=== PATIENT | male | born 1930 | race Caucasian/White ===

== ENCOUNTER 2017-07-23 23:27 | Inpatient (IN) | payer MEDICARE, OTHER ==
[~2017-07-23] VITALS: Ht 175.3 cm; Wt 64.0 kg
[2017-07-24] MEDS ORDERED: NITR0.3T SL (00:15)
[2017-07-24] MEDS ORDERED: DIVA125C PO (00:15)
[2017-07-24] MEDS ORDERED: CARV25TA PO (00:15)
[2017-07-24] MEDS ORDERED: NORT10CA PO (00:15)
[2017-07-24] MEDS ORDERED: LISI2.5T PO (00:15)
[2017-07-24] MEDS ORDERED: SPIR25TA3 PO (00:15)
[2017-07-24] MEDS ORDERED: APIX2.5T PO (00:15)
[2017-07-24] MEDS ORDERED: RIVA1PAT22 TD (00:15)
[2017-07-24] MEDS ORDERED: ALPR0.254 PO (00:15)
[2017-07-24] MEDS ORDERED: SENN1TAB21 PO (00:15)
[2017-07-24 00:37] LABS: BASO # 0.1 x10^3/uL (0.0-0.2); BASO % 1 % (0-3); EOS # 0.6 x10^3/uL (0.0-0.7); EOS % 8 % (0-3); HEMATOCRIT 36.2 % (39.0-53.0); HEMOGLOBIN 12.3 g/dL (13.0-17.5); LYMPH # 2.2 x10^3/uL (1.0-4.8); LYMPH % 27 % (24-48); MEAN CORPUSCULAR HEMOGLOBIN 33 pg (25-35); MEAN CORPUSCULAR HGB CONC 34 g/dL (31-37); MEAN CORPUSCULAR VOLUME 97 fL (79-100); MONO # 0.9 x10^3/uL (0.0-1.1); MONO % 11 % (0-9); NEUT # 4.4 x10^3uL (1.8-7.7); NEUT % 54 % (31-73); PLATELET COUNT 219 x10^3/uL (140-400); RED BLOOD COUNT 3.73 x10^6/uL (4.30-5.70); RED CELL DISTRIBUTION WIDTH 13.9 % (11.5-14.5); WHITE BLOOD COUNT 8.1 x10^3/uL (4.0-11.0)
[2017-07-24 00:47] LABS: ALBUMIN 3.1 g/dL (3.4-5.0); ALBUMIN/GLOBULIN RATIO 0.7 (1.0-1.7); CREATININE 1.3 mg/dL (0.7-1.3); GFR 52.1; MAGNESIUM 1.8 mg/dL (1.8-2.4); POTASSIUM 3.8 mmol/L (3.5-5.1); TOTAL BILIRUBIN 0.3 mg/dL (0.2-1.0); TOTAL PROTEIN 7.4 g/dL (6.4-8.2)
[2017-07-24 00:49] LABS: VAL ACID 24 mcg/mL (50-100)
[2017-07-24 01:13] LABS: CLARITY,URINE CLEAR; COLOR,URINE YELLOW
[2017-07-24 01:14] LABS: BACTERIA,URINE 0 /HPF (0-FEW); BILIRUBIN,URINE NEG (NEG); GLUCOSE,URINE NEG (NEG); NITRITE,URINE NEG (NEG); RBC,URINE 0 /HPF (0-2); SQUAMOUS EPITHELIAL CELL,UR OCC /LPF; UROBILINOGEN,URINE 0.2 mg/dL (0.2 mg/dL); WBC,URINE OCC /HPF (0-4)
--- NOTE | 2017-07-24 02:16 | EKG ---
[address] [address] Test Date: 2017-07-23 Test Time: 23:58:19 Pat Name: PATI CAIN Department: Room: [facility] 1 Gender: M Floating Operator: WENDY : 1930 Requested By: FRANCISCO FLORES Order Number: [id number] Reading MD: Jovani Poole Measurements Intervals [place] Rate: 75 P: MS: QRS: -160 QRSD: 184 T: -2 QT: 460 QTc: 517 Interpretive Statements SINUS RHYTHM V PACED BEATS NONSPECIFIC ST-T WAVE CHANGES ABNORMAL ECG RI6.01 No previous ECG available for comparison Electronically Signed On 07-24-2017 16:57:00 [employer]LET TEACHER by Jovani Poole
[2017-07-24] MEDS ORDERED: NORTRIPTYLINE 10 MG CAPSULE PO SCH (02:30)
[2017-07-24] MEDS: DIVALPROEX 125 MG CAP.SPRINK PO SCH ×3 (02:31→20:23)
[2017-07-24] MEDS: ALPRAZolam 0.25 MG TABLET PO PRN (02:31)
[2017-07-24 03:12] VITALS: BP 114/61
--- NOTE | 2017-07-24 03:54 | PHYS DOC ---
Past History Past Medical History: A-Fib, Anxiety, CAD, CHF, Dementia, GERD Past Surgical History: Coronary Bypass Surgery, Pacemaker Alcohol Use: None Drug Use: None Adult General Chief Complaint Chief Complaint: PSYCH EVALUATION HPI HPI 78-year-old male with history of dementia lives in a memory care unit now sent for medical clearance for psychiatric evaluation. Apparently patient has eloped from his living arrangement at least twice. There is also concerned that he was "making war references" to the [place] War in which she participated. Patient has no complaints and is cheerful and alert. No recent illness Review of Systems Review of Systems Constitutional: Denies fever or chills [] Eyes: Denies change in visual acuity, redness, or eye pain [] HENT: Denies nasal congestion or sore throat [] Respiratory: Denies cough or shortness of breath [] Cardiovascular: No additional information not addressed in HPI [] GI: Denies abdominal pain, nausea, vomiting, bloody stools or diarrhea [] : Denies dysuria or hematuria [] Musculoskeletal: Denies back pain or joint pain [] Integument: Denies rash or skin lesions [] Neurologic: Denies headache, focal weakness or sensory changes [] Endocrine: Denies polyuria or polydipsia [] All other systems were reviewed and found to be within normal limits, except as documented in this note. Allergies Allergies Allergies Coded Allergies Type Severity Reaction Last Updated Verified Emlqefb-Nwm-Frb Reductase Inhibitor Allergy Unknown 07/24/17 Yes morphine Allergy Unknown 07/24/17 Yes niacin Allergy Unknown 07/24/17 Yes Physical Exam Physical Exam Constitutional: Well developed, well nourished, no acute distress, non-toxic appearance. [] HENT: Normocephalic, atraumatic, bilateral external ears normal, oropharynx moist, no oral exudates, nose normal. [] Eyes: PERRLA, EOMI, conjunctiva normal, no discharge. [] Neck: Normal range of motion, no tenderness, supple, no stridor. [] Cardiovascular:Heart rate regular rhythm, no murmur [] Lungs & Thorax: Bilateral breath sounds clear to auscultation [] Abdomen: Bowel sounds normal, soft, no tenderness, no masses, no pulsatile masses. [] Skin: Warm, dry, no erythema, no rash. [] Back: No tenderness, no CVA tenderness. [] Extremities: No tenderness, no cyanosis, no clubbing, ROM intact, no edema. [] Neurologic: Alert and oriented X 3, normal motor function, normal sensory function, no focal deficits noted. [] Psychologic: Affect normal, judgement normal, mood normal. [] Current Patient Data Vital Signs Vital Signs Date Time Temp Pulse Resp B/P (MAP) Pulse Ox O2 Delivery O2 Flow Rate FiO2 07/24/17 03:12 97.5 75 22 114/61 (78) 98 Room Air Lab Results Laboratory Tests Test 07/23/17 23:59 07/24/17 00:57 White Blood Count 8.1 x10^3/uL (4.0-11.0) Red Blood Count 3.73 x10^6/uL (4.30-5.70) L Hemoglobin 12.3 g/dL (13.0-17.5) L Hematocrit 36.2 % (39.0-53.0) L Mean Corpuscular Volume 97 fL (79-100) Mean Corpuscular Hemoglobin 33 pg (25-35) Mean Corpuscular Hemoglobin Concent 34 g/dL (31-37) Red Cell Distribution Width 13.9 % (11.5-14.5) Platelet Count 219 x10^3/uL (140-400) Neutrophils (%) (Auto) 54 % (31-73) Lymphocytes (%) (Auto) 27 % (24-48) Monocytes (%) (Auto) 11 % (0-9) H Eosinophils (%) (Auto) 8 % (0-3) H Basophils (%) (Auto) 1 % (0-3) Neutrophils # (Auto) 4.4 x10^3uL (1.8-7.7) Lymphocytes # (Auto) 2.2 x10^3/uL (1.0-4.8) Monocytes # (Auto) 0.9 x10^3/uL (0.0-1.1) Eosinophils # (Auto) 0.6 x10^3/uL (0.0-0.7) Basophils # (Auto) 0.1 x10^3/uL (0.0-0.2) Sodium Level 137 mmol/L (136-145) Potassium Level 3.8 mmol/L (3.5-5.1) Chloride Level 102 mmol/L (98-107) Carbon Dioxide Level 26 mmol/L (21-32) Anion Gap 9 (6-14) Blood Urea Nitrogen 23 mg/dL (8-26) Creatinine 1.3 mg/dL (0.7-1.3) Estimated GFR (Cockcroft-Gault) 52.1 BUN/Creatinine Ratio 18 (6-20) Glucose Level 120 mg/dL (70-99) H Calcium Level 9.0 mg/dL (8.5-10.1) Magnesium Level 1.8 mg/dL (1.8-2.4) Total Bilirubin 0.3 mg/dL (0.2-1.0) Aspartate Amino Transferase (AST) 31 U/L (15-37) Alanine Aminotransferase (ALT) 14 U/L (16-63) L Alkaline Phosphatase 62 U/L (46-116) Total Protein 7.4 g/dL (6.4-8.2) Albumin 3.1 g/dL (3.4-5.0) L Albumin/Globulin Ratio 0.7 (1.0-1.7) L Valproic Acid Level 24 mcg/mL (50-100) L Valproic Acid Last Dose Date 07/23/2017 Valproic Acid Last Dose Time 2100 Urine Collection Type Unknown Urine Color Yellow Urine Clarity Clear Urine pH 5.0 Urine Specific [place] 1.020 Urine Protein Neg (NEG-TRACE) Urine Glucose (UA) Neg mg/dL (NEG) Urine Ketones (Stick) Neg mg/dL (NEG) Urine Blood Neg (NEG) Urine Nitrite Neg (NEG) Urine Bilirubin Neg (NEG) Urine Urobilinogen Dipstick 0.2 mg/dL (0.2 mg/dL) Urine Leukocyte Esterase Neg (NEG) Urine RBC 0 /HPF (0-2) Urine WBC Occ /HPF (0-4) Urine Squamous Epithelial Cells Occ /LPF Urine Bacteria 0 /HPF (0-FEW) EKG EKG [] Radiology/Procedures Radiology/Procedures [] Course & Med Decision Making Course & Med Decision Making Pertinent Labs and Imaging studies reviewed. (See chart for details) Patient with behavioral difficulties and multiple elopements from his memory care unit. Laboratory workup unremarkable and patient medically clear for psychiatric evaluation. He is accepted to [facility] for further workup and treatment [] Dragon Disclaimer Dragon Disclaimer This electronic medical record was generated, in whole or in part, using a voice recognition dictation system. Departure Departure: Impression: Primary Impression: Dementia Additional Impression: Neurocognitive disorder Disposition: ADMITTED INPATIENT Condition: STABLE Referrals: ABHILASH BASILIO MD (PCP) Problem Qualifiers FRANCISCO FLORES MD Jul 24, 2017 03:54
[2017-07-24 06:10] VITALS: BP 104/55
[2017-07-24] MEDS ORDERED: SENNOSIDES/DOCUSATE 8.6/50MG TABLET. PO PRN (08:15)
[2017-07-24] MEDS ORDERED: NITROGLYCERIN SUBLINGUAL 0.4 MG BOTTLE OF 25. SL PRN (08:15)
[2017-07-24] MEDS: SPIRONOLACTONE 25 MG TABLET PO SCH (10:53)
[2017-07-24] MEDS: APIXABAN 2.5 MG TABLET PO SCH ×2 (10:53→20:23)
[2017-07-24] MEDS: LISINOPRIL 2.5 MG TABLET PO SCH (10:53)
[2017-07-24] MEDS: RIVASTIGMINE 4.6MG PATCH. TD SCH (10:54)
[2017-07-24] MEDS: CARVEDILOL 12.5 MG TABLET PO SCH ×2 (10:54→16:46)
[2017-07-24 14:28] LABS: THYROID STIM HORMONE (TSH) 1.551 uIU/mL (0.358-3.740)
[2017-07-24 16:34] VITALS: BP 128/89
[2017-07-24] MEDS: MIRTAZAPINE 7.5 MG TABLET. PO SCH ×2 (20:25→20:42)
[2017-07-24 21:11] LABS: T3 TOTAL 77 ng/dL (71-180); THYROXINE 5.3 ug/dL (4.5-12.0)
--- NOTE | 2017-07-24 22:42 | PDOC ---
Exam Note: Michi Note: Please also refer to the separate dictated note~for this date of service dictated separately.~Patient seen individually. Discussed the patient with Nursing staff reviewed the chart.~Reviewed interim history and current functioning. Reviewed vital signs,~Labs/ Radiology~and current medications noted below. Continue current treatment with the changes noted in the dictated addendum note Assessment: Vital Signs: Vital Signs Date Time Temp Pulse Resp B/P (MAP) Pulse Ox O2 Delivery O2 Flow Rate FiO2 07/24/17 16:46 96 128/89 07/24/17 16:34 97.9 18 98 07/24/17 03:12 Room Air Labs: Laboratory Tests Test 07/23/17 23:59 07/24/17 00:57 White Blood Count 8.1 x10^3/uL (4.0-11.0) Red Blood Count 3.73 x10^6/uL (4.30-5.70) L Hemoglobin 12.3 g/dL (13.0-17.5) L Hematocrit 36.2 % (39.0-53.0) L Mean Corpuscular Volume 97 fL (79-100) Mean Corpuscular Hemoglobin 33 pg (25-35) Mean Corpuscular Hemoglobin Concent 34 g/dL (31-37) Red Cell Distribution Width 13.9 % (11.5-14.5) Platelet Count 219 x10^3/uL (140-400) Neutrophils (%) (Auto) 54 % (31-73) Lymphocytes (%) (Auto) 27 % (24-48) Monocytes (%) (Auto) 11 % (0-9) H Eosinophils (%) (Auto) 8 % (0-3) H Basophils (%) (Auto) 1 % (0-3) Neutrophils # (Auto) 4.4 x10^3uL (1.8-7.7) Lymphocytes # (Auto) 2.2 x10^3/uL (1.0-4.8) Monocytes # (Auto) 0.9 x10^3/uL (0.0-1.1) Eosinophils # (Auto) 0.6 x10^3/uL (0.0-0.7) Basophils # (Auto) 0.1 x10^3/uL (0.0-0.2) Sodium Level 137 mmol/L (136-145) Potassium Level 3.8 mmol/L (3.5-5.1) Chloride Level 102 mmol/L (98-107) Carbon Dioxide Level 26 mmol/L (21-32) Anion Gap 9 (6-14) Blood Urea Nitrogen 23 mg/dL (8-26) Creatinine 1.3 mg/dL (0.7-1.3) Estimated GFR (Cockcroft-Gault) 52.1 BUN/Creatinine Ratio 18 (6-20) Glucose Level 120 mg/dL (70-99) H Calcium Level 9.0 mg/dL (8.5-10.1) Magnesium Level 1.8 mg/dL (1.8-2.4) Total Bilirubin 0.3 mg/dL (0.2-1.0) Aspartate Amino Transferase (AST) 31 U/L (15-37) Alanine Aminotransferase (ALT) 14 U/L (16-63) L Alkaline Phosphatase 62 U/L (46-116) Total Protein 7.4 g/dL (6.4-8.2) Albumin 3.1 g/dL (3.4-5.0) L Albumin/Globulin Ratio 0.7 (1.0-1.7) L Valproic Acid Level 24 mcg/mL (50-100) L Valproic Acid Last Dose Date 07/23/2017 Valproic Acid Last Dose Time 2100 Urine Collection Type Unknown Urine Color Yellow Urine Clarity Clear Urine pH 5.0 Urine Specific [place] 1.020 Urine Protein Neg (NEG-TRACE) Urine Glucose (UA) Neg mg/dL (NEG) Urine Ketones (Stick) Neg mg/dL (NEG) Urine Blood Neg (NEG) Urine Nitrite Neg (NEG) Urine Bilirubin Neg (NEG) Urine Urobilinogen Dipstick 0.2 mg/dL (0.2 mg/dL) Urine Leukocyte Esterase Neg (NEG) Urine RBC 0 /HPF (0-2) Urine WBC Occ /HPF (0-4) Urine Squamous Epithelial Cells Occ /LPF Urine Bacteria 0 /HPF (0-FEW) Current Medications: Meds: Current Medications Alprazolam (Xanax) 0.25 mg PRN QHS PRN PO ANXIETY / AGITATION Last administered on 07/24/17at 02:31; Start 07/24/17 at 02:30 Divalproex Sodium (Depakote Sprinkles) 125 mg BID PO Last administered on at 10:54; Start 07/24/17 at 02:30; Stop 07/24/17 at 19:23; Status DC Nortriptyline HCl (Pamelor) 10 mg QHS PO Last administered on 07/24/17at 02:31; Start 07/24/17 at 02:30; Stop 07/24/17 at 19:23; Status DC Rivastigmine (Exelon) 1 patch DAILY TD Last administered on 07/24/17at 10:54; Start 07/24/17 at 09:00 Apixaban (Eliquis) 2.5 mg BID PO Last administered on 07/24/17at 20:23; Start at 09:00 Lisinopril (Prinivil) 2.5 mg DAILY PO Last administered on 07/24/17at 10:53; Start 07/24/17 at 09:00 Senna/Docusate Sodium (Senna Plus) 1 tab PRN QHS PRN PO CONSTIPATION; Start 05/29 at 08:15 Spironolactone (Aldactone) 25 mg DAILY PO Last administered on 07/24/17at 10:53 ; Start 07/24/17 at 09:00 Carvedilol (Coreg) 25 mg BIDWMEALS PO Last administered on 07/24/17at 16:46; Start 07/24/17 at 08:00 Nitroglycerin (Nitrostat) 0.4 mg PRN Q5MIN PRN SL CHEST PAIN; Start 07/24/17 at 08:15 Divalproex Sodium (Depakote Sprinkles) 125 mg TID@0900,1700,2100 PO Last administered on 07/24/17at 20:23; Start 07/24/17 at 21:00 Mirtazapine (Remeron) 7.5 mg QHS PO ; Start 07/24/17 at 21:00 Active Scripts Active Reported Senna Plus Tablet (Sennosides/Docusate Sodium) 1 Each Tablet 1 Tab PO PRN QHS PRN Nitrostat (Nitroglycerin) 0.3 Mg Tab.subl 0.3 Mg SL PRN Q5MIN PRN MDD 3 doses in 15 minutes Alprazolam 0.25 Mg Tablet 0.25 Mg PO PRN QHS PRN Spironolactone 25 Mg Tablet 25 Mg PO DAILY EXELON 4.6mg/24hr (Rivastigmine) 1 Each Patch.td24 1 Patch TD DAILY Nortriptyline Hcl 10 Mg Capsule 10 Mg PO QHS Lisinopril 2.5 Mg Tablet 2.5 Mg PO DAILY Eliquis (Apixaban) 2.5 Mg Tablet 2.5 Mg PO BID Depakote Sprinkle (Divalproex Sodium) 125 Mg Cap.sprink 125 Mg PO BID Coreg (Carvedilol) 25 Mg Tablet 25 Mg PO BIDWMEALS I have reviewed the current psychotropics carefully including drug interactions. Risk benefit ratio favors no change other than as noted in my dictated progress note. Diagnosis: Problems: (1) Dementia (2) Neurocognitive disorder LUIS CARLOS GALVEZ MD Jul 24, 2017 22:42
[2017-07-25 02:08] LABS: HEMOGLOBIN A1C 5.5 % (4.8-5.6)
[2017-07-25 06:47] VITALS: BP 109/66
[2017-07-25] MEDS: APIXABAN 2.5 MG TABLET PO SCH ×3 (08:31→21:05)
[2017-07-25] MEDS: LISINOPRIL 2.5 MG TABLET PO SCH (08:31)
[2017-07-25] MEDS: SPIRONOLACTONE 25 MG TABLET PO SCH (08:31)
[2017-07-25] MEDS: DIVALPROEX 125 MG CAP.SPRINK PO SCH ×4 (08:31→21:07)
[2017-07-25] MEDS: RIVASTIGMINE 4.6MG PATCH. TD SCH (08:32)
[2017-07-25] MEDS: CARVEDILOL 12.5 MG TABLET PO SCH ×2 (08:32→16:39)
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
[2017-07-25 16:05] VITALS: BP 121/75
[2017-07-25] MEDS: MIRTAZAPINE 7.5 MG TABLET. PO SCH ×2 (21:00→21:05)
[2017-07-25] MEDS: traZODone 50 MG TABLET. PO SCH ×2 (21:00→21:07)
[2017-07-26 06:40] VITALS: BP 107/56
[2017-07-26] MEDS: CARVEDILOL 12.5 MG TABLET PO SCH ×3 (08:00→17:00)
[2017-07-26] MEDS: RIVASTIGMINE 4.6MG PATCH. TD SCH ×3 (09:00→14:10)
[2017-07-26] MEDS: DIVALPROEX 125 MG CAP.SPRINK PO SCH ×4 (09:00→23:39)
[2017-07-26] MEDS: SPIRONOLACTONE 25 MG TABLET PO SCH ×2 (09:00→09:39)
[2017-07-26] MEDS: LISINOPRIL 2.5 MG TABLET PO SCH ×2 (09:00→09:39)
[2017-07-26] MEDS: APIXABAN 2.5 MG TABLET PO SCH ×3 (09:00→23:37)
[2017-07-26 16:52] VITALS: BP 96/49
--- NOTE | 2017-07-26 18:58 | PDOC ---
Exam Note: Michi Note: This is late entry for 07.25.2017. Please also refer to the separate dictated note~for this date of service dictated separately.~Patient seen individually. Discussed the patient with Nursing staff reviewed the chart.~Reviewed interim history and current functioning. Reviewed vital signs,~Labs/ Radiology~and current medications noted below. Continue current treatment with the changes noted in the dictated addendum note Assessment: Vital Signs: Vital Signs Date Time Temp Pulse Resp B/P (MAP) Pulse Ox O2 Delivery O2 Flow Rate FiO2 07/26/17 16:52 98.1 75 16 96/49 (65) 98 07/26/17 06:40 Room Air I&O Intake and Output 07/26/17 07:00 Intake Total 1320 ml Balance 1320 ml Intake Oral 1320 ml Current Medications: Meds: Current Medications Alprazolam (Xanax) 0.25 mg PRN QHS PRN PO ANXIETY / AGITATION Last administered on 07/24/17 02:31; Start 07/24/17 at 02:30 Divalproex Sodium (Depakote Sprinkles) 125 mg BID PO Last administered on at 10:54; Start 07/24/17 at 02:30; Stop 07/24/17 at 19:23; Status DC Nortriptyline HCl (Pamelor) 10 mg QHS PO Last administered on 07/24/17at 02:31; Start 07/24/17 at 02:30; Stop 07/24/17 at 19:23; Status DC Rivastigmine (Exelon) 1 patch DAILY TD Last administered on 07/26/17at 14:10; Start 07/24/17 at 09:00; Stop 07/26/17 at 18:24; Status DC Apixaban (Eliquis) 2.5 mg BID PO Last administered on 07/25/17at 08:31; Start at 09:00 Lisinopril (Prinivil) 2.5 mg DAILY PO Last administered on 07/25/17at 08:31; Start 07/24/17 at 09:00 Senna/Docusate Sodium (Senna Plus) 1 tab PRN QHS PRN PO CONSTIPATION; Start 05/29 at 08:15 Spironolactone (Aldactone) 25 mg DAILY PO Last administered on 07/25/17at 08:31 ; Start 07/24/17 at 09:00 Carvedilol (Coreg) 25 mg BIDWMEALS PO Last administered on 07/25/17at 16:39; Start 07/24/17 at 08:00 Nitroglycerin (Nitrostat) 0.4 mg PRN Q5MIN PRN SL CHEST PAIN; Start 07/24/17 at 08:15 Divalproex Sodium (Depakote Sprinkles) 125 mg TID@0900,1700,2100 PO Last administered on 07/26/17at 17:08; Start 07/24/17 at 21:00 Mirtazapine (Remeron) 7.5 mg QHS PO ; Start 07/24/17 at 21:00; Stop 07/26/17 at 18:24; Status DC Trazodone HCl (Desyrel) 50 mg QHS PO ; Start 07/25/17 at 21:00 Trazodone HCl (Desyrel) 50 mg PRN QHS PRN PO insomnia ; Start 07/25/17 at 19:15 Mirtazapine (Remeron) 15 mg QHS PO ; Start 07/26/17 at 21:00 Risperidone (RisperDAL) 0.25 mg DAILY SL ; Start 07/27/17 at 09:00 Active Scripts Active Reported Senna Plus Tablet (Sennosides/Docusate Sodium) 1 Each Tablet 1 Tab PO PRN QHS PRN Nitrostat (Nitroglycerin) 0.3 Mg Tab.subl 0.3 Mg SL PRN Q5MIN PRN MDD 3 doses in 15 minutes Alprazolam 0.25 Mg Tablet 0.25 Mg PO PRN QHS PRN Spironolactone 25 Mg Tablet 25 Mg PO DAILY EXELON 4.6mg/24hr (Rivastigmine) 1 Each Patch.td24 1 Patch TD DAILY Nortriptyline Hcl 10 Mg Capsule 10 Mg PO QHS Lisinopril 2.5 Mg Tablet 2.5 Mg PO DAILY Eliquis (Apixaban) 2.5 Mg Tablet 2.5 Mg PO BID Depakote Sprinkle (Divalproex Sodium) 125 Mg Cap.sprink 125 Mg PO BID Coreg (Carvedilol) 25 Mg Tablet 25 Mg PO BIDWMEALS I have reviewed the current psychotropics carefully including drug interactions. Risk benefit ratio favors no change other than as noted in my dictated progress note. 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
--- NOTE | 2017-07-26 19:17 | PDOC ---
Exam Note: Michi Note: Please also refer to the separate dictated note~for this date of service dictated separately.~Patient seen individually. Discussed the patient with Nursing staff reviewed the chart.~Reviewed interim history and current functioning. Reviewed vital signs,~Labs/ Radiology~and current medications noted below. Continue current treatment with the changes noted in the dictated addendum note Assessment: Vital Signs: Vital Signs Date Time Temp Pulse Resp B/P (MAP) Pulse Ox O2 Delivery O2 Flow Rate FiO2 07/26/17 16:52 98.1 75 16 96/49 (65) 98 07/26/17 06:40 Room Air I&O Intake and Output 07/26/17 07:00 Intake Total 1320 ml Balance 1320 ml Intake Oral 1320 ml Current Medications: Meds: Current Medications Alprazolam (Xanax) 0.25 mg PRN QHS PRN PO ANXIETY / AGITATION Last administered on 07/24/17 02:31; Start 07/24/17 at 02:30 Divalproex Sodium (Depakote Sprinkles) 125 mg BID PO Last administered on at 10:54; Start 07/24/17 at 02:30; Stop 07/24/17 at 19:23; Status DC Nortriptyline HCl (Pamelor) 10 mg QHS PO Last administered on 07/24/17 02:31; Start 07/24/17 at 02:30; Stop 07/24/17 at 19:23; Status DC Rivastigmine (Exelon) 1 patch DAILY TD Last administered on 07/26/17 14:10; Start 07/24/17 at 09:00; Stop 07/26/17 at 18:24; Status DC Apixaban (Eliquis) 2.5 mg BID PO Last administered on 07/25/17 08:31; Start at 09:00 Lisinopril (Prinivil) 2.5 mg DAILY PO Last administered on 07/25/17 08:31; Start 07/24/17 at 09:00 Senna/Docusate Sodium (Senna Plus) 1 tab PRN QHS PRN PO CONSTIPATION; Start 05/29 at 08:15 Spironolactone (Aldactone) 25 mg DAILY PO Last administered on 07/25/17at 08:31 ; Start 07/24/17 at 09:00 Carvedilol (Coreg) 25 mg BIDWMEALS PO Last administered on 07/25/17at 16:39; Start 07/24/17 at 08:00 Nitroglycerin (Nitrostat) 0.4 mg PRN Q5MIN PRN SL CHEST PAIN; Start 07/24/17 at 08:15 Divalproex Sodium (Depakote Sprinkles) 125 mg TID@0900,1700,2100 PO Last administered on 07/26/17at 17:08; Start 07/24/17 at 21:00 Mirtazapine (Remeron) 7.5 mg QHS PO ; Start 07/24/17 at 21:00; Stop 07/26/17 at 18:24; Status DC Trazodone HCl (Desyrel) 50 mg QHS PO ; Start 07/25/17 at 21:00 Trazodone HCl (Desyrel) 50 mg PRN QHS PRN PO insomnia ; Start 07/25/17 at 19:15 Mirtazapine (Remeron) 15 mg QHS PO ; Start 07/26/17 at 21:00 Risperidone (RisperDAL) 0.25 mg DAILY SL ; Start 07/27/17 at 09:00 Active Scripts Active Reported Senna Plus Tablet (Sennosides/Docusate Sodium) 1 Each Tablet 1 Tab PO PRN QHS PRN Nitrostat (Nitroglycerin) 0.3 Mg Tab.subl 0.3 Mg SL PRN Q5MIN PRN MDD 3 doses in 15 minutes Alprazolam 0.25 Mg Tablet 0.25 Mg PO PRN QHS PRN Spironolactone 25 Mg Tablet 25 Mg PO DAILY EXELON 4.6mg/24hr (Rivastigmine) 1 Each Patch.td24 1 Patch TD DAILY Nortriptyline Hcl 10 Mg Capsule 10 Mg PO QHS Lisinopril 2.5 Mg Tablet 2.5 Mg PO DAILY Eliquis (Apixaban) 2.5 Mg Tablet 2.5 Mg PO BID Depakote Sprinkle (Divalproex Sodium) 125 Mg Cap.sprink 125 Mg PO BID Coreg (Carvedilol) 25 Mg Tablet 25 Mg PO BIDWMEALS I have reviewed the current psychotropics carefully including drug interactions. Risk benefit ratio favors no change other than as noted in my dictated progress note. 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
[2017-07-26] MEDS ORDERED: MIRTAZAPINE 15 MG TABLET PO SCH (21:00)
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
[2017-07-26] MEDS: traZODone 50 MG TABLET. PO SCH (23:37)
[2017-07-27] MEDS: CARVEDILOL 12.5 MG TABLET PO SCH ×2 (08:00→18:45)
[2017-07-27] MEDS: APIXABAN 2.5 MG TABLET PO SCH ×2 (08:00→21:09)
[2017-07-27] MEDS: DIVALPROEX 125 MG CAP.SPRINK PO SCH ×2 (08:00→21:00)
[2017-07-27] MEDS: LISINOPRIL 2.5 MG TABLET PO SCH (09:00)
[2017-07-27] MEDS: SPIRONOLACTONE 25 MG TABLET PO SCH (09:00)
[2017-07-27 09:41] LABS: BASO # 0.1 x10^3/uL (0.0-0.2); BASO % 1 % (0-3); EOS # 0.7 x10^3/uL (0.0-0.7); EOS % 10 % (0-3); HEMATOCRIT 38.3 % (39.0-53.0); HEMOGLOBIN 12.9 g/dL (13.0-17.5); LYMPH # 1.9 x10^3/uL (1.0-4.8); LYMPH % 27 % (24-48); MEAN CORPUSCULAR HEMOGLOBIN 33 pg (25-35); MEAN CORPUSCULAR HGB CONC 34 g/dL (31-37); MEAN CORPUSCULAR VOLUME 97 fL (79-100); MONO # 0.9 x10^3/uL (0.0-1.1); MONO % 13 % (0-9); NEUT # 3.4 x10^3uL (1.8-7.7); NEUT % 49 % (31-73); PLATELET COUNT 223 x10^3/uL (140-400); RED BLOOD COUNT 3.96 x10^6/uL (4.30-5.70); WHITE BLOOD COUNT 6.9 x10^3/uL (4.0-11.0)
[2017-07-27 09:58] LABS: ALBUMIN/GLOBULIN RATIO 0.7 (1.0-1.7); ALK PHOS 58 U/L (46-116); ALT (SGPT) 13 U/L (16-63); ANION GAP 8 (6-14); AST (SGOT) 27 U/L (15-37); BLOOD UREA NITROGEN 24 mg/dL (8-26); BUN/CREATININE RATIO 18 (6-20); CALCIUM 9.2 mg/dL (8.5-10.1); CARBON DIOXIDE 28 mmol/L (21-32); CHLORIDE 103 mmol/L (98-107); CREATININE 1.3 mg/dL (0.7-1.3); GFR 52.1; GLUCOSE 140 mg/dL (70-99); MAGNESIUM 1.9 mg/dL (1.8-2.4); POTASSIUM 3.5 mmol/L (3.5-5.1); SODIUM 139 mmol/L (136-145); TOTAL BILIRUBIN 0.5 mg/dL (0.2-1.0); TOTAL PROTEIN 7.3 g/dL (6.4-8.2)
[2017-07-27 09:59] LABS: VAL ACID 27 mcg/mL (50-100)
[2017-07-27 10:07] LABS: % BANDS 1 % (0-9); % BASOS 2 % (0-3); % EOS 9 % (0-5); % LYMPHS 33 % (24-48); % MONOS 7 % (0-10); % SEGS 48 % (35-66)
[2017-07-27 10:08] LABS: PLT ESTIMATE ADEQUATE (ADEQUATE)
[2017-07-27 11:09] VITALS: BP 94/63
[2017-07-27] MEDS: risperiDONE ORAL 1 MG/ML 30ml BOTTLE. SL SCH (11:13)
[2017-07-27] MEDS: ALPRAZolam 0.25 MG TABLET PO PRN (14:55)
--- NOTE | 2017-07-27 19:45 | PDOC ---
Exam Note: Michi Note: Please also refer to the separate dictated note~for this date of service dictated separately.~Patient seen individually. Discussed the patient with Nursing staff reviewed the chart.~Reviewed interim history and current functioning. Reviewed vital signs,~Labs/ Radiology~and current medications noted below. Continue current treatment with the changes noted in the dictated addendum note Assessment: Vital Signs: Vital Signs Date Time Temp Pulse Resp B/P (MAP) Pulse Ox O2 Delivery O2 Flow Rate FiO2 07/27/17 11:09 73 94/63 (73) 98 07/26/17 16:52 98.1 16 07/26/17 06:40 Room Air I&O Intake and Output 07/27/17 07:00 Intake Total 600 ml Balance 600 ml Intake Oral 600 ml # Voids 1 Labs: Laboratory Tests Test 07/27/17 09:27 White Blood Count 6.9 x10^3/uL (4.0-11.0) Red Blood Count 3.96 x10^6/uL (4.30-5.70) L Hemoglobin 12.9 g/dL (13.0-17.5) L Hematocrit 38.3 % (39.0-53.0) L Mean Corpuscular Volume 97 fL (79-100) Mean Corpuscular Hemoglobin 33 pg (25-35) Mean Corpuscular Hemoglobin Concent 34 g/dL (31-37) Red Cell Distribution Width 14.0 % (11.5-14.5) Platelet Count 223 x10^3/uL (140-400) Neutrophils (%) (Auto) 49 % (31-73) Lymphocytes (%) (Auto) 27 % (24-48) Monocytes (%) (Auto) 13 % (0-9) H Eosinophils (%) (Auto) 10 % (0-3) H Basophils (%) (Auto) 1 % (0-3) Neutrophils # (Auto) 3.4 x10^3uL (1.8-7.7) Lymphocytes # (Auto) 1.9 x10^3/uL (1.0-4.8) Monocytes # (Auto) 0.9 x10^3/uL (0.0-1.1) Eosinophils # (Auto) 0.7 x10^3/uL (0.0-0.7) Basophils # (Auto) 0.1 x10^3/uL (0.0-0.2) Segmented Neutrophils % 48 % (35-66) Band Neutrophils % 1 % (0-9) Lymphocytes % 33 % (24-48) Monocytes % 7 % (0-10) Eosinophils % 9 % (0-5) H Basophils % 2 % (0-3) Platelet Estimate Adequate (ADEQUATE) Large Platelets Occ Sodium Level 139 mmol/L (136-145) Potassium Level 3.5 mmol/L (3.5-5.1) Chloride Level 103 mmol/L (98-107) Carbon Dioxide Level 28 mmol/L (21-32) Anion Gap 8 (6-14) Blood Urea Nitrogen 24 mg/dL (8-26) Creatinine 1.3 mg/dL (0.7-1.3) Estimated GFR (Cockcroft-Gault) 52.1 BUN/Creatinine Ratio 18 (6-20) Glucose Level 140 mg/dL (70-99) H Calcium Level 9.2 mg/dL (8.5-10.1) Magnesium Level 1.9 mg/dL (1.8-2.4) Total Bilirubin 0.5 mg/dL (0.2-1.0) Aspartate Amino Transferase (AST) 27 U/L (15-37) Alanine Aminotransferase (ALT) 13 U/L (16-63) L Alkaline Phosphatase 58 U/L (46-116) Total Protein 7.3 g/dL (6.4-8.2) Albumin 3.0 g/dL (3.4-5.0) L Albumin/Globulin Ratio 0.7 (1.0-1.7) L Valproic Acid Level 27 mcg/mL (50-100) L Valproic Acid Last Dose Date 07/26/2017 Valproic Acid Last Dose Time 2100 Current Medications: Meds: Current Medications Alprazolam (Xanax) 0.25 mg PRN QHS PRN PO ANXIETY / AGITATION Last administered on 07/27/17at 14:55; Start 07/24/17 at 02:30 Divalproex Sodium (Depakote Sprinkles) 125 mg BID PO Last administered on at 10:54; Start 07/24/17 at 02:30; Stop 07/24/17 at 19:23; Status DC Nortriptyline HCl (Pamelor) 10 mg QHS PO Last administered on 07/24/17at 02:31; Start 07/24/17 at 02:30; Stop 07/24/17 at 19:23; Status DC Rivastigmine (Exelon) 1 patch DAILY TD Last administered on 07/26/17at 14:10; Start 07/24/17 at 09:00; Stop 07/26/17 at 18:24; Status DC Apixaban (Eliquis) 2.5 mg BID PO Last administered on 07/27/17at 08:00; Start at 09:00 Lisinopril (Prinivil) 2.5 mg DAILY PO Last administered on 07/25/17at 08:31; Start 07/24/17 at 09:00 Senna/Docusate Sodium (Senna Plus) 1 tab PRN QHS PRN PO CONSTIPATION; Start 05/29 at 08:15 Spironolactone (Aldactone) 25 mg DAILY PO Last administered on 07/25/17at 08:31 ; Start 07/24/17 at 09:00 Carvedilol (Coreg) 25 mg BIDWMEALS PO Last administered on 07/25/17at 16:39; Start 07/24/17 at 08:00 Nitroglycerin (Nitrostat) 0.4 mg PRN Q5MIN PRN SL CHEST PAIN; Start 07/24/17 at 08:15 Divalproex Sodium (Depakote Sprinkles) 125 mg TID@0900,1700,2100 PO Last administered on 07/27/17at 08:00; Start 07/24/17 at 21:00; Stop 07/27/17 at 11:48 ; Status DC Mirtazapine (Remeron) 7.5 mg QHS PO ; Start 07/24/17 at 21:00; Stop 07/26/17 at 18:24; Status DC Trazodone HCl (Desyrel) 50 mg QHS PO Last administered on 07/26/17at 23:37; Start 07/25/17 at 21:00 Trazodone HCl (Desyrel) 50 mg PRN QHS PRN PO insomnia ; Start 07/25/17 at 19:15 Mirtazapine (Remeron) 15 mg QHS PO Last administered on 2/14/18at 23:39; Start 07/26/17 at 21:00; Stop 07/27/17 at 11:48; Status DC Risperidone (RisperDAL) 0.25 mg DAILY SL Last administered on 07/27/17at 11:13; Start 07/27/17 at 09:00 Divalproex Sodium (Depakote Sprinkles) 250 mg TID@0900,1700,2100 PO ; Start at 17:00 Amitriptyline HCl (Elavil) 25 mg QHS PO ; Start 07/27/17 at 21:00 Olanzapine (ZyPREXA ZYDIS) 5 mg 1X ONCE PO ; Start 07/27/17 at 19:00; Stop at 19:01; Status DC Olanzapine (ZyPREXA ZYDIS) 5 mg 1X ONCE PO ; Start 07/27/17 at 19:00; Stop at 19:01; Status DC Active Scripts Active Reported Senna Plus Tablet (Sennosides/Docusate Sodium) 1 Each Tablet 1 Tab PO PRN QHS PRN Nitrostat (Nitroglycerin) 0.3 Mg Tab.subl 0.3 Mg SL PRN Q5MIN PRN MDD 3 doses in 15 minutes Alprazolam 0.25 Mg Tablet 0.25 Mg PO PRN QHS PRN Spironolactone 25 Mg Tablet 25 Mg PO DAILY EXELON 4.6mg/24hr (Rivastigmine) 1 Each Patch.td24 1 Patch TD DAILY Nortriptyline Hcl 10 Mg Capsule 10 Mg PO QHS Lisinopril 2.5 Mg Tablet 2.5 Mg PO DAILY Eliquis (Apixaban) 2.5 Mg Tablet 2.5 Mg PO BID Depakote Sprinkle (Divalproex Sodium) 125 Mg Cap.sprink 125 Mg PO BID Coreg (Carvedilol) 25 Mg Tablet 25 Mg PO BIDWMEALS I have reviewed the current psychotropics carefully including drug interactions. Risk benefit ratio favors no change other than as noted in my dictated progress note. 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
[2017-07-27] MEDS: traZODone 50 MG TABLET. PO SCH (21:09)
[2017-07-27] MEDS: AMITRIPTYLINE HCL 25 MG TABLET PO SCH (21:09)
[2017-07-28] MEDS: APIXABAN 2.5 MG TABLET PO SCH ×2 (07:52→21:00)
[2017-07-28] MEDS: DIVALPROEX 125 MG CAP.SPRINK PO SCH ×4 (07:52→21:00)
[2017-07-28] MEDS: CARVEDILOL 12.5 MG TABLET PO SCH ×3 (08:00→17:04)
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
[2017-07-28 10:55] VITALS: BP 118/62
[2017-07-28] MEDS: LISINOPRIL 2.5 MG TABLET PO SCH (10:57)
[2017-07-28] MEDS: SPIRONOLACTONE 25 MG TABLET PO SCH (10:58)
[2017-07-28] MEDS: risperiDONE ORAL 1 MG/ML 30ml BOTTLE. SL SCH (11:03)
[2017-07-28 16:15] VITALS: BP 114/68
--- NOTE | 2017-07-28 20:02 | PDOC ---
Exam Note: Michi Note: Please also refer to the separate dictated note~for this date of service dictated separately.~Patient seen individually. Discussed the patient with Nursing staff reviewed the chart.~Reviewed interim history and current functioning. Reviewed vital signs,~Labs/ Radiology~and current medications noted below. Continue current treatment with the changes noted in the dictated addendum note Assessment: Vital Signs: Vital Signs Date Time Temp Pulse Resp B/P (MAP) Pulse Ox O2 Delivery O2 Flow Rate FiO2 07/28/17 16:15 97.6 75 18 114/68 (83) 98 07/28/17 10:55 Room Air I&O Intake and Output 07/28/17 07:00 Intake Total 840 ml Balance 840 ml Intake Oral 840 ml # Voids 1 Current Medications: Meds: Current Medications Alprazolam (Xanax) 0.25 mg PRN QHS PRN PO ANXIETY / AGITATION Last administered on 07/27/17at 14:55; Start 07/24/17 at 02:30 Divalproex Sodium (Depakote Sprinkles) 125 mg BID PO Last administered on at 10:54; Start 07/24/17 at 02:30; Stop 07/24/17 at 19:23; Status DC Nortriptyline HCl (Pamelor) 10 mg QHS PO Last administered on 07/24/17at 02:31; Start 07/24/17 at 02:30; Stop 07/24/17 at 19:23; Status DC Rivastigmine (Exelon) 1 patch DAILY TD Last administered on 07/26/17at 14:10; Start 07/24/17 at 09:00; Stop 07/26/17 at 18:24; Status DC Apixaban (Eliquis) 2.5 mg BID PO Last administered on 07/28/17at 07:52; Start at 09:00 Lisinopril (Prinivil) 2.5 mg DAILY PO Last administered on 07/28/17at 10:57; Start 07/24/17 at 09:00 Senna/Docusate Sodium (Senna Plus) 1 tab PRN QHS PRN PO CONSTIPATION; Start 05/29 at 08:15 Spironolactone (Aldactone) 25 mg DAILY PO Last administered on 07/28/17at 10:58 ; Start 07/24/17 at 09:00 Carvedilol (Coreg) 25 mg BIDWMEALS PO Last administered on 07/25/17at 16:39; Start 07/24/17 at 08:00 Nitroglycerin (Nitrostat) 0.4 mg PRN Q5MIN PRN SL CHEST PAIN; Start 07/24/17 at 08:15 Divalproex Sodium (Depakote Sprinkles) 125 mg TID@0900,1700,2100 PO Last administered on 07/27/17at 08:00; Start 07/24/17 at 21:00; Stop 07/27/17 at 11:48 ; Status DC Mirtazapine (Remeron) 7.5 mg QHS PO ; Start 07/24/17 at 21:00; Stop 07/26/17 at 18:24; Status DC Trazodone HCl (Desyrel) 50 mg QHS PO Last administered on 07/27/17at 21:09; Start 07/25/17 at 21:00 Trazodone HCl (Desyrel) 50 mg PRN QHS PRN PO insomnia ; Start 07/25/17 at 19:15 Mirtazapine (Remeron) 15 mg QHS PO Last administered on 07/26/17at 23:39; Start 07/26/17 at 21:00; Stop 07/27/17 at 11:48; Status DC Risperidone (RisperDAL) 0.25 mg DAILY SL Last administered on 07/28/17at 11:03; Start 07/27/17 at 09:00 Divalproex Sodium (Depakote Sprinkles) 250 mg TID@0900,1700,2100 PO Last administered on 07/28/17at 07:52; Start 07/27/17 at 17:00 Amitriptyline HCl (Elavil) 25 mg QHS PO Last administered on 07/27/17at 21:09; Start 07/27/17 at 21:00 Olanzapine (ZyPREXA ZYDIS) 5 mg 1X ONCE PO ; Start 07/27/17 at 19:00; Stop at 23:17; Status DC Olanzapine (ZyPREXA ZYDIS) 5 mg 1X ONCE PO ; Start 07/27/17 at 19:00; Stop at 23:17; Status DC Olanzapine (ZyPREXA ZYDIS) 5 mg 1X ONCE PO Last administered on 07/28/17at 08: 46; Start 07/28/17 at 08:00; Stop 07/28/17 at 08:01; Status DC Olanzapine (ZyPREXA ZYDIS) 5 mg 1X ONCE PO Last administered on 07/28/17at 09: 00; Start 07/28/17 at 09:00; Stop 07/28/17 at 09:01; Status DC Active Scripts Active Reported Senna Plus Tablet (Sennosides/Docusate Sodium) 1 Each Tablet 1 Tab PO PRN QHS PRN Nitrostat (Nitroglycerin) 0.3 Mg Tab.subl 0.3 Mg SL PRN Q5MIN PRN MDD 3 doses in 15 minutes Alprazolam 0.25 Mg Tablet 0.25 Mg PO PRN QHS PRN Spironolactone 25 Mg Tablet 25 Mg PO DAILY EXELON 4.6mg/24hr (Rivastigmine) 1 Each Patch.td24 1 Patch TD DAILY Nortriptyline Hcl 10 Mg Capsule 10 Mg PO QHS Lisinopril 2.5 Mg Tablet 2.5 Mg PO DAILY Eliquis (Apixaban) 2.5 Mg Tablet 2.5 Mg PO BID Depakote Sprinkle (Divalproex Sodium) 125 Mg Cap.sprink 125 Mg PO BID Coreg (Carvedilol) 25 Mg Tablet 25 Mg PO BIDWMEALS I have reviewed the current psychotropics carefully including drug interactions. Risk benefit ratio favors no change other than as noted in my dictated progress note. 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
[2017-07-28] MEDS: AMITRIPTYLINE HCL 25 MG TABLET PO SCH (21:00)
[2017-07-28] MEDS: traZODone 50 MG TABLET. PO SCH (21:00)
[2017-07-29 06:53] VITALS: BP 101/53
[2017-07-29] MEDS: LISINOPRIL 2.5 MG TABLET PO SCH (07:55)
[2017-07-29] MEDS: APIXABAN 2.5 MG TABLET PO SCH ×3 (07:55→21:00)
[2017-07-29] MEDS: CARVEDILOL 12.5 MG TABLET PO SCH ×2 (07:55→17:00)
[2017-07-29] MEDS: SPIRONOLACTONE 25 MG TABLET PO SCH (07:56)
[2017-07-29] MEDS: DIVALPROEX 125 MG CAP.SPRINK PO SCH ×4 (07:56→21:00)
[2017-07-29] MEDS: risperiDONE ORAL 1 MG/ML 30ml BOTTLE. SL SCH (07:57)
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
[2017-07-29 18:11] VITALS: BP 119/64
[2017-07-29] MEDS: AMITRIPTYLINE HCL 25 MG TABLET PO SCH ×2 (20:12→21:00)
[2017-07-29] MEDS: traZODone 50 MG TABLET. PO SCH ×2 (20:12→21:00)
--- NOTE | 2017-07-29 22:36 | PDOC ---
Exam Note: Michi Note: Please also refer to the separate dictated note~for this date of service dictated separately.~Patient seen individually. Discussed the patient with Nursing staff reviewed the chart.~Reviewed interim history and current functioning. Reviewed vital signs,~Labs/ Radiology~and current medications noted below. Continue current treatment with the changes noted in the dictated addendum note Assessment: Vital Signs: Vital Signs Date Time Temp Pulse Resp B/P (MAP) Pulse Ox O2 Delivery O2 Flow Rate FiO2 07/29/17 18:11 97.3 74 18 119/64 (82) 92 07/28/17 10:55 Room Air I&O Intake and Output 07/29/17 07:00 Intake Total 840 ml Balance 840 ml Intake Oral 840 ml # Voids 1 Current Medications: Meds: Current Medications Alprazolam (Xanax) 0.25 mg PRN QHS PRN PO ANXIETY / AGITATION Last administered on 07/27/17at 14:55; Start 07/24/17 at 02:30 Divalproex Sodium (Depakote Sprinkles) 125 mg BID PO Last administered on at 10:54; Start 07/24/17 at 02:30; Stop 07/24/17 at 19:23; Status DC Nortriptyline HCl (Pamelor) 10 mg QHS PO Last administered on 07/24/17at 02:31; Start 07/24/17 at 02:30; Stop 07/24/17 at 19:23; Status DC Rivastigmine (Exelon) 1 patch DAILY TD Last administered on 07/26/17at 14:10; Start 07/24/17 at 09:00; Stop 07/26/17 at 18:24; Status DC Apixaban (Eliquis) 2.5 mg BID PO Last administered on 07/29/17at 20:12; Start at 09:00 Lisinopril (Prinivil) 2.5 mg DAILY PO Last administered on 07/28/17at 10:57; Start 07/24/17 at 09:00 Senna/Docusate Sodium (Senna Plus) 1 tab PRN QHS PRN PO CONSTIPATION; Start 05/29 at 08:15 Spironolactone (Aldactone) 25 mg DAILY PO Last administered on 07/28/17at 10:58 ; Start 07/24/17 at 09:00 Carvedilol (Coreg) 25 mg BIDWMEALS PO Last administered on 07/25/17at 16:39; Start 07/24/17 at 08:00 Nitroglycerin (Nitrostat) 0.4 mg PRN Q5MIN PRN SL CHEST PAIN; Start 07/24/17 at 08:15 Divalproex Sodium (Depakote Sprinkles) 125 mg TID@0900,1700,2100 PO Last administered on 07/27/17at 08:00; Start 07/24/17 at 21:00; Stop 07/27/17 at 11:48 ; Status DC Mirtazapine (Remeron) 7.5 mg QHS PO ; Start 07/24/17 at 21:00; Stop 07/26/17 at 18:24; Status DC Trazodone HCl (Desyrel) 50 mg QHS PO Last administered on 07/29/17at 20:12; Start 07/25/17 at 21:00 Trazodone HCl (Desyrel) 50 mg PRN QHS PRN PO insomnia ; Start 07/25/17 at 19:15 Mirtazapine (Remeron) 15 mg QHS PO Last administered on 07/26/17at 23:39; Start 07/26/17 at 21:00; Stop 07/27/17 at 11:48; Status DC Risperidone (RisperDAL) 0.25 mg DAILY SL Last administered on 07/29/17at 07:57; Start 07/27/17 at 09:00 Divalproex Sodium (Depakote Sprinkles) 250 mg TID@0900,1700,2100 PO Last administered on 07/29/17at 20:21; Start 07/27/17 at 17:00 Amitriptyline HCl (Elavil) 25 mg QHS PO Last administered on 07/29/17at 20:12; Start 07/27/17 at 21:00 Olanzapine (ZyPREXA ZYDIS) 5 mg 1X ONCE PO ; Start 07/27/17 at 19:00; Stop at 23:17; Status DC Olanzapine (ZyPREXA ZYDIS) 5 mg 1X ONCE PO ; Start 07/27/17 at 19:00; Stop at 23:17; Status DC Olanzapine (ZyPREXA ZYDIS) 5 mg 1X ONCE PO Last administered on 07/28/17at 08: 46; Start 07/28/17 at 08:00; Stop 07/28/17 at 08:01; Status DC Olanzapine (ZyPREXA ZYDIS) 5 mg 1X ONCE PO Last administered on 07/28/17at 09: 00; Start 07/28/17 at 09:00; Stop 07/28/17 at 09:01; Status DC Active Scripts Active Reported Senna Plus Tablet (Sennosides/Docusate Sodium) 1 Each Tablet 1 Tab PO PRN QHS PRN Nitrostat (Nitroglycerin) 0.3 Mg Tab.subl 0.3 Mg SL PRN Q5MIN PRN MDD 3 doses in 15 minutes Alprazolam 0.25 Mg Tablet 0.25 Mg PO PRN QHS PRN Spironolactone 25 Mg Tablet 25 Mg PO DAILY EXELON 4.6mg/24hr (Rivastigmine) 1 Each Patch.td24 1 Patch TD DAILY Nortriptyline Hcl 10 Mg Capsule 10 Mg PO QHS Lisinopril 2.5 Mg Tablet 2.5 Mg PO DAILY Eliquis (Apixaban) 2.5 Mg Tablet 2.5 Mg PO BID Depakote Sprinkle (Divalproex Sodium) 125 Mg Cap.sprink 125 Mg PO BID Coreg (Carvedilol) 25 Mg Tablet 25 Mg PO BIDWMEALS I have reviewed the current psychotropics carefully including drug interactions. Risk benefit ratio favors no change other than as noted in my dictated progress note. 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
[2017-07-30] MEDS: AMITRIPTYLINE HCL 25 MG TABLET PO SCH ×3 (00:26→21:00)
[2017-07-30] MEDS: traZODone 50 MG TABLET. PO SCH ×2 (00:27→19:59)
[2017-07-30] MEDS: DIVALPROEX 125 MG CAP.SPRINK PO SCH ×4 (00:27→19:59)
[2017-07-30] MEDS: ALPRAZolam 0.25 MG TABLET PO PRN (02:01)
[2017-07-30 06:46] VITALS: BP 120/64
[2017-07-30] MEDS: APIXABAN 2.5 MG TABLET PO SCH ×3 (08:02→21:00)
[2017-07-30] MEDS: LISINOPRIL 2.5 MG TABLET PO SCH (08:02)
[2017-07-30] MEDS: SPIRONOLACTONE 25 MG TABLET PO SCH (08:02)
[2017-07-30] MEDS: CARVEDILOL 12.5 MG TABLET PO SCH ×2 (08:03→16:39)
[2017-07-30] MEDS: risperiDONE ORAL 1 MG/ML 30ml BOTTLE. SL SCH (08:04)
[2017-07-30 09:59] LABS: BASO # 0.1 x10^3/uL (0.0-0.2); BASO % 1 % (0-3); EOS # 0.7 x10^3/uL (0.0-0.7); EOS % 11 % (0-3); HEMATOCRIT 42.4 % (39.0-53.0); HEMOGLOBIN 14.4 g/dL (13.0-17.5); LYMPH # 2.1 x10^3/uL (1.0-4.8); LYMPH % 33 % (24-48); MEAN CORPUSCULAR HEMOGLOBIN 33 pg (25-35); MEAN CORPUSCULAR HGB CONC 34 g/dL (31-37); MEAN CORPUSCULAR VOLUME 98 fL (79-100); MONO # 0.8 x10^3/uL (0.0-1.1); MONO % 13 % (0-9); NEUT # 2.8 x10^3uL (1.8-7.7); NEUT % 43 % (31-73); PLATELET COUNT 220 x10^3/uL (140-400); RED BLOOD COUNT 4.33 x10^6/uL (4.30-5.70); RED CELL DISTRIBUTION WIDTH 14.4 % (11.5-14.5); WHITE BLOOD COUNT 6.6 x10^3/uL (4.0-11.0)
[2017-07-30 10:20] LABS: ALBUMIN 3.2 g/dL (3.4-5.0); ALBUMIN/GLOBULIN RATIO 0.7 (1.0-1.7); ALK PHOS 61 U/L (46-116); ALT (SGPT) 14 U/L (16-63); ANION GAP 9 (6-14); AST (SGOT) 32 U/L (15-37); BLOOD UREA NITROGEN 23 mg/dL (8-26); BUN/CREATININE RATIO 18 (6-20); CALCIUM 9.4 mg/dL (8.5-10.1); CARBON DIOXIDE 29 mmol/L (21-32); CHLORIDE 101 mmol/L (98-107); CREATININE 1.3 mg/dL (0.7-1.3); GFR 52.1; GLUCOSE 125 mg/dL (70-99); POTASSIUM 3.6 mmol/L (3.5-5.1); SODIUM 139 mmol/L (136-145); TOTAL BILIRUBIN 0.6 mg/dL (0.2-1.0); TOTAL PROTEIN 7.9 g/dL (6.4-8.2); VAL ACID 41 mcg/mL (50-100)
[2017-07-30 11:22] LABS: % BANDS 0 % (0-9); % BASOS 2 % (0-3); % EOS 11 % (0-5); % LYMPHS 38 % (24-48); % MONOS 9 % (0-10); % SEGS 40 % (35-66); PLT ESTIMATE ADEQUATE (ADEQUATE)
--- NOTE | 2017-07-30 20:17 | PDOC ---
Exam Note: Michi Note: Please also refer to the separate dictated note~for this date of service dictated separately.~Patient seen individually. Discussed the patient with Nursing staff reviewed the chart.~Reviewed interim history and current functioning. Reviewed vital signs,~Labs/ Radiology~and current medications noted below. Continue current treatment with the changes noted in the dictated addendum note Assessment: Vital Signs: Vital Signs Date Time Temp Pulse Resp B/P (MAP) Pulse Ox O2 Delivery O2 Flow Rate FiO2 07/30/17 16:39 77 120/64 07/30/17 06:46 98.2 16 100 07/28/17 10:55 Room Air I&O Intake and Output 07/30/17 07:00 Intake Total 480 ml Balance 480 ml Intake Oral 480 ml # Voids 1 Labs: Laboratory Tests Test 07/30/17 09:15 White Blood Count 6.6 x10^3/uL (4.0-11.0) Red Blood Count 4.33 x10^6/uL (4.30-5.70) Hemoglobin 14.4 g/dL (13.0-17.5) Hematocrit 42.4 % (39.0-53.0) Mean Corpuscular Volume 98 fL (79-100) Mean Corpuscular Hemoglobin 33 pg (25-35) Mean Corpuscular Hemoglobin Concent 34 g/dL (31-37) Red Cell Distribution Width 14.4 % (11.5-14.5) Platelet Count 220 x10^3/uL (140-400) Neutrophils (%) (Auto) 43 % (31-73) Lymphocytes (%) (Auto) 33 % (24-48) Monocytes (%) (Auto) 13 % (0-9) H Eosinophils (%) (Auto) 11 % (0-3) H Basophils (%) (Auto) 1 % (0-3) Neutrophils # (Auto) 2.8 x10^3uL (1.8-7.7) Lymphocytes # (Auto) 2.1 x10^3/uL (1.0-4.8) Monocytes # (Auto) 0.8 x10^3/uL (0.0-1.1) Eosinophils # (Auto) 0.7 x10^3/uL (0.0-0.7) Basophils # (Auto) 0.1 x10^3/uL (0.0-0.2) Segmented Neutrophils % 40 % (35-66) Band Neutrophils % 0 % (0-9) Lymphocytes % 38 % (24-48) Monocytes % 9 % (0-10) Eosinophils % 11 % (0-5) H Basophils % 2 % (0-3) Platelet Estimate Adequate (ADEQUATE) Large Platelets Present Sodium Level 139 mmol/L (136-145) Potassium Level 3.6 mmol/L (3.5-5.1) Chloride Level 101 mmol/L (98-107) Carbon Dioxide Level 29 mmol/L (21-32) Anion Gap 9 (6-14) Blood Urea Nitrogen 23 mg/dL (8-26) Creatinine 1.3 mg/dL (0.7-1.3) Estimated GFR (Cockcroft-Gault) 52.1 BUN/Creatinine Ratio 18 (6-20) Glucose Level 125 mg/dL (70-99) H Calcium Level 9.4 mg/dL (8.5-10.1) Total Bilirubin 0.6 mg/dL (0.2-1.0) Aspartate Amino Transferase (AST) 32 U/L (15-37) Alanine Aminotransferase (ALT) 14 U/L (16-63) L Alkaline Phosphatase 61 U/L (46-116) Total Protein 7.9 g/dL (6.4-8.2) Albumin 3.2 g/dL (3.4-5.0) L Albumin/Globulin Ratio 0.7 (1.0-1.7) L Valproic Acid Level 41 mcg/mL (50-100) L Valproic Acid Last Dose Date 07/29/17 Valproic Acid Last Dose Time 2100 Current Medications: Meds: Current Medications Alprazolam (Xanax) 0.25 mg PRN QHS PRN PO ANXIETY / AGITATION Last administered on 07/30/17 02:01; Start 07/24/17 at 02:30 Divalproex Sodium (Depakote Sprinkles) 125 mg BID PO Last administered on at 10:54; Start 07/24/17 at 02:30; Stop 07/24/17 at 19:23; Status DC Nortriptyline HCl (Pamelor) 10 mg QHS PO Last administered on 07/24/17at 02:31; Start 07/24/17 at 02:30; Stop 07/24/17 at 19:23; Status DC Rivastigmine (Exelon) 1 patch DAILY TD Last administered on 07/26/17at 14:10; Start 07/24/17 at 09:00; Stop 07/26/17 at 18:24; Status DC Apixaban (Eliquis) 2.5 mg BID PO Last administered on 07/30/17at 19:59; Start at 09:00 Lisinopril (Prinivil) 2.5 mg DAILY PO Last administered on 07/30/17at 08:02; Start 07/24/17 at 09:00 Senna/Docusate Sodium (Senna Plus) 1 tab PRN QHS PRN PO CONSTIPATION; Start 05/29 at 08:15 Spironolactone (Aldactone) 25 mg DAILY PO Last administered on 07/30/17at 08:02 ; Start 07/24/17 at 09:00 Carvedilol (Coreg) 25 mg BIDWMEALS PO Last administered on 07/30/17at 16:39; Start 07/24/17 at 08:00 Nitroglycerin (Nitrostat) 0.4 mg PRN Q5MIN PRN SL CHEST PAIN; Start 07/24/17 at 08:15 Divalproex Sodium (Depakote Sprinkles) 125 mg TID@0900,1700,2100 PO Last administered on 07/27/17at 08:00; Start 07/24/17 at 21:00; Stop 07/27/17 at 11:48 ; Status DC Mirtazapine (Remeron) 7.5 mg QHS PO ; Start 07/24/17 at 21:00; Stop 07/26/17 at 18:24; Status DC Trazodone HCl (Desyrel) 50 mg QHS PO Last administered on 07/30/17at 19:59; Start 07/25/17 at 21:00 Trazodone HCl (Desyrel) 50 mg PRN QHS PRN PO insomnia ; Start 07/25/17 at 19:15 Mirtazapine (Remeron) 15 mg QHS PO Last administered on 07/26/17at 23:39; Start 07/26/17 at 21:00; Stop 07/27/17 at 11:48; Status DC Risperidone (RisperDAL) 0.25 mg DAILY SL Last administered on 07/30/17at 08:04; Start 07/27/17 at 09:00 Divalproex Sodium (Depakote Sprinkles) 250 mg TID@0900,1700,2100 PO Last administered on 07/30/17at 19:59; Start 07/27/17 at 17:00 Amitriptyline HCl (Elavil) 25 mg QHS PO Last administered on 07/30/17at 19:59; Start 07/27/17 at 21:00 Olanzapine (ZyPREXA ZYDIS) 5 mg 1X ONCE PO ; Start 07/27/17 at 19:00; Stop at 23:17; Status DC Olanzapine (ZyPREXA ZYDIS) 5 mg 1X ONCE PO ; Start 07/27/17 at 19:00; Stop at 23:17; Status DC Olanzapine (ZyPREXA ZYDIS) 5 mg 1X ONCE PO Last administered on 07/28/17at 08: 46; Start 07/28/17 at 08:00; Stop 07/28/17 at 08:01; Status DC Olanzapine (ZyPREXA ZYDIS) 5 mg 1X ONCE PO Last administered on 07/28/17at 09: 00; Start 07/28/17 at 09:00; Stop 07/28/17 at 09:01; Status DC Active Scripts Active Reported Senna Plus Tablet (Sennosides/Docusate Sodium) 1 Each Tablet 1 Tab PO PRN QHS PRN Nitrostat (Nitroglycerin) 0.3 Mg Tab.subl 0.3 Mg SL PRN Q5MIN PRN MDD 3 doses in 15 minutes Alprazolam 0.25 Mg Tablet 0.25 Mg PO PRN QHS PRN Spironolactone 25 Mg Tablet 25 Mg PO DAILY EXELON 4.6mg/24hr (Rivastigmine) 1 Each Patch.td24 1 Patch TD DAILY Nortriptyline Hcl 10 Mg Capsule 10 Mg PO QHS Lisinopril 2.5 Mg Tablet 2.5 Mg PO DAILY Eliquis (Apixaban) 2.5 Mg Tablet 2.5 Mg PO BID Depakote Sprinkle (Divalproex Sodium) 125 Mg Cap.sprink 125 Mg PO BID Coreg (Carvedilol) 25 Mg Tablet 25 Mg PO BIDWMEALS I have reviewed the current psychotropics carefully including drug interactions. Risk benefit ratio favors no change other than as noted in my dictated progress note. 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
--- NOTE | 2017-07-30 22:34 | PN ---
DATE: 07/28/2017 This is a late entry 07/28/2017, covers the elements not covered in my initial note of 07/28/2017. SUBJECTIVE: I met with the patient in the evening of 07/28/2017. The patient slept 9-1/4 hours previous evening, remains quite disorganized, previous night he was calling people "baby killers." He was labile, very exit seeking, checking people's closets because he felt there were weapons hidden there. REVIEW OF SYSTEMS: No CV, , pulmonary, eye, ENT system symptoms on review. Reliability poor. MENTAL STATUS EXAM: Oriented to himself. Insight, judgment, recent and remote memory, attention, concentration, fund of knowledge poor, consistent with his diagnosis. IMPRESSION: Major neurocognitive disorder, possibly traumatic, status post intracranial hemorrhage with Alzheimer's, vascular with delusion, depression, behavioral disturbance. Rest unchanged. PLAN: Continue current psychotropics. We will go ahead and change Remeron to amitriptyline due to this seems to be helping his insomnia, start Risperdal on 07/30/2017. Attempts to do repeat CT head on 07/28/2017 failed and we will give Zyprexa 5 mg x 1 to help have this completed. Continue rest unchanged. LUIS CARLOS GALVEZ MD DR: MITCHELL/julio c JOB#: [id number] / [id number]
--- NOTE | 2017-07-30 23:16 | PN ---
DATE: 07/29/2017 This late entry 07/29/2017 covers elements not covered in my initial note 07/29/2017. Met with the patient in the evening of 07/29/2017. Overall, the patient remains confused, somewhat delusional. Seems to like sweets and we give him his meds and his vanilla ice cream. Slept [address] head shows frontal lobe damage bilaterally, which may well reflect some of the symptoms he is experiencing. REVIEW OF SYSTEMS: No CV, , pulmonary, eye, ENT system symptoms on review. Reliability poor. MENTAL STATUS EXAM: Oriented to himself. Insight, judgment, recent and remote memory, attention, concentration, fund of knowledge poor, consistent with his diagnosis mentioned in my initial note. IMPRESSION: Major neurocognitive disorder, possibly frontotemporal consequent to trauma, vascular with delusion, depression, behavioral disturbance. Rest unchanged. PLAN: Continue current psychotropics. Check labs on the Depakote on 07/30/2017. Adjust to reach a therapeutic level. Maintain Risperdal, trazodone, amitriptyline 25 mg at bedtime, and even with this, he slept just 3 hours previous evening. MAN Yamel GALVEZ MD DR: MITCHELL/julio c JOB#: [id number] / [id number]
[2017-07-31 06:18] VITALS: BP 105/64
[2017-07-31] MEDS: SPIRONOLACTONE 25 MG TABLET PO SCH (10:01)
[2017-07-31] MEDS: DIVALPROEX 125 MG CAP.SPRINK PO SCH ×3 (10:01→19:52)
[2017-07-31] MEDS: APIXABAN 2.5 MG TABLET PO SCH ×2 (10:01→19:52)
[2017-07-31] MEDS: CARVEDILOL 12.5 MG TABLET PO SCH ×2 (10:01→17:39)
[2017-07-31] MEDS: LISINOPRIL 2.5 MG TABLET PO SCH (10:01)
[2017-07-31] MEDS: risperiDONE ORAL 1 MG/ML 30ml BOTTLE. SL SCH (10:04)
[2017-07-31 16:05] VITALS: BP 107/69
[2017-07-31] MEDS: AMITRIPTYLINE HCL 25 MG TABLET PO SCH (19:52)
[2017-07-31] MEDS: traZODone 50 MG TABLET. PO SCH (19:53)
--- NOTE | 2017-07-31 20:05 | PDOC ---
Exam Note: Michi Note: Please also refer to the separate dictated note~for this date of service dictated separately.~Patient seen individually. Discussed the patient with Nursing staff reviewed the chart.~Reviewed interim history and current functioning. Reviewed vital signs,~Labs/ Radiology~and current medications noted below. Continue current treatment with the changes noted in the dictated addendum note Assessment: Vital Signs: Vital Signs Date Time Temp Pulse Resp B/P (MAP) Pulse Ox O2 Delivery O2 Flow Rate FiO2 07/31/17 17:39 74 107/69 07/31/17 16:05 97.6 19 95 07/28/17 10:55 Room Air I&O Intake and Output 07/31/17 07:00 Intake Total 845 ml Balance 845 ml Intake Oral 845 ml Current Medications: Meds: Current Medications Alprazolam (Xanax) 0.25 mg PRN QHS PRN PO ANXIETY / AGITATION Last administered on 07/30/17at 02:01; Start 07/24/17 at 02:30 Divalproex Sodium (Depakote Sprinkles) 125 mg BID PO Last administered on at 10:54; Start 07/24/17 at 02:30; Stop 07/24/17 at 19:23; Status DC Nortriptyline HCl (Pamelor) 10 mg QHS PO Last administered on 07/24/17at 02:31; Start 07/24/17 at 02:30; Stop 07/24/17 at 19:23; Status DC Rivastigmine (Exelon) 1 patch DAILY TD Last administered on 07/26/17at 14:10; Start 07/24/17 at 09:00; Stop 07/26/17 at 18:24; Status DC Apixaban (Eliquis) 2.5 mg BID PO Last administered on 07/31/17at 19:52; Start at 09:00 Lisinopril (Prinivil) 2.5 mg DAILY PO Last administered on 07/31/17at 10:01; Start 07/24/17 at 09:00 Senna/Docusate Sodium (Senna Plus) 1 tab PRN QHS PRN PO CONSTIPATION; Start 05/29 at 08:15 Spironolactone (Aldactone) 25 mg DAILY PO Last administered on 07/31/17at 10:01 ; Start 07/24/17 at 09:00 Carvedilol (Coreg) 25 mg BIDWMEALS PO Last administered on 07/31/17at 17:39; Start 07/24/17 at 08:00 Nitroglycerin (Nitrostat) 0.4 mg PRN Q5MIN PRN SL CHEST PAIN; Start 07/24/17 at 08:15 Divalproex Sodium (Depakote Sprinkles) 125 mg TID@0900,1700,2100 PO Last administered on 07/27/17at 08:00; Start 07/24/17 at 21:00; Stop 07/27/17 at 11:48 ; Status DC Mirtazapine (Remeron) 7.5 mg QHS PO ; Start 07/24/17 at 21:00; Stop 07/26/17 at 18:24; Status DC Trazodone HCl (Desyrel) 50 mg QHS PO Last administered on 07/31/17at 19:53; Start 07/25/17 at 21:00 Trazodone HCl (Desyrel) 50 mg PRN QHS PRN PO insomnia ; Start 07/25/17 at 19:15 Mirtazapine (Remeron) 15 mg QHS PO Last administered on 07/26/17at 23:39; Start 07/26/17 at 21:00; Stop 07/27/17 at 11:48; Status DC Risperidone (RisperDAL) 0.25 mg DAILY SL Last administered on 07/31/17at 10:04; Start 07/27/17 at 09:00 Divalproex Sodium (Depakote Sprinkles) 250 mg TID@0900,1700,2100 PO Last administered on 07/31/17at 19:52; Start 07/27/17 at 17:00 Amitriptyline HCl (Elavil) 25 mg QHS PO Last administered on 07/31/17at 19:52; Start 07/27/17 at 21:00 Olanzapine (ZyPREXA ZYDIS) 5 mg 1X ONCE PO ; Start 07/27/17 at 19:00; Stop at 23:17; Status DC Olanzapine (ZyPREXA ZYDIS) 5 mg 1X ONCE PO ; Start 07/27/17 at 19:00; Stop at 23:17; Status DC Olanzapine (ZyPREXA ZYDIS) 5 mg 1X ONCE PO Last administered on 07/28/17at 08: 46; Start 07/28/17 at 08:00; Stop 07/28/17 at 08:01; Status DC Olanzapine (ZyPREXA ZYDIS) 5 mg 1X ONCE PO Last administered on 07/28/17at 09: 00; Start 07/28/17 at 09:00; Stop 07/28/17 at 09:01; Status DC Active Scripts Active Reported Senna Plus Tablet (Sennosides/Docusate Sodium) 1 Each Tablet 1 Tab PO PRN QHS PRN Nitrostat (Nitroglycerin) 0.3 Mg Tab.subl 0.3 Mg SL PRN Q5MIN PRN MDD 3 doses in 15 minutes Alprazolam 0.25 Mg Tablet 0.25 Mg PO PRN QHS PRN Spironolactone 25 Mg Tablet 25 Mg PO DAILY EXELON 4.6mg/24hr (Rivastigmine) 1 Each Patch.td24 1 Patch TD DAILY Nortriptyline Hcl 10 Mg Capsule 10 Mg PO QHS Lisinopril 2.5 Mg Tablet 2.5 Mg PO DAILY Eliquis (Apixaban) 2.5 Mg Tablet 2.5 Mg PO BID Depakote Sprinkle (Divalproex Sodium) 125 Mg Cap.sprink 125 Mg PO BID Coreg (Carvedilol) 25 Mg Tablet 25 Mg PO BIDWMEALS I have reviewed the current psychotropics carefully including drug interactions. Risk benefit ratio favors no change other than as noted in my dictated progress note. 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
[2017-07-31] MEDS: ALPRAZolam 0.25 MG TABLET PO PRN (22:10)
[2017-07-31] MEDS: traZODone 50 MG TABLET. PO PRN (22:10)
[2017-08-01 06:18] VITALS: BP 97/51
[2017-08-01] MEDS: DIVALPROEX 125 MG CAP.SPRINK PO SCH ×3 (07:26→20:58)
[2017-08-01] MEDS: APIXABAN 2.5 MG TABLET PO SCH ×2 (07:26→20:59)
[2017-08-01 10:59] VITALS: BP 116/64
[2017-08-01] MEDS: SPIRONOLACTONE 25 MG TABLET PO SCH (11:00)
[2017-08-01] MEDS: risperiDONE ORAL 1 MG/ML 30ml BOTTLE. SL SCH (11:02)
[2017-08-01 16:43] VITALS: BP 112/62
[2017-08-01] MEDS: CARVEDILOL 6.25 MG TABLET PO SCH (17:19)
--- NOTE | 2017-08-01 20:06 | PDOC ---
Exam Note: Michi Note: Please also refer to the separate dictated note~for this date of service dictated separately.~Patient seen individually. Discussed the patient with Nursing staff reviewed the chart.~Reviewed interim history and current functioning. Reviewed vital signs,~Labs/ Radiology~and current medications noted below. Continue current treatment with the changes noted in the dictated addendum note Assessment: Vital Signs: Vital Signs Date Time Temp Pulse Resp B/P (MAP) Pulse Ox O2 Delivery O2 Flow Rate FiO2 08/01/17 17:19 75 112/62 08/01/17 16:43 98.3 20 100 08/01/17 10:59 Room Air I&O Intake and Output 08/01/17 07:00 Intake Total 725 ml Balance 725 ml Intake Oral 725 ml Current Medications: Meds: Current Medications Alprazolam (Xanax) 0.25 mg PRN QHS PRN PO ANXIETY / AGITATION Last administered on 07/31/17at 22:10; Start 07/24/17 at 02:30 Divalproex Sodium (Depakote Sprinkles) 125 mg BID PO Last administered on at 10:54; Start 07/24/17 at 02:30; Stop 07/24/17 at 19:23; Status DC Nortriptyline HCl (Pamelor) 10 mg QHS PO Last administered on 07/24/17at 02:31; Start 07/24/17 at 02:30; Stop 07/24/17 at 19:23; Status DC Rivastigmine (Exelon) 1 patch DAILY TD Last administered on 07/26/17at 14:10; Start 07/24/17 at 09:00; Stop 07/26/17 at 18:24; Status DC Apixaban (Eliquis) 2.5 mg BID PO Last administered on 08/01/17at 07:26; Start at 09:00 Lisinopril (Prinivil) 2.5 mg DAILY PO Last administered on 07/31/17at 10:01; Start 07/24/17 at 09:00; Stop 08/01/17 at 10:51; Status DC Senna/Docusate Sodium (Senna Plus) 1 tab PRN QHS PRN PO CONSTIPATION; Start 05/29 at 08:15 Spironolactone (Aldactone) 25 mg DAILY PO Last administered on 08/01/17at 11:00 ; Start 07/24/17 at 09:00 Carvedilol (Coreg) 25 mg BIDWMEALS PO Last administered on 07/31/17at 17:39; Start 07/24/17 at 08:00; Stop 08/01/17 at 10:51; Status DC Nitroglycerin (Nitrostat) 0.4 mg PRN Q5MIN PRN SL CHEST PAIN; Start 07/24/17 at 08:15 Divalproex Sodium (Depakote Sprinkles) 125 mg TID@0900,1700,2100 PO Last administered on 07/27/17at 08:00; Start 07/24/17 at 21:00; Stop 07/27/17 at 11:48 ; Status DC Mirtazapine (Remeron) 7.5 mg QHS PO ; Start 07/24/17 at 21:00; Stop 07/26/17 at 18:24; Status DC Trazodone HCl (Desyrel) 50 mg QHS PO Last administered on 07/31/17at 19:53; Start 07/25/17 at 21:00 Trazodone HCl (Desyrel) 50 mg PRN QHS PRN PO insomnia Last administered on at 22:10; Start 07/25/17 at 19:15 Mirtazapine (Remeron) 15 mg QHS PO Last administered on 07/26/17at 23:39; Start 07/26/17 at 21:00; Stop 07/27/17 at 11:48; Status DC Risperidone (RisperDAL) 0.25 mg DAILY SL Last administered on 08/01/17at 11:02; Start 07/27/17 at 09:00 Divalproex Sodium (Depakote Sprinkles) 250 mg TID@0900,1700,2100 PO Last administered on 08/01/17at 17:19; Start 07/27/17 at 17:00 Amitriptyline HCl (Elavil) 25 mg QHS PO Last administered on 07/31/17at 19:52; Start 07/27/17 at 21:00 Olanzapine (ZyPREXA ZYDIS) 5 mg 1X ONCE PO ; Start 07/27/17 at 19:00; Stop at 23:17; Status DC Olanzapine (ZyPREXA ZYDIS) 5 mg 1X ONCE PO ; Start 07/27/17 at 19:00; Stop at 23:17; Status DC Olanzapine (ZyPREXA ZYDIS) 5 mg 1X ONCE PO Last administered on 07/28/17at 08: 46; Start 07/28/17 at 08:00; Stop 07/28/17 at 08:01; Status DC Olanzapine (ZyPREXA ZYDIS) 5 mg 1X ONCE PO Last administered on 07/28/17at 09: 00; Start 07/28/17 at 09:00; Stop 07/28/17 at 09:01; Status DC Carvedilol (Coreg) 6.25 mg BIDWMEALS PO Last administered on 08/01/17at 17:19; Start 08/01/17 at 17:00 Active Scripts Active Reported Senna Plus Tablet (Sennosides/Docusate Sodium) 1 Each Tablet 1 Tab PO PRN QHS PRN Nitrostat (Nitroglycerin) 0.3 Mg Tab.subl 0.3 Mg SL PRN Q5MIN PRN MDD 3 doses in 15 minutes Alprazolam 0.25 Mg Tablet 0.25 Mg PO PRN QHS PRN Spironolactone 25 Mg Tablet 25 Mg PO DAILY EXELON 4.6mg/24hr (Rivastigmine) 1 Each Patch.td24 1 Patch TD DAILY Nortriptyline Hcl 10 Mg Capsule 10 Mg PO QHS Lisinopril 2.5 Mg Tablet 2.5 Mg PO DAILY Eliquis (Apixaban) 2.5 Mg Tablet 2.5 Mg PO BID Depakote Sprinkle (Divalproex Sodium) 125 Mg Cap.sprink 125 Mg PO BID Coreg (Carvedilol) 25 Mg Tablet 25 Mg PO BIDWMEALS I have reviewed the current psychotropics carefully including drug interactions. Risk benefit ratio favors no change other than as noted in my dictated progress note. 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
[2017-08-01] MEDS: traZODone 50 MG TABLET. PO SCH (20:58)
[2017-08-01] MEDS: AMITRIPTYLINE HCL 25 MG TABLET PO SCH (20:58)
--- NOTE | 2017-08-02 00:22 | PN ---
DATE: 07/30/2017 This is a late entry for 07/30/2017 and covers elements not covered in my initial note of 07/30/2017. I met with the patient the evening of 07/30/2017. The patient is resistive to medications and to ADLs the previous evening, he was rambling in the shower, talking about being in [place], but redirects a little better. REVIEW OF SYSTEMS: No CV, , eye, ENT or pulmonary system symptoms on review. MENTAL STATUS EXAM: Oriented to himself. Insight, judgment, recent and remote memory, attention, concentration, fund of knowledge poor, consistent with his diagnosis as mentioned in my initial note. IMPRESSION: Major neurocognitive disorder, traumatic, vascular with depression, delusion, behavioral disturbance. Rest unchanged. PLAN: Continue psychotropics as mentioned in my initial note, may need to increase Risperdal. MAN Yamel GALVEZ MD DR: MITCHELL/julio c JOB#: [id number] / [id number]
--- NOTE | 2017-08-02 00:24 | PN ---
DATE: 07/31/2017 PSYCHIATRIC PROGRESS NOTE This late entry 07/31/2017 covers elements not covered in my initial note 07/31/2017. SUBJECTIVE: Met with the patient in evening of 07/31/2017. The patient slept 6 hours previous evening, took his medications whole in the morning, then was seeking redirectable. REVIEW OF SYSTEMS: No CV, , eye, ENT, pulmonary system symptoms on review. Reliability is poor. MENTAL STATUS EXAM: Oriented to himself. Insight, judgment, recent and remote memory, attention, concentration, fund of knowledge poor, consistent with his diagnoses mentioned in my initial note. He fell on the floor as he was putting his tray into the food cart. No injuries noted. IMPRESSION: Major neurocognitive disorder, traumatic, vascular with depression, delusion, behavioral disturbance. Rest unchanged. PLAN: Continue psychotropics mentioned in my initial note. MAN Yamel GALVEZ MD DR: MITCHELL/julio c JOB#: [id number] / [id number]
[2017-08-02 05:59] VITALS: BP 136/81
[2017-08-02] MEDS: SPIRONOLACTONE 25 MG TABLET PO SCH (08:01)
[2017-08-02] MEDS: CARVEDILOL 6.25 MG TABLET PO SCH ×2 (08:02→16:45)
[2017-08-02] MEDS: APIXABAN 2.5 MG TABLET PO SCH ×2 (08:02→20:48)
[2017-08-02] MEDS: risperiDONE ORAL 1 MG/ML 30ml BOTTLE. SL SCH (08:03)
[2017-08-02] MEDS: DIVALPROEX 125 MG CAP.SPRINK PO SCH ×3 (08:03→20:48)
[2017-08-02] MEDS: ALPRAZolam 0.25 MG TABLET PO PRN (15:00)
--- NOTE | 2017-08-02 20:08 | PDOC ---
Exam Note: Michi Note: Please also refer to the separate dictated note~for this date of service dictated separately.~Patient seen individually. Discussed the patient with Nursing staff reviewed the chart.~Reviewed interim history and current functioning. Reviewed vital signs,~Labs/ Radiology~and current medications noted below. Continue current treatment with the changes noted in the dictated addendum note Assessment: Vital Signs: Vital Signs Date Time Temp Pulse Resp B/P (MAP) Pulse Ox O2 Delivery O2 Flow Rate FiO2 08/02/17 16:50 20 08/02/17 16:45 69 136/81 08/02/17 05:59 96.6 96 Room Air I&O Intake and Output 08/02/17 07:00 Intake Total 600 ml Balance 600 ml Intake Oral 600 ml # Voids 1 Current Medications: Meds: Current Medications Alprazolam (Xanax) 0.25 mg PRN QHS PRN PO ANXIETY / AGITATION Last administered on 07/31/17at 22:10; Start 07/24/17 at 02:30 Divalproex Sodium (Depakote Sprinkles) 125 mg BID PO Last administered on at 10:54; Start 07/24/17 at 02:30; Stop 07/24/17 at 19:23; Status DC Nortriptyline HCl (Pamelor) 10 mg QHS PO Last administered on 07/24/17at 02:31; Start 07/24/17 at 02:30; Stop 07/24/17 at 19:23; Status DC Rivastigmine (Exelon) 1 patch DAILY TD Last administered on 07/26/17at 14:10; Start 07/24/17 at 09:00; Stop 07/26/17 at 18:24; Status DC Apixaban (Eliquis) 2.5 mg BID PO Last administered on 08/02/17at 08:02; Start at 09:00 Lisinopril (Prinivil) 2.5 mg DAILY PO Last administered on 07/31/17at 10:01; Start 07/24/17 at 09:00; Stop 08/01/17 at 10:51; Status DC Senna/Docusate Sodium (Senna Plus) 1 tab PRN QHS PRN PO CONSTIPATION; Start 05/29 at 08:15 Spironolactone (Aldactone) 25 mg DAILY PO Last administered on 08/02/17at 08:01 ; Start 07/24/17 at 09:00 Carvedilol (Coreg) 25 mg BIDWMEALS PO Last administered on 07/31/17at 17:39; Start 07/24/17 at 08:00; Stop 08/01/17 at 10:51; Status DC Nitroglycerin (Nitrostat) 0.4 mg PRN Q5MIN PRN SL CHEST PAIN; Start 07/24/17 at 08:15 Divalproex Sodium (Depakote Sprinkles) 125 mg TID@0900,1700,2100 PO Last administered on 07/27/17at 08:00; Start 07/24/17 at 21:00; Stop 07/27/17 at 11:48 ; Status DC Mirtazapine (Remeron) 7.5 mg QHS PO ; Start 07/24/17 at 21:00; Stop 07/26/17 at 18:24; Status DC Trazodone HCl (Desyrel) 50 mg QHS PO Last administered on 08/01/17at 20:58; Start 07/25/17 at 21:00 Trazodone HCl (Desyrel) 50 mg PRN QHS PRN PO insomnia Last administered on at 22:10; Start 07/25/17 at 19:15 Mirtazapine (Remeron) 15 mg QHS PO Last administered on 07/26/17at 23:39; Start 07/26/17 at 21:00; Stop 07/27/17 at 11:48; Status DC Risperidone (RisperDAL) 0.25 mg DAILY SL Last administered on 08/02/17at 08:03; Start 07/27/17 at 09:00 Divalproex Sodium (Depakote Sprinkles) 250 mg TID@0900,1700,2100 PO Last administered on 08/02/17at 16:45; Start 07/27/17 at 17:00; Stop 08/02/17 at 18:53 ; Status DC Amitriptyline HCl (Elavil) 25 mg QHS PO Last administered on 08/01/17at 20:58; Start 07/27/17 at 21:00 Olanzapine (ZyPREXA ZYDIS) 5 mg 1X ONCE PO ; Start 07/27/17 at 19:00; Stop at 23:17; Status DC Olanzapine (ZyPREXA ZYDIS) 5 mg 1X ONCE PO ; Start 07/27/17 at 19:00; Stop at 23:17; Status DC Olanzapine (ZyPREXA ZYDIS) 5 mg 1X ONCE PO Last administered on 07/28/17at 08: 46; Start 07/28/17 at 08:00; Stop 07/28/17 at 08:01; Status DC Olanzapine (ZyPREXA ZYDIS) 5 mg 1X ONCE PO Last administered on 07/28/17at 09: 00; Start 07/28/17 at 09:00; Stop 07/28/17 at 09:01; Status DC Carvedilol (Coreg) 6.25 mg BIDWMEALS PO Last administered on 08/02/17at 16:45; Start 08/01/17 at 17:00 Divalproex Sodium (Depakote Sprinkles) 375 mg BID@0900,2100 PO ; Start 08/02/17 at 21:00 Divalproex Sodium (Depakote Sprinkles) 250 mg 1700 PO ; Start 08/03/17 at 17:00 Active Scripts Active Reported Senna Plus Tablet (Sennosides/Docusate Sodium) 1 Each Tablet 1 Tab PO PRN QHS PRN Nitrostat (Nitroglycerin) 0.3 Mg Tab.subl 0.3 Mg SL PRN Q5MIN PRN MDD 3 doses in 15 minutes Alprazolam 0.25 Mg Tablet 0.25 Mg PO PRN QHS PRN Spironolactone 25 Mg Tablet 25 Mg PO DAILY EXELON 4.6mg/24hr (Rivastigmine) 1 Each Patch.td24 1 Patch TD DAILY Nortriptyline Hcl 10 Mg Capsule 10 Mg PO QHS Lisinopril 2.5 Mg Tablet 2.5 Mg PO DAILY Eliquis (Apixaban) 2.5 Mg Tablet 2.5 Mg PO BID Depakote Sprinkle (Divalproex Sodium) 125 Mg Cap.sprink 125 Mg PO BID Coreg (Carvedilol) 25 Mg Tablet 25 Mg PO BIDWMEALS I have reviewed the current psychotropics carefully including drug interactions. Risk benefit ratio favors no change other than as noted in my dictated progress note. 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
[2017-08-02] MEDS: AMITRIPTYLINE HCL 25 MG TABLET PO SCH (20:48)
[2017-08-02] MEDS: traZODone 50 MG TABLET. PO SCH (20:48)
--- NOTE | 2017-08-02 21:51 | PN ---
DATE: 08/01/2017 PSYCHIATRIC PROGRESS NOTE This is a late entry of 08/01/2017 covers elements not covered in my initial note of 08/01/2017. HISTORY OF PRESENT ILLNESS: I met with the patient in the evening of 08/01/2017. The patient slept 4 hours previous evening, exit seeking, running naked in the hallway, making homicidal threats last evening, withdrawn during the day on 08/01/2017. REVIEW OF SYSTEMS: No CV, , pulmonary, eye, ENT system symptoms on review. Reliability poor. MENTAL STATUS EXAM: Oriented to himself. Insight, judgment, recent and remote memory, attention, concentration, fund of knowledge poor, consistent with his diagnosis mentioned in my initial note. IMPRESSION: Major neurocognitive disorder, Alzheimer, vascular with depression, delusion, behavioral disturbance. Rest unchanged. PLAN: Continue current psychotropics. Adjust further as clinically indicated. MAN Yamel GALVEZ MD DR: MITCHELL/julio c JOB#: [id number] / [id number]
[2017-08-03 06:35] VITALS: BP 109/55
[2017-08-03] MEDS: APIXABAN 2.5 MG TABLET PO SCH ×2 (09:02→20:54)
[2017-08-03] MEDS: DIVALPROEX 125 MG CAP.SPRINK PO SCH ×3 (09:02→20:55)
[2017-08-03] MEDS: SPIRONOLACTONE 25 MG TABLET PO SCH (09:02)
[2017-08-03] MEDS: CARVEDILOL 6.25 MG TABLET PO SCH ×2 (09:02→17:07)
[2017-08-03] MEDS: risperiDONE ORAL 1 MG/ML 30ml BOTTLE. SL SCH (09:03)
[2017-08-03 16:32] VITALS: BP 121/77
--- NOTE | 2017-08-03 20:01 | PDOC ---
Exam Note: Michi Note: Please also refer to the separate dictated note~for this date of service dictated separately.~Patient seen individually. Discussed the patient with Nursing staff reviewed the chart.~Reviewed interim history and current functioning. Reviewed vital signs,~Labs/ Radiology~and current medications noted below. Continue current treatment with the changes noted in the dictated addendum note Assessment: Vital Signs: Vital Signs Date Time Temp Pulse Resp B/P (MAP) Pulse Ox O2 Delivery O2 Flow Rate FiO2 08/03/17 17:07 75 121/77 08/03/17 16:32 97.0 18 97 Room Air I&O Intake and Output 08/03/17 07:00 Intake Total 1080 ml Balance 1080 ml Intake Oral 1080 ml # Voids 1 Current Medications: Meds: Current Medications Alprazolam (Xanax) 0.25 mg PRN QHS PRN PO ANXIETY / AGITATION Last administered on 07/31/17at 22:10; Start 07/24/17 at 02:30 Divalproex Sodium (Depakote Sprinkles) 125 mg BID PO Last administered on at 10:54; Start 07/24/17 at 02:30; Stop 07/24/17 at 19:23; Status DC Nortriptyline HCl (Pamelor) 10 mg QHS PO Last administered on 07/24/17at 02:31; Start 07/24/17 at 02:30; Stop 07/24/17 at 19:23; Status DC Rivastigmine (Exelon) 1 patch DAILY TD Last administered on 07/26/17at 14:10; Start 07/24/17 at 09:00; Stop 07/26/17 at 18:24; Status DC Apixaban (Eliquis) 2.5 mg BID PO Last administered on 08/03/17at 09:02; Start at 09:00 Lisinopril (Prinivil) 2.5 mg DAILY PO Last administered on 07/31/17at 10:01; Start 07/24/17 at 09:00; Stop 08/01/17 at 10:51; Status DC Senna/Docusate Sodium (Senna Plus) 1 tab PRN QHS PRN PO CONSTIPATION; Start 05/29 at 08:15 Spironolactone (Aldactone) 25 mg DAILY PO Last administered on 08/03/17at 09:02 ; Start 07/24/17 at 09:00 Carvedilol (Coreg) 25 mg BIDWMEALS PO Last administered on 07/31/17at 17:39; Start 07/24/17 at 08:00; Stop 08/01/17 at 10:51; Status DC Nitroglycerin (Nitrostat) 0.4 mg PRN Q5MIN PRN SL CHEST PAIN; Start 07/24/17 at 08:15 Divalproex Sodium (Depakote Sprinkles) 125 mg TID@0900,1700,2100 PO Last administered on 07/27/17at 08:00; Start 07/24/17 at 21:00; Stop 07/27/17 at 11:48 ; Status DC Mirtazapine (Remeron) 7.5 mg QHS PO ; Start 07/24/17 at 21:00; Stop 07/26/17 at 18:24; Status DC Trazodone HCl (Desyrel) 50 mg QHS PO Last administered on 08/02/17at 20:48; Start 07/25/17 at 21:00 Trazodone HCl (Desyrel) 50 mg PRN QHS PRN PO insomnia Last administered on at 22:10; Start 07/25/17 at 19:15 Mirtazapine (Remeron) 15 mg QHS PO Last administered on 07/26/17at 23:39; Start 07/26/17 at 21:00; Stop 07/27/17 at 11:48; Status DC Risperidone (RisperDAL) 0.25 mg DAILY SL Last administered on 08/03/17at 09:03; Start 07/27/17 at 09:00 Divalproex Sodium (Depakote Sprinkles) 250 mg TID@0900,1700,2100 PO Last administered on 08/02/17at 16:45; Start 07/27/17 at 17:00; Stop 08/02/17 at 18:53 ; Status DC Amitriptyline HCl (Elavil) 25 mg QHS PO Last administered on 08/02/17at 20:48; Start 07/27/17 at 21:00 Olanzapine (ZyPREXA ZYDIS) 5 mg 1X ONCE PO ; Start 07/27/17 at 19:00; Stop at 23:17; Status DC Olanzapine (ZyPREXA ZYDIS) 5 mg 1X ONCE PO ; Start 07/27/17 at 19:00; Stop at 23:17; Status DC Olanzapine (ZyPREXA ZYDIS) 5 mg 1X ONCE PO Last administered on 07/28/17at 08: 46; Start 07/28/17 at 08:00; Stop 07/28/17 at 08:01; Status DC Olanzapine (ZyPREXA ZYDIS) 5 mg 1X ONCE PO Last administered on 07/28/17at 09: 00; Start 07/28/17 at 09:00; Stop 07/28/17 at 09:01; Status DC Carvedilol (Coreg) 6.25 mg BIDWMEALS PO Last administered on 08/03/17at 17:07; Start 08/01/17 at 17:00 Divalproex Sodium (Depakote Sprinkles) 375 mg BID@0900,2100 PO Last administered on 08/03/17at 09:02; Start 08/02/17 at 21:00 Divalproex Sodium (Depakote Sprinkles) 250 mg 1700 PO Last administered on 08/03at 17:07; Start 08/03/17 at 17:00 Active Scripts Active Reported Senna Plus Tablet (Sennosides/Docusate Sodium) 1 Each Tablet 1 Tab PO PRN QHS PRN Nitrostat (Nitroglycerin) 0.3 Mg Tab.subl 0.3 Mg SL PRN Q5MIN PRN MDD 3 doses in 15 minutes Alprazolam 0.25 Mg Tablet 0.25 Mg PO PRN QHS PRN Spironolactone 25 Mg Tablet 25 Mg PO DAILY EXELON 4.6mg/24hr (Rivastigmine) 1 Each Patch.td24 1 Patch TD DAILY Nortriptyline Hcl 10 Mg Capsule 10 Mg PO QHS Lisinopril 2.5 Mg Tablet 2.5 Mg PO DAILY Eliquis (Apixaban) 2.5 Mg Tablet 2.5 Mg PO BID Depakote Sprinkle (Divalproex Sodium) 125 Mg Cap.sprink 125 Mg PO BID Coreg (Carvedilol) 25 Mg Tablet 25 Mg PO BIDWMEALS I have reviewed the current psychotropics carefully including drug interactions. Risk benefit ratio favors no change other than as noted in my dictated progress note. 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
[2017-08-03] MEDS: traZODone 50 MG TABLET. PO SCH (20:54)
[2017-08-03] MEDS: AMITRIPTYLINE HCL 25 MG TABLET PO SCH (20:54)
[2017-08-04 06:28] VITALS: BP 117/77
[2017-08-04] MEDS: APIXABAN 2.5 MG TABLET PO SCH ×2 (12:23→21:12)
[2017-08-04] MEDS: DIVALPROEX 125 MG CAP.SPRINK PO SCH ×3 (12:23→21:12)
[2017-08-04] MEDS: CARVEDILOL 6.25 MG TABLET PO SCH ×2 (12:23→17:25)
[2017-08-04] MEDS: SPIRONOLACTONE 25 MG TABLET PO SCH (12:23)
[2017-08-04] MEDS: risperiDONE ORAL 1 MG/ML 30ml BOTTLE. SL SCH (12:26)
[2017-08-04 16:09] VITALS: BP 98/55
--- NOTE | 2017-08-04 20:04 | PDOC ---
Exam Note: Michi Note: Please also refer to the separate dictated note~for this date of service dictated separately.~Patient seen individually. Discussed the patient with Nursing staff reviewed the chart.~Reviewed interim history and current functioning. Reviewed vital signs,~Labs/ Radiology~and current medications noted below. Continue current treatment with the changes noted in the dictated addendum note Assessment: Vital Signs: Vital Signs Date Time Temp Pulse Resp B/P (MAP) Pulse Ox O2 Delivery O2 Flow Rate FiO2 08/04/17 17:25 80 98/55 08/04/17 16:09 97.3 17 94 08/03/17 16:32 Room Air I&O Intake and Output 08/04/17 07:00 Intake Total 600 ml Balance 600 ml Intake Oral 600 ml # Voids 1 Current Medications: Meds: Current Medications Alprazolam (Xanax) 0.25 mg PRN QHS PRN PO ANXIETY / AGITATION Last administered on 07/31/17at 22:10; Start 07/24/17 at 02:30 Divalproex Sodium (Depakote Sprinkles) 125 mg BID PO Last administered on at 10:54; Start 07/24/17 at 02:30; Stop 07/24/17 at 19:23; Status DC Nortriptyline HCl (Pamelor) 10 mg QHS PO Last administered on 07/24/17at 02:31; Start 07/24/17 at 02:30; Stop 07/24/17 at 19:23; Status DC Rivastigmine (Exelon) 1 patch DAILY TD Last administered on 07/26/17at 14:10; Start 07/24/17 at 09:00; Stop 07/26/17 at 18:24; Status DC Apixaban (Eliquis) 2.5 mg BID PO Last administered on 08/04/17at 12:23; Start at 09:00 Lisinopril (Prinivil) 2.5 mg DAILY PO Last administered on 07/31/17at 10:01; Start 07/24/17 at 09:00; Stop 08/01/17 at 10:51; Status DC Senna/Docusate Sodium (Senna Plus) 1 tab PRN QHS PRN PO CONSTIPATION; Start 05/29 at 08:15 Spironolactone (Aldactone) 25 mg DAILY PO Last administered on 08/04/17at 12:23 ; Start 07/24/17 at 09:00 Carvedilol (Coreg) 25 mg BIDWMEALS PO Last administered on 07/31/17at 17:39; Start 07/24/17 at 08:00; Stop 08/01/17 at 10:51; Status DC Nitroglycerin (Nitrostat) 0.4 mg PRN Q5MIN PRN SL CHEST PAIN; Start 07/24/17 at 08:15 Divalproex Sodium (Depakote Sprinkles) 125 mg TID@0900,1700,2100 PO Last administered on 07/27/17at 08:00; Start 07/24/17 at 21:00; Stop 07/27/17 at 11:48 ; Status DC Mirtazapine (Remeron) 7.5 mg QHS PO ; Start 07/24/17 at 21:00; Stop 07/26/17 at 18:24; Status DC Trazodone HCl (Desyrel) 50 mg QHS PO Last administered on 08/03/17at 20:54; Start 07/25/17 at 21:00 Trazodone HCl (Desyrel) 50 mg PRN QHS PRN PO insomnia Last administered on at 22:10; Start 07/25/17 at 19:15 Mirtazapine (Remeron) 15 mg QHS PO Last administered on 07/26/17at 23:39; Start 07/26/17 at 21:00; Stop 07/27/17 at 11:48; Status DC Risperidone (RisperDAL) 0.25 mg DAILY SL Last administered on 08/04/17at 12:26; Start 07/27/17 at 09:00 Divalproex Sodium (Depakote Sprinkles) 250 mg TID@0900,1700,2100 PO Last administered on 08/02/17at 16:45; Start 07/27/17 at 17:00; Stop 08/02/17 at 18:53 ; Status DC Amitriptyline HCl (Elavil) 25 mg QHS PO Last administered on 08/03/17at 20:54; Start 07/27/17 at 21:00 Olanzapine (ZyPREXA ZYDIS) 5 mg 1X ONCE PO ; Start 07/27/17 at 19:00; Stop at 23:17; Status DC Olanzapine (ZyPREXA ZYDIS) 5 mg 1X ONCE PO ; Start 07/27/17 at 19:00; Stop at 23:17; Status DC Olanzapine (ZyPREXA ZYDIS) 5 mg 1X ONCE PO Last administered on 07/28/17at 08: 46; Start 07/28/17 at 08:00; Stop 07/28/17 at 08:01; Status DC Olanzapine (ZyPREXA ZYDIS) 5 mg 1X ONCE PO Last administered on 07/28/17at 09: 00; Start 07/28/17 at 09:00; Stop 07/28/17 at 09:01; Status DC Carvedilol (Coreg) 6.25 mg BIDWMEALS PO Last administered on 08/04/17at 12:23; Start 08/01/17 at 17:00 Divalproex Sodium (Depakote Sprinkles) 375 mg BID@0900,2100 PO Last administered on 08/04/17at 12:23; Start 08/02/17 at 21:00 Divalproex Sodium (Depakote Sprinkles) 250 mg 1700 PO Last administered on 08/04at 17:26; Start 08/03/17 at 17:00 Active Scripts Active Reported Senna Plus Tablet (Sennosides/Docusate Sodium) 1 Each Tablet 1 Tab PO PRN QHS PRN Nitrostat (Nitroglycerin) 0.3 Mg Tab.subl 0.3 Mg SL PRN Q5MIN PRN MDD 3 doses in 15 minutes Alprazolam 0.25 Mg Tablet 0.25 Mg PO PRN QHS PRN Spironolactone 25 Mg Tablet 25 Mg PO DAILY EXELON 4.6mg/24hr (Rivastigmine) 1 Each Patch.td24 1 Patch TD DAILY Nortriptyline Hcl 10 Mg Capsule 10 Mg PO QHS Lisinopril 2.5 Mg Tablet 2.5 Mg PO DAILY Eliquis (Apixaban) 2.5 Mg Tablet 2.5 Mg PO BID Depakote Sprinkle (Divalproex Sodium) 125 Mg Cap.sprink 125 Mg PO BID Coreg (Carvedilol) 25 Mg Tablet 25 Mg PO BIDWMEALS I have reviewed the current psychotropics carefully including drug interactions. Risk benefit ratio favors no change other than as noted in my dictated progress note. 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
[2017-08-04] MEDS: AMITRIPTYLINE HCL 25 MG TABLET PO SCH (21:12)
[2017-08-04] MEDS: traZODone 50 MG TABLET. PO SCH (21:12)
--- NOTE | 2017-08-04 22:02 | PN ---
DATE: 08/02/2017 This late entry 08/02/2017 covers elements not covered in my initial note 08/02/2017. Met with the patient in the evening of 08/02/2017. The patient slept 5-1/4 hours previous evening, cooperative in the morning, took his meds whole. Towards the evening, he was extremely agitated. [place] he is the only one protecting all the other patients on the unit, somewhat paranoid. His friends visited and he handled their departure quite well. REVIEW OF SYSTEMS: No CV, , pulmonary, eye, ENT system symptoms on review. Reliability poor. MENTAL STATUS EXAM: Oriented to himself. Insight, judgment, recent and remote memory, attention, concentration, fund of knowledge poor, consistent with his diagnosis. IMPRESSION: Major neurocognitive disorder, traumatic, vascular with delusion, depression, behavioral disturbance. Rest unchanged. PLAN: Valproic acid level subtherapeutic at 41. Depakote Sprinkles will be increased to 375 mg in the morning and night and 250 mg will continue at 1700. Check labs level in 3 days with an attempt to reach a therapeutic level. Rest unchanged. MAN Yamel GALVEZ MD DR: MITCHELL/julio c JOB#: [id number] / [id number]
--- NOTE | 2017-08-05 01:51 | PN ---
DATE: 08/03/2017 This is a late entry, 08/03/2017, covers the elements not covered in my initial note, 08/03/2017. SUBJECTIVE: The patient seen individually and staffed at treatment team meeting with the entire team morning of 08/03/2017, and the patient's daughter, Jessica Sepulveda attended. Reviewed his history, progress, medications, discharge, aftercare plans, and placement options. Appetite 75%. Slept 3-1/2 hours average 5 to 6 hours, took his medications whole the day before, more social, but in the evening gets more room intrusive, refused a.m. meds on 08/03/2017. He was exit seeking, wandering from groups, making negative comments to others. REVIEW OF SYSTEMS: No CV, , pulmonary, eye, ENT system symptoms on review. Reliability poor. MENTAL STATUS EXAM: Oriented to himself. Insight, judgment, recent and remote memory, attention, concentration, fund of knowledge poor, consistent with his diagnosis. IMPRESSION: Major neurocognitive disorder, traumatic, vascular with delusion, depression, behavioral disturbance. Rest unchanged. PLAN: Continue psychotropics as mentioned in my initial note. Adjust further as clinically indicated. We will check labs level on the Depakote, adjust to reach a therapeutic level. LUIS CARLOS GALVEZ MD DR: MITCHELL/julio c JOB#: [id number] / [id number]
[2017-08-05 07:37] LABS: BASO # 0.1 x10^3/uL (0.0-0.2); BASO % 1 % (0-3); EOS # 0.5 x10^3/uL (0.0-0.7); EOS % 8 % (0-3); HEMATOCRIT 39.6 % (39.0-53.0); HEMOGLOBIN 13.5 g/dL (13.0-17.5); LYMPH % 37 % (24-48); MEAN CORPUSCULAR HEMOGLOBIN 33 pg (25-35); MEAN CORPUSCULAR HGB CONC 34 g/dL (31-37); MEAN CORPUSCULAR VOLUME 97 fL (79-100); MONO # 0.9 x10^3/uL (0.0-1.1); MONO % 17 % (0-9); NEUT # 2.1 x10^3uL (1.8-7.7); NEUT % 38 % (31-73); PLATELET COUNT 177 x10^3/uL (140-400); RED BLOOD COUNT 4.09 x10^6/uL (4.30-5.70); WHITE BLOOD COUNT 5.6 x10^3/uL (4.0-11.0)
[2017-08-05 07:47] LABS: ALBUMIN 2.9 g/dL (3.4-5.0); ALBUMIN/GLOBULIN RATIO 0.7 (1.0-1.7); ALK PHOS 50 U/L (46-116); ALT (SGPT) 14 U/L (16-63); ANION GAP 8 (6-14); AST (SGOT) 33 U/L (15-37); BLOOD UREA NITROGEN 23 mg/dL (8-26); BUN/CREATININE RATIO 19 (6-20); CALCIUM 9.2 mg/dL (8.5-10.1); CARBON DIOXIDE 29 mmol/L (21-32); CHLORIDE 104 mmol/L (98-107); CREATININE 1.2 mg/dL (0.7-1.3); GFR 57.1; GLUCOSE 90 mg/dL (70-99); POTASSIUM 3.6 mmol/L (3.5-5.1); SODIUM 141 mmol/L (136-145); TOTAL BILIRUBIN 0.4 mg/dL (0.2-1.0); TOTAL PROTEIN 6.9 g/dL (6.4-8.2)
[2017-08-05 07:54] LABS: VAL ACID 74 mcg/mL (50-100)
[2017-08-05 08:14] LABS: % EOS 11 % (0-5); % LYMPHS 40 % (24-48); % MONOS 9 % (0-10); % SEGS 40 % (35-66); PLT ESTIMATE ADEQUATE (ADEQUATE)
[2017-08-05 08:17] LABS: POLYCHROMASIA SLIGHT; TOXIC GRANULATION SLIGHT
[2017-08-05] MEDS: DIVALPROEX 125 MG CAP.SPRINK PO SCH ×3 (09:14→20:50)
[2017-08-05] MEDS: APIXABAN 2.5 MG TABLET PO SCH ×2 (09:14→20:50)
[2017-08-05 09:19] VITALS: BP 131/72
[2017-08-05] MEDS: risperiDONE ORAL 1 MG/ML 30ml BOTTLE. SL SCH (09:20)
[2017-08-05] MEDS: CARVEDILOL 6.25 MG TABLET PO SCH ×2 (09:20→17:00)
[2017-08-05] MEDS: SPIRONOLACTONE 25 MG TABLET PO SCH (09:20)
[2017-08-05 16:16] VITALS: BP 110/59
[2017-08-05] MEDS: traZODone 50 MG TABLET. PO SCH (20:50)
[2017-08-05] MEDS: AMITRIPTYLINE HCL 25 MG TABLET PO SCH (20:50)
--- NOTE | 2017-08-05 22:05 | PDOC ---
Exam Note: Michi Note: Please also refer to the separate dictated note~for this date of service dictated separately.~Patient seen individually. Discussed the patient with Nursing staff reviewed the chart.~Reviewed interim history and current functioning. Reviewed vital signs,~Labs/ Radiology~and current medications noted below. Continue current treatment with the changes noted in the dictated addendum note Assessment: Vital Signs: Vital Signs Date Time Temp Pulse Resp B/P (MAP) Pulse Ox O2 Delivery O2 Flow Rate FiO2 08/05/17 16:16 98.4 76 18 110/59 (76) 95 08/03/17 16:32 Room Air I&O Intake and Output 08/05/17 07:00 Intake Total 600 ml Balance 600 ml Intake Oral 600 ml # Voids 1 Labs: Laboratory Tests Test 08/05/17 07:10 White Blood Count 5.6 x10^3/uL (4.0-11.0) Red Blood Count 4.09 x10^6/uL (4.30-5.70) L Hemoglobin 13.5 g/dL (13.0-17.5) Hematocrit 39.6 % (39.0-53.0) Mean Corpuscular Volume 97 fL (79-100) Mean Corpuscular Hemoglobin 33 pg (25-35) Mean Corpuscular Hemoglobin Concent 34 g/dL (31-37) Red Cell Distribution Width 14.0 % (11.5-14.5) Platelet Count 177 x10^3/uL (140-400) Neutrophils (%) (Auto) 38 % (31-73) Lymphocytes (%) (Auto) 37 % (24-48) Monocytes (%) (Auto) 17 % (0-9) H Eosinophils (%) (Auto) 8 % (0-3) H Basophils (%) (Auto) 1 % (0-3) Neutrophils # (Auto) 2.1 x10^3uL (1.8-7.7) Lymphocytes # (Auto) 2.0 x10^3/uL (1.0-4.8) Monocytes # (Auto) 0.9 x10^3/uL (0.0-1.1) Eosinophils # (Auto) 0.5 x10^3/uL (0.0-0.7) Basophils # (Auto) 0.1 x10^3/uL (0.0-0.2) Segmented Neutrophils % 40 % (35-66) Lymphocytes % 40 % (24-48) Monocytes % 9 % (0-10) Eosinophils % 11 % (0-5) H Toxic Granulation Slight Platelet Estimate Adequate (ADEQUATE) Large Platelets Occ Polychromasia Slight Sodium Level 141 mmol/L (136-145) Potassium Level 3.6 mmol/L (3.5-5.1) Chloride Level 104 mmol/L (98-107) Carbon Dioxide Level 29 mmol/L (21-32) Anion Gap 8 (6-14) Blood Urea Nitrogen 23 mg/dL (8-26) Creatinine 1.2 mg/dL (0.7-1.3) Estimated GFR (Cockcroft-Gault) 57.1 BUN/Creatinine Ratio 19 (6-20) Glucose Level 90 mg/dL (70-99) Calcium Level 9.2 mg/dL (8.5-10.1) Total Bilirubin 0.4 mg/dL (0.2-1.0) Aspartate Amino Transferase (AST) 33 U/L (15-37) Alanine Aminotransferase (ALT) 14 U/L (16-63) L Alkaline Phosphatase 50 U/L (46-116) Total Protein 6.9 g/dL (6.4-8.2) Albumin 2.9 g/dL (3.4-5.0) L Albumin/Globulin Ratio 0.7 (1.0-1.7) L Valproic Acid Level 74 mcg/mL (50-100) Valproic Acid Last Dose Date 08/04/17 Valproic Acid Last Dose Time 2100 Current Medications: Meds: Current Medications Alprazolam (Xanax) 0.25 mg PRN QHS PRN PO ANXIETY / AGITATION Last administered on 07/31/17at 22:10; Start 07/24/17 at 02:30 Divalproex Sodium (Depakote Sprinkles) 125 mg BID PO Last administered on at 10:54; Start 07/24/17 at 02:30; Stop 07/24/17 at 19:23; Status DC Nortriptyline HCl (Pamelor) 10 mg QHS PO Last administered on 07/24/17at 02:31; Start 07/24/17 at 02:30; Stop 07/24/17 at 19:23; Status DC Rivastigmine (Exelon) 1 patch DAILY TD Last administered on 07/26/17at 14:10; Start 07/24/17 at 09:00; Stop 07/26/17 at 18:24; Status DC Apixaban (Eliquis) 2.5 mg BID PO Last administered on 08/05/17at 20:50; Start at 09:00 Lisinopril (Prinivil) 2.5 mg DAILY PO Last administered on 07/31/17at 10:01; Start 07/24/17 at 09:00; Stop 08/01/17 at 10:51; Status DC Senna/Docusate Sodium (Senna Plus) 1 tab PRN QHS PRN PO CONSTIPATION; Start 05/29 at 08:15 Spironolactone (Aldactone) 25 mg DAILY PO Last administered on 08/05/17at 09:20 ; Start 07/24/17 at 09:00 Carvedilol (Coreg) 25 mg BIDWMEALS PO Last administered on 07/31/17at 17:39; Start 07/24/17 at 08:00; Stop 08/01/17 at 10:51; Status DC Nitroglycerin (Nitrostat) 0.4 mg PRN Q5MIN PRN SL CHEST PAIN; Start 07/24/17 at 08:15 Divalproex Sodium (Depakote Sprinkles) 125 mg TID@0900,1700,2100 PO Last administered on 07/27/17at 08:00; Start 07/24/17 at 21:00; Stop 07/27/17 at 11:48 ; Status DC Mirtazapine (Remeron) 7.5 mg QHS PO ; Start 07/24/17 at 21:00; Stop 07/26/17 at 18:24; Status DC Trazodone HCl (Desyrel) 50 mg QHS PO Last administered on 08/05/17at 20:50; Start 07/25/17 at 21:00 Trazodone HCl (Desyrel) 50 mg PRN QHS PRN PO insomnia Last administered on at 22:10; Start 07/25/17 at 19:15 Mirtazapine (Remeron) 15 mg QHS PO Last administered on 07/26/17at 23:39; Start 07/26/17 at 21:00; Stop 07/27/17 at 11:48; Status DC Risperidone (RisperDAL) 0.25 mg DAILY SL Last administered on 08/05/17at 09:20; Start 07/27/17 at 09:00 Divalproex Sodium (Depakote Sprinkles) 250 mg TID@0900,1700,2100 PO Last administered on 08/02/17at 16:45; Start 07/27/17 at 17:00; Stop 08/02/17 at 18:53 ; Status DC Amitriptyline HCl (Elavil) 25 mg QHS PO Last administered on 08/05/17at 20:50; Start 07/27/17 at 21:00 Olanzapine (ZyPREXA ZYDIS) 5 mg 1X ONCE PO ; Start 07/27/17 at 19:00; Stop at 23:17; Status DC Olanzapine (ZyPREXA ZYDIS) 5 mg 1X ONCE PO ; Start 07/27/17 at 19:00; Stop at 23:17; Status DC Olanzapine (ZyPREXA ZYDIS) 5 mg 1X ONCE PO Last administered on 07/28/17at 08: 46; Start 07/28/17 at 08:00; Stop 07/28/17 at 08:01; Status DC Olanzapine (ZyPREXA ZYDIS) 5 mg 1X ONCE PO Last administered on 07/28/17at 09: 00; Start 07/28/17 at 09:00; Stop 07/28/17 at 09:01; Status DC Carvedilol (Coreg) 6.25 mg BIDWMEALS PO Last administered on 08/05/17at 09:20; Start 08/01/17 at 17:00 Divalproex Sodium (Depakote Sprinkles) 375 mg BID@0900,2100 PO Last administered on 08/05/17at 20:50; Start 08/02/17 at 21:00 Divalproex Sodium (Depakote Sprinkles) 250 mg 1700 PO Last administered on 08/05at 17:28; Start 08/03/17 at 17:00 Active Scripts Active Reported Senna Plus Tablet (Sennosides/Docusate Sodium) 1 Each Tablet 1 Tab PO PRN QHS PRN Nitrostat (Nitroglycerin) 0.3 Mg Tab.subl 0.3 Mg SL PRN Q5MIN PRN MDD 3 doses in 15 minutes Alprazolam 0.25 Mg Tablet 0.25 Mg PO PRN QHS PRN Spironolactone 25 Mg Tablet 25 Mg PO DAILY EXELON 4.6mg/24hr (Rivastigmine) 1 Each Patch.td24 1 Patch TD DAILY Nortriptyline Hcl 10 Mg Capsule 10 Mg PO QHS Lisinopril 2.5 Mg Tablet 2.5 Mg PO DAILY Eliquis (Apixaban) 2.5 Mg Tablet 2.5 Mg PO BID Depakote Sprinkle (Divalproex Sodium) 125 Mg Cap.sprink 125 Mg PO BID Coreg (Carvedilol) 25 Mg Tablet 25 Mg PO BIDWMEALS I have reviewed the current psychotropics carefully including drug interactions. Risk benefit ratio favors no change other than as noted in my dictated progress note. 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
[2017-08-06] MEDS: APIXABAN 2.5 MG TABLET PO SCH ×2 (07:58→19:23)
[2017-08-06] MEDS: DIVALPROEX 125 MG CAP.SPRINK PO SCH ×4 (07:58→19:23)
[2017-08-06] MEDS: risperiDONE ORAL 1 MG/ML 30ml BOTTLE. SL SCH (07:59)
[2017-08-06] MEDS: CARVEDILOL 6.25 MG TABLET PO SCH ×2 (08:00→17:00)
[2017-08-06] MEDS: SPIRONOLACTONE 25 MG TABLET PO SCH (09:00)
--- NOTE | 2017-08-06 10:27 | PN ---
DATE: 08/04/2017 This late entry 08/04/2017 covers elements not covered in my initial note 08/04/2017. I met with the patient evening of 08/04/2017. The patient slept 4-1/2 hours previous evening, wandering the hallways at night, slept till lunch to make up for the nighttime, takes his meds hidden in ice cream otherwise resistive to it, delusional, thinks the nursing staff went to school with his daughter according to nursing report. REVIEW OF SYSTEMS: No CV, , pulmonary, eye, ENT system symptoms on review. Reliability poor. MENTAL STATUS EXAM: Oriented to himself. Insight, judgment, recent and remote memory, attention, concentration, fund of knowledge poor consistent with his diagnosis mentioned in my initial note. IMPRESSION: Major neurocognitive disorder, traumatic, vascular with delusion, depression, behavioral disturbance. It is remarkable that someone had told him my name and about 3 minutes later, he was able to remember it and addressed me by my name. He seems to have these short periods of lucidity despite his significant cognitive deficits ____ PLAN: Continue psychotropics mentioned in my initial note including Depakote, labs level are awaited on 08/05/2017. MAN Yamel GALVEZ MD DR: MITCHELL/julio c JOB#: [id number] / [id number]
--- NOTE | 2017-08-06 10:49 | PN ---
DATE: 08/05/2017 This late entry 08/05/2017 covers elements not covered in my initial note 08/05/2017. SUBJECTIVE: I met with the patient evening of 08/05/2017. The patient slept 4-1/4 hours previous evening, at times gets obsessed with the [place] War as was evident the night before, somewhat intrusive with the ladies. REVIEW OF SYSTEMS: No CV, , pulmonary, eye, ENT system symptoms on review. He still recognizes me as a doctor, but did not remember my name, which is understandable. MENTAL STATUS EXAM: Oriented to himself. Insight, judgment, recent and remote memory, attention, concentration, fund of knowledge poor, consistent with his diagnosis mentioned in my initial note. IMPRESSION: Major neurocognitive disorder, traumatic, vascular with depression, delusion, behavioral disturbance. PLAN: Continue current psychotropics. Valproic acid level is awaited, may adjust Depakote thereafter. Amitriptyline was increased to 50 mg at bedtime and he is sleeping a little better with this because previously he was sleeping very minimally at night. MAN Yamel GALVEZ MD DR: MITCHELL/julio c JOB#: [id number] / [id number]
[2017-08-06 16:34] VITALS: BP 116/71
[2017-08-06] MEDS: AMITRIPTYLINE HCL 25 MG TABLET PO SCH (19:23)
[2017-08-06] MEDS: traZODone 50 MG TABLET. PO SCH (19:23)
--- NOTE | 2017-08-06 19:43 | PDOC ---
Exam Note: Michi Note: Please also refer to the separate dictated note~for this date of service dictated separately.~Patient seen individually. Discussed the patient with Nursing staff reviewed the chart.~Reviewed interim history and current functioning. Reviewed vital signs,~Labs/ Radiology~and current medications noted below. Continue current treatment with the changes noted in the dictated addendum note Assessment: Vital Signs: Vital Signs Date Time Temp Pulse Resp B/P (MAP) Pulse Ox O2 Delivery O2 Flow Rate FiO2 08/06/17 16:34 97.5 75 16 116/71 (86) 99 08/03/17 16:32 Room Air I&O Intake and Output 08/06/17 07:00 Intake Total 980 ml Balance 980 ml Intake Oral 980 ml # Voids 1 # Bowel Movements 1 Current Medications: Meds: Current Medications Alprazolam (Xanax) 0.25 mg PRN QHS PRN PO ANXIETY / AGITATION Last administered on 07/31/17at 22:10; Start 07/24/17 at 02:30 Divalproex Sodium (Depakote Sprinkles) 125 mg BID PO Last administered on at 10:54; Start 07/24/17 at 02:30; Stop 07/24/17 at 19:23; Status DC Nortriptyline HCl (Pamelor) 10 mg QHS PO Last administered on 07/24/17at 02:31; Start 07/24/17 at 02:30; Stop 07/24/17 at 19:23; Status DC Rivastigmine (Exelon) 1 patch DAILY TD Last administered on 07/26/17at 14:10; Start 07/24/17 at 09:00; Stop 07/26/17 at 18:24; Status DC Apixaban (Eliquis) 2.5 mg BID PO Last administered on 08/06/17at 19:23; Start at 09:00 Lisinopril (Prinivil) 2.5 mg DAILY PO Last administered on 07/31/17at 10:01; Start 07/24/17 at 09:00; Stop 08/01/17 at 10:51; Status DC Senna/Docusate Sodium (Senna Plus) 1 tab PRN QHS PRN PO CONSTIPATION; Start 05/29 at 08:15 Spironolactone (Aldactone) 25 mg DAILY PO Last administered on 08/05/17at 09:20 ; Start 07/24/17 at 09:00 Carvedilol (Coreg) 25 mg BIDWMEALS PO Last administered on 07/31/17at 17:39; Start 07/24/17 at 08:00; Stop 08/01/17 at 10:51; Status DC Nitroglycerin (Nitrostat) 0.4 mg PRN Q5MIN PRN SL CHEST PAIN; Start 07/24/17 at 08:15 Divalproex Sodium (Depakote Sprinkles) 125 mg TID@0900,1700,2100 PO Last administered on 07/27/17at 08:00; Start 07/24/17 at 21:00; Stop 07/27/17 at 11:48 ; Status DC Mirtazapine (Remeron) 7.5 mg QHS PO ; Start 07/24/17 at 21:00; Stop 07/26/17 at 18:24; Status DC Trazodone HCl (Desyrel) 50 mg QHS PO Last administered on 08/06/17at 19:23; Start 07/25/17 at 21:00 Trazodone HCl (Desyrel) 50 mg PRN QHS PRN PO insomnia Last administered on at 22:10; Start 07/25/17 at 19:15 Mirtazapine (Remeron) 15 mg QHS PO Last administered on 07/26/17at 23:39; Start 07/26/17 at 21:00; Stop 07/27/17 at 11:48; Status DC Risperidone (RisperDAL) 0.25 mg DAILY SL Last administered on 08/06/17at 07:59; Start 07/27/17 at 09:00 Divalproex Sodium (Depakote Sprinkles) 250 mg TID@0900,1700,2100 PO Last administered on 08/02/17at 16:45; Start 07/27/17 at 17:00; Stop 08/02/17 at 18:53 ; Status DC Amitriptyline HCl (Elavil) 25 mg QHS PO Last administered on 08/06/17at 19:23; Start 07/27/17 at 21:00 Olanzapine (ZyPREXA ZYDIS) 5 mg 1X ONCE PO ; Start 07/27/17 at 19:00; Stop at 23:17; Status DC Olanzapine (ZyPREXA ZYDIS) 5 mg 1X ONCE PO ; Start 07/27/17 at 19:00; Stop at 23:17; Status DC Olanzapine (ZyPREXA ZYDIS) 5 mg 1X ONCE PO Last administered on 07/28/17at 08: 46; Start 07/28/17 at 08:00; Stop 07/28/17 at 08:01; Status DC Olanzapine (ZyPREXA ZYDIS) 5 mg 1X ONCE PO Last administered on 07/28/17at 09: 00; Start 07/28/17 at 09:00; Stop 07/28/17 at 09:01; Status DC Carvedilol (Coreg) 6.25 mg BIDWMEALS PO Last administered on 08/05/17at 09:20; Start 08/01/17 at 17:00 Divalproex Sodium (Depakote Sprinkles) 375 mg BID@0900,2100 PO Last administered on 08/06/17at 19:23; Start 08/02/17 at 21:00 Divalproex Sodium (Depakote Sprinkles) 250 mg 1700 PO Last administered on 08/05at 17:28; Start 08/03/17 at 17:00 Active Scripts Active Reported Senna Plus Tablet (Sennosides/Docusate Sodium) 1 Each Tablet 1 Tab PO PRN QHS PRN Nitrostat (Nitroglycerin) 0.3 Mg Tab.subl 0.3 Mg SL PRN Q5MIN PRN MDD 3 doses in 15 minutes Alprazolam 0.25 Mg Tablet 0.25 Mg PO PRN QHS PRN Spironolactone 25 Mg Tablet 25 Mg PO DAILY EXELON 4.6mg/24hr (Rivastigmine) 1 Each Patch.td24 1 Patch TD DAILY Nortriptyline Hcl 10 Mg Capsule 10 Mg PO QHS Lisinopril 2.5 Mg Tablet 2.5 Mg PO DAILY Eliquis (Apixaban) 2.5 Mg Tablet 2.5 Mg PO BID Depakote Sprinkle (Divalproex Sodium) 125 Mg Cap.sprink 125 Mg PO BID Coreg (Carvedilol) 25 Mg Tablet 25 Mg PO BIDWMEALS I have reviewed the current psychotropics carefully including drug interactions. Risk benefit ratio favors no change other than as noted in my dictated progress note. 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
[2017-08-07] MEDS: traZODone 50 MG TABLET. PO PRN ×2 (01:52→22:56)
[2017-08-07 07:42] VITALS: BP 120/70
[2017-08-07 08:00] VITALS: BP 121/70
[2017-08-07] MEDS: APIXABAN 2.5 MG TABLET PO SCH ×2 (08:43→20:08)
[2017-08-07] MEDS: SPIRONOLACTONE 25 MG TABLET PO SCH (08:43)
[2017-08-07] MEDS: DIVALPROEX 125 MG CAP.SPRINK PO SCH ×3 (08:43→20:09)
[2017-08-07] MEDS: CARVEDILOL 6.25 MG TABLET PO SCH ×2 (08:44→16:58)
[2017-08-07] MEDS: risperiDONE ORAL 1 MG/ML 30ml BOTTLE. SL SCH (08:45)
[2017-08-07 15:53] VITALS: BP 101/67
--- NOTE | 2017-08-07 19:03 | PDOC ---
Exam Note: Michi Note: Please also refer to the separate dictated note~for this date of service dictated separately.~Patient seen individually. Discussed the patient with Nursing staff reviewed the chart.~Reviewed interim history and current functioning. Reviewed vital signs,~Labs/ Radiology~and current medications noted below. Continue current treatment with the changes noted in the dictated addendum note Assessment: Vital Signs: Vital Signs Date Time Temp Pulse Resp B/P (MAP) Pulse Ox O2 Delivery O2 Flow Rate FiO2 08/07/17 16:58 76 101/67 08/07/17 15:53 98.7 20 97 08/07/17 07:42 Room Air I&O Intake and Output 08/07/17 07:00 Intake Total 840 ml Balance 840 ml Intake Oral 840 ml # Voids 1 Current Medications: Meds: Current Medications Alprazolam (Xanax) 0.25 mg PRN QHS PRN PO ANXIETY / AGITATION Last administered on 07/31/17at 22:10; Start 07/24/17 at 02:30 Divalproex Sodium (Depakote Sprinkles) 125 mg BID PO Last administered on at 10:54; Start 07/24/17 at 02:30; Stop 07/24/17 at 19:23; Status DC Nortriptyline HCl (Pamelor) 10 mg QHS PO Last administered on 07/24/17at 02:31; Start 07/24/17 at 02:30; Stop 07/24/17 at 19:23; Status DC Rivastigmine (Exelon) 1 patch DAILY TD Last administered on 07/26/17at 14:10; Start 07/24/17 at 09:00; Stop 07/26/17 at 18:24; Status DC Apixaban (Eliquis) 2.5 mg BID PO Last administered on 08/07/17at 08:43; Start at 09:00 Lisinopril (Prinivil) 2.5 mg DAILY PO Last administered on 07/31/17at 10:01; Start 07/24/17 at 09:00; Stop 08/01/17 at 10:51; Status DC Senna/Docusate Sodium (Senna Plus) 1 tab PRN QHS PRN PO CONSTIPATION; Start 05/29 at 08:15 Spironolactone (Aldactone) 25 mg DAILY PO Last administered on 08/07/17at 08:43 ; Start 07/24/17 at 09:00 Carvedilol (Coreg) 25 mg BIDWMEALS PO Last administered on 07/31/17at 17:39; Start 07/24/17 at 08:00; Stop 08/01/17 at 10:51; Status DC Nitroglycerin (Nitrostat) 0.4 mg PRN Q5MIN PRN SL CHEST PAIN; Start 07/24/17 at 08:15 Divalproex Sodium (Depakote Sprinkles) 125 mg TID@0900,1700,2100 PO Last administered on 07/27/17at 08:00; Start 07/24/17 at 21:00; Stop 07/27/17 at 11:48 ; Status DC Mirtazapine (Remeron) 7.5 mg QHS PO ; Start 07/24/17 at 21:00; Stop 07/26/17 at 18:24; Status DC Trazodone HCl (Desyrel) 50 mg QHS PO Last administered on 08/06/17at 19:23; Start 07/25/17 at 21:00 Trazodone HCl (Desyrel) 50 mg PRN QHS PRN PO insomnia Last administered on at 22:10; Start 07/25/17 at 19:15 Mirtazapine (Remeron) 15 mg QHS PO Last administered on 07/26/17at 23:39; Start 07/26/17 at 21:00; Stop 07/27/17 at 11:48; Status DC Risperidone (RisperDAL) 0.25 mg DAILY SL Last administered on 08/07/17at 08:45; Start 07/27/17 at 09:00 Divalproex Sodium (Depakote Sprinkles) 250 mg TID@0900,1700,2100 PO Last administered on 08/02/17at 16:45; Start 07/27/17 at 17:00; Stop 08/02/17 at 18:53 ; Status DC Amitriptyline HCl (Elavil) 25 mg QHS PO Last administered on 08/06/17at 19:23; Start 07/27/17 at 21:00 Olanzapine (ZyPREXA ZYDIS) 5 mg 1X ONCE PO ; Start 07/27/17 at 19:00; Stop at 23:17; Status DC Olanzapine (ZyPREXA ZYDIS) 5 mg 1X ONCE PO ; Start 07/27/17 at 19:00; Stop at 23:17; Status DC Olanzapine (ZyPREXA ZYDIS) 5 mg 1X ONCE PO Last administered on 07/28/17at 08: 46; Start 07/28/17 at 08:00; Stop 07/28/17 at 08:01; Status DC Olanzapine (ZyPREXA ZYDIS) 5 mg 1X ONCE PO Last administered on 07/28/17at 09: 00; Start 07/28/17 at 09:00; Stop 07/28/17 at 09:01; Status DC Carvedilol (Coreg) 6.25 mg BIDWMEALS PO Last administered on 08/07/17at 16:58; Start 08/01/17 at 17:00 Divalproex Sodium (Depakote Sprinkles) 375 mg BID@0900,2100 PO Last administered on 08/07/17at 08:43; Start 08/02/17 at 21:00 Divalproex Sodium (Depakote Sprinkles) 250 mg 1700 PO Last administered on 08/07at 16:59; Start 08/03/17 at 17:00 Active Scripts Active Reported Senna Plus Tablet (Sennosides/Docusate Sodium) 1 Each Tablet 1 Tab PO PRN QHS PRN Nitrostat (Nitroglycerin) 0.3 Mg Tab.subl 0.3 Mg SL PRN Q5MIN PRN MDD 3 doses in 15 minutes Alprazolam 0.25 Mg Tablet 0.25 Mg PO PRN QHS PRN Spironolactone 25 Mg Tablet 25 Mg PO DAILY EXELON 4.6mg/24hr (Rivastigmine) 1 Each Patch.td24 1 Patch TD DAILY Nortriptyline Hcl 10 Mg Capsule 10 Mg PO QHS Lisinopril 2.5 Mg Tablet 2.5 Mg PO DAILY Eliquis (Apixaban) 2.5 Mg Tablet 2.5 Mg PO BID Depakote Sprinkle (Divalproex Sodium) 125 Mg Cap.sprink 125 Mg PO BID Coreg (Carvedilol) 25 Mg Tablet 25 Mg PO BIDWMEALS I have reviewed the current psychotropics carefully including drug interactions. Risk benefit ratio favors no change other than as noted in my dictated progress note. 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
[2017-08-07] MEDS: traZODone 50 MG TABLET. PO SCH (20:07)
[2017-08-07] MEDS: AMITRIPTYLINE HCL 25 MG TABLET PO SCH (20:07)
[2017-08-07] MEDS: ALPRAZolam 0.25 MG TABLET PO PRN (22:56)
[2017-08-08 06:42] VITALS: BP 144/72
[2017-08-08] MEDS: APIXABAN 2.5 MG TABLET PO SCH ×2 (08:05→20:06)
[2017-08-08] MEDS: SPIRONOLACTONE 25 MG TABLET PO SCH (08:05)
[2017-08-08] MEDS: DIVALPROEX 125 MG CAP.SPRINK PO SCH ×3 (08:05→20:06)
[2017-08-08] MEDS: CARVEDILOL 6.25 MG TABLET PO SCH ×2 (08:06→16:56)
[2017-08-08] MEDS: risperiDONE ORAL 1 MG/ML 30ml BOTTLE. SL SCH (08:06)
--- NOTE | 2017-08-08 12:01 | PN ---
DATE: 08/06/2017 PSYCHIATRIC PROGRESS NOTE This late entry 08/06/2017 covers elements not covered in my initial note of 08/06/2017. SUBJECTIVE: Met with the patient evening of 08/06/2017. Previous evening, the patient was quite intrusive, wandering into others' rooms. He had a male visitor, did well during the visit, less angry obsessive about the war, less exit-seeking evening of 08/06/2017. REVIEW OF SYSTEMS: No CV, , pulmonary, eye, ENT system symptoms on review. Reliability is poor. MENTAL STATUS EXAM: Oriented to himself. Insight, judgment, recent and remote memory, attention, concentration, fund of knowledge poor, consistent with his diagnoses mentioned in my initial note. IMPRESSION: Major neurocognitive disorder, traumatic, vascular with depression, delusion, behavioral disturbance. Despite that recognizes me as a "doctor" but certainly does not remember my name on 08/06/2017. PLAN: Continue psychotropics mentioned in my initial note. He is sleeping better on the amitriptyline 50 mg at bedtime. MAN Yamel GALVEZ MD DR: MITCHELL/julio c JOB#: [id number] / [id number]
[2017-08-08 16:44] VITALS: BP 98/74
--- NOTE | 2017-08-08 19:57 | PDOC ---
Exam Note: Michi Note: Please also refer to the separate dictated note~for this date of service dictated separately.~Patient seen individually. Discussed the patient with Nursing staff reviewed the chart.~Reviewed interim history and current functioning. Reviewed vital signs,~Labs/ Radiology~and current medications noted below. Continue current treatment with the changes noted in the dictated addendum note Assessment: Vital Signs: Vital Signs Date Time Temp Pulse Resp B/P (MAP) Pulse Ox O2 Delivery O2 Flow Rate FiO2 08/08/17 16:56 75 122/75 08/08/17 16:44 98.4 16 99 08/07/17 07:42 Room Air I&O Intake and Output 08/08/17 07:00 Intake Total 580 ml Balance 580 ml Intake Oral 580 ml # Voids 2 Current Medications: Meds: Current Medications Alprazolam (Xanax) 0.25 mg PRN QHS PRN PO ANXIETY / AGITATION Last administered on 08/07/17at 22:56; Start 07/24/17 at 02:30 Divalproex Sodium (Depakote Sprinkles) 125 mg BID PO Last administered on at 10:54; Start 07/24/17 at 02:30; Stop 07/24/17 at 19:23; Status DC Nortriptyline HCl (Pamelor) 10 mg QHS PO Last administered on 07/24/17at 02:31; Start 07/24/17 at 02:30; Stop 07/24/17 at 19:23; Status DC Rivastigmine (Exelon) 1 patch DAILY TD Last administered on 07/26/17at 14:10; Start 07/24/17 at 09:00; Stop 07/26/17 at 18:24; Status DC Apixaban (Eliquis) 2.5 mg BID PO Last administered on 08/08/17at 08:05; Start at 09:00 Lisinopril (Prinivil) 2.5 mg DAILY PO Last administered on 07/31/17at 10:01; Start 07/24/17 at 09:00; Stop 08/01/17 at 10:51; Status DC Senna/Docusate Sodium (Senna Plus) 1 tab PRN QHS PRN PO CONSTIPATION; Start 05/29 at 08:15 Spironolactone (Aldactone) 25 mg DAILY PO Last administered on 08/08/17at 08:05 ; Start 07/24/17 at 09:00 Carvedilol (Coreg) 25 mg BIDWMEALS PO Last administered on 07/31/17at 17:39; Start 07/24/17 at 08:00; Stop 08/01/17 at 10:51; Status DC Nitroglycerin (Nitrostat) 0.4 mg PRN Q5MIN PRN SL CHEST PAIN; Start 07/24/17 at 08:15 Divalproex Sodium (Depakote Sprinkles) 125 mg TID@0900,1700,2100 PO Last administered on 07/27/17at 08:00; Start 07/24/17 at 21:00; Stop 07/27/17 at 11:48 ; Status DC Mirtazapine (Remeron) 7.5 mg QHS PO ; Start 07/24/17 at 21:00; Stop 07/26/17 at 18:24; Status DC Trazodone HCl (Desyrel) 50 mg QHS PO Last administered on 08/07/17at 20:07; Start 07/25/17 at 21:00 Trazodone HCl (Desyrel) 50 mg PRN QHS PRN PO insomnia Last administered on at 22:56; Start 07/25/17 at 19:15 Mirtazapine (Remeron) 15 mg QHS PO Last administered on 07/26/17at 23:39; Start 07/26/17 at 21:00; Stop 07/27/17 at 11:48; Status DC Risperidone (RisperDAL) 0.25 mg DAILY SL Last administered on 08/08/17at 08:06; Start 07/27/17 at 09:00 Divalproex Sodium (Depakote Sprinkles) 250 mg TID@0900,1700,2100 PO Last administered on 08/02/17at 16:45; Start 07/27/17 at 17:00; Stop 08/02/17 at 18:53 ; Status DC Amitriptyline HCl (Elavil) 25 mg QHS PO Last administered on 08/07/17at 20:07; Start 07/27/17 at 21:00 Olanzapine (ZyPREXA ZYDIS) 5 mg 1X ONCE PO ; Start 07/27/17 at 19:00; Stop at 23:17; Status DC Olanzapine (ZyPREXA ZYDIS) 5 mg 1X ONCE PO ; Start 07/27/17 at 19:00; Stop at 23:17; Status DC Olanzapine (ZyPREXA ZYDIS) 5 mg 1X ONCE PO Last administered on 07/28/17at 08: 46; Start 07/28/17 at 08:00; Stop 07/28/17 at 08:01; Status DC Olanzapine (ZyPREXA ZYDIS) 5 mg 1X ONCE PO Last administered on 07/28/17at 09: 00; Start 07/28/17 at 09:00; Stop 07/28/17 at 09:01; Status DC Carvedilol (Coreg) 6.25 mg BIDWMEALS PO Last administered on 08/08/17at 16:56; Start 08/01/17 at 17:00 Divalproex Sodium (Depakote Sprinkles) 375 mg BID@0900,2100 PO Last administered on 08/08/17at 08:05; Start 08/02/17 at 21:00 Divalproex Sodium (Depakote Sprinkles) 250 mg 1700 PO Last administered on 08/08at 16:43; Start 08/03/17 at 17:00 Vitamin D (Vitamin D3) 50,000 unit WEEKLY PO ; Start 08/08/17 at 18:00 Active Scripts Active Reported Senna Plus Tablet (Sennosides/Docusate Sodium) 1 Each Tablet 1 Tab PO PRN QHS PRN Nitrostat (Nitroglycerin) 0.3 Mg Tab.subl 0.3 Mg SL PRN Q5MIN PRN MDD 3 doses in 15 minutes Alprazolam 0.25 Mg Tablet 0.25 Mg PO PRN QHS PRN Spironolactone 25 Mg Tablet 25 Mg PO DAILY EXELON 4.6mg/24hr (Rivastigmine) 1 Each Patch.td24 1 Patch TD DAILY Nortriptyline Hcl 10 Mg Capsule 10 Mg PO QHS Lisinopril 2.5 Mg Tablet 2.5 Mg PO DAILY Eliquis (Apixaban) 2.5 Mg Tablet 2.5 Mg PO BID Depakote Sprinkle (Divalproex Sodium) 125 Mg Cap.sprink 125 Mg PO BID Coreg (Carvedilol) 25 Mg Tablet 25 Mg PO BIDWMEALS I have reviewed the current psychotropics carefully including drug interactions. Risk benefit ratio favors no change other than as noted in my dictated progress note. 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
[2017-08-08] MEDS: AMITRIPTYLINE HCL 25 MG TABLET PO SCH (20:06)
[2017-08-08] MEDS: traZODone 50 MG TABLET. PO SCH (20:06)
[2017-08-08] MEDS: CHOLECALCIFEROL (VITAMIN D3) 50,000 UNIT CAPSULE PO SCH (20:06)
[2017-08-09 06:15] VITALS: BP 122/67
[2017-08-09] MEDS: SPIRONOLACTONE 25 MG TABLET PO SCH (07:35)
[2017-08-09] MEDS: APIXABAN 2.5 MG TABLET PO SCH ×2 (07:35→20:51)
[2017-08-09] MEDS: CARVEDILOL 6.25 MG TABLET PO SCH ×2 (07:35→16:53)
[2017-08-09] MEDS: risperiDONE ORAL 1 MG/ML 30ml BOTTLE. SL SCH (07:36)
[2017-08-09] MEDS: DIVALPROEX 125 MG CAP.SPRINK PO SCH ×4 (07:36→20:51)
[2017-08-09 08:18] LABS: CALCIUM 9.4 mg/dL (8.5-10.1); CREATININE 1.4 mg/dL (0.7-1.3); GFR 47.8; POTASSIUM 3.8 mmol/L (3.5-5.1)
--- NOTE | 2017-08-09 11:26 | PN ---
DATE: 08/07/2017 PSYCHIATRIC PROGRESS NOTE This is a late entry 08/07/2017, covers elements not covered in my initial note 08/07/2017. SUBJECTIVE: I met with the patient the evening of 08/07/2017. The patient slept 6 hours previous evening, urinated on the floor, has some difficulty taking medications, but finally accepts it. REVIEW OF SYSTEMS: No CV, , pulmonary, eye, ENT system symptoms on review. MENTAL STATUS EXAM: He seems more oriented at times as was evident as I met with him evening of 08/07/2017. MENTAL STATUS EXAM: As noted above about orientation. Speech coherent, pleasant, smiling. Abstraction fair, computation impaired, language function intact. He is easily distracted. No suicidal or homicidal ideation. No clear psychotic symptoms. LABORATORY DATA: Reviewed. IMPRESSION: Major neurocognitive disorder, traumatic, vascular with delusion, depression, behavioral disturbance. PLAN: Continue psychotropics mentioned in my initial note. MAN Yamel GALVEZ MD DR: MITCHELL/julio c JOB#: [id number] / [id number]
--- NOTE | 2017-08-09 12:31 | CONS ---
DATE OF CONSULTATION: 08/08/2017 MEDICAL MANAGEMENT CONSULTATION HISTORY OF PRESENT ILLNESS: The patient is an 86-year-old male patient who apparently was referred from [facility] in [place], [place] by his primary care physician on account of worsening confusion, agitation, delusion, and aggression. The patient has been very markedly agitated, making war references, exit seeking. He eloped from the facility on the day of admission on 07/24/2017, and was difficult to get him back to the facility. His symptom has been worsening for about 2 weeks. His primary care physician started him on Depakote as a mood stabilizer. The patient has failed all of these interventions resulting in a referral to [facility] for inpatient psychiatric stabilization due to his dangerous and out of control behavior. PAST PSYCHIATRIC HISTORY: Significant for dementia of Alzheimer's vascular type. He apparently has been residing at the above facility, but for the past 2 weeks, behavior and symptoms have been worsening significantly resulting in dangerous behavior, eloping out of the facility in a subzero temperature needing authorities to be called in to contain him. He has some sleep and appetite changes, but no active suicidal or homicidal ideation. PAST MEDICAL HISTORY: Significant for hypertension, congestive heart failure, coronary artery disease, atrial fibrillation, chronic kidney disease. He has also had an internal defibrillator. PAST SURGICAL HISTORY: Significant for AICD placement. ALLERGIES: He is allergic to STATINS, MORPHINE, and NIASPAN. MEDICATIONS: He is currently on the following medications: He is on alprazolam 0.25 mg at bedtime, apixaban 2.5 mg twice a day, carvedilol 25 mg twice a day, Depakote 125 mg twice a day, lisinopril 2.5 mg once a day, nitroglycerin or Nitrostat 0.3 mg sublingually as needed, nortriptyline 10 mg at bedtime, rivastigmine or Exelon 4.6 mg transdermal patch once a day, Senna-S 1 tablet once a day, and spironolactone 25 mg daily. FAMILY HISTORY: Noncontributory. SOCIAL HISTORY: He apparently is a resident at the [facility] in [place]. He apparently does not smoke, drink alcohol, or use recreational drugs. The patient was very sleepy today and I could not really get him to answer any of my questions; however, normally he is ambulatory, up and about without any assistance or assistive devices. He apparently did not demonstrate any of these behaviors while here. PHYSICAL EXAMINATION: GENERAL: When I examined him, he looked well and was clearly in no apparent respiratory distress, slightly pale, not jaundiced or cyanosed from thyromegaly. No jugular venous distention. No limb edema. VITAL SIGNS: His heart rate was 75, blood pressure was 122/75, temperature was 98.4, respiratory rate of 16, and oxygen saturation was 99%. HEAD, EYES, EARS, NOSE, AND THROAT: Showed normocephalic, atraumatic. NECK: Supple. HEART: Showed normal first and second heart sounds. No gallop, rub, or murmur. CHEST: Clear to auscultation. No crepitation or rhonchi. ABDOMEN: Distended, soft, nontender. No guarding or rigidity. No organomegaly. All hernial orifices intact. Bowel sounds normal. NEUROLOGIC: He is demented; however, without any obvious lateralizing signs. All his cranial nerves are intact. He moves extremities without difficulty. He ambulates without assistance or assistive devices. LABORATORY DATA: His lab work showed a white cell count of 5600, hemoglobin 13.5, hematocrit 39, MCV 97, and platelet count of 177,000 with normal manual differential. He has marked eosinophilia. His eosinophil count was 8%. His serum sodium was 141, potassium 3.6, chloride 104, bicarbonate 29, anion gap of 8, BUN 23, creatinine 1.2. Estimated GFR was 57 mL per minute. His glucose was 90. His calcium was 9.2. Total bilirubin, AST, ALT, alkaline phosphatase were normal. Total protein was 6.9, albumin 2.9. His vitamin B12 was 792 and vitamin D was only 15. His hemoglobin A1c was 5.5%. Serum iron was 74. TIBC was 229 and iron saturation was 32. TSH was 1.55, total T4 was 5.3, total T3 was 77. Serum triglycerides were 84, total cholesterol 170, LDL was 105, VLDL was 16, HDL cholesterol was 49, and cholesterol to HDL cholesterol was 3. Urinalysis was essentially unremarkable. Toxicology screen showed that his Depakote has risen from 24 to 74 and his RPR was nonreactive. His CT scan of the head showed that there is no acute intracranial hyperdense hemorrhage is identified. There is a large area of lower density of left frontal lobe, probably due to sequelae of previous infarct, although could also be due to previous trauma given location. There is a small area of lower density of the right frontal lobe, also likely due to previous infarct. This is likely due to previous trauma. There are mild generalized supratentorial involutional changes. ASSESSMENT AND PLAN: The patient seems to be overall stable at least hemodynamically. His lab work revealed marked eosinophilia. He has also slightly elevated valproic acid, although this is still within the therapeutic range. His vitamin D was low also and apparently his Depakote was increased. I will start him on vitamin D, and as far as is eosinophilia maybe the fact that he was in [place] might be relevant. There is no history of bronchial asthma to suggest that might be the reason for that. WALDO DANGELO MD DR: JITENDRA/julio c JOB#: [id number] / [id number]
[2017-08-09 15:58] VITALS: BP 109/70
--- NOTE | 2017-08-09 20:01 | PDOC ---
Exam Note: Mcihi Note: Please also refer to the separate dictated note~for this date of service dictated separately.~Patient seen individually. Discussed the patient with Nursing staff reviewed the chart.~Reviewed interim history and current functioning. Reviewed vital signs,~Labs/ Radiology~and current medications noted below. Continue current treatment with the changes noted in the dictated addendum note Assessment: Vital Signs: Vital Signs Date Time Temp Pulse Resp B/P (MAP) Pulse Ox O2 Delivery O2 Flow Rate FiO2 08/09/17 16:53 89 109/70 08/09/17 15:58 98.2 20 95 08/07/17 07:42 Room Air I&O Intake and Output 08/09/17 07:00 Intake Total 920 ml Balance 920 ml Intake Oral 920 ml # Voids 2 Labs: Laboratory Tests Test 08/09/17 07:29 Prothrombin Time 11.0 SEC (9.4-11.4) Prothrombin Time INR 1.1 (0.9-1.1) Sodium Level 139 mmol/L (136-145) Potassium Level 3.8 mmol/L (3.5-5.1) Chloride Level 101 mmol/L (98-107) Carbon Dioxide Level 30 mmol/L (21-32) Anion Gap 8 (6-14) Blood Urea Nitrogen 23 mg/dL (8-26) Creatinine 1.4 mg/dL (0.7-1.3) H Estimated GFR (Cockcroft-Gault) 47.8 Glucose Level 92 mg/dL (70-99) Calcium Level 9.4 mg/dL (8.5-10.1) Ammonia < 10 mcmol/L (11-34) L Current Medications: Meds: Current Medications Alprazolam (Xanax) 0.25 mg PRN QHS PRN PO ANXIETY / AGITATION Last administered on 08/07/17at 22:56; Start 07/24/17 at 02:30 Divalproex Sodium (Depakote Sprinkles) 125 mg BID PO Last administered on at 10:54; Start 07/24/17 at 02:30; Stop 07/24/17 at 19:23; Status DC Nortriptyline HCl (Pamelor) 10 mg QHS PO Last administered on 07/24/17at 02:31; Start 07/24/17 at 02:30; Stop 07/24/17 at 19:23; Status DC Rivastigmine (Exelon) 1 patch DAILY TD Last administered on 07/26/17at 14:10; Start 07/24/17 at 09:00; Stop 07/26/17 at 18:24; Status DC Apixaban (Eliquis) 2.5 mg BID PO Last administered on 08/09/17at 07:35; Start at 09:00 Lisinopril (Prinivil) 2.5 mg DAILY PO Last administered on 07/31/17at 10:01; Start 07/24/17 at 09:00; Stop 08/01/17 at 10:51; Status DC Senna/Docusate Sodium (Senna Plus) 1 tab PRN QHS PRN PO CONSTIPATION; Start 05/29 at 08:15 Spironolactone (Aldactone) 25 mg DAILY PO Last administered on 08/09/17at 07:35 ; Start 07/24/17 at 09:00 Carvedilol (Coreg) 25 mg BIDWMEALS PO Last administered on 07/31/17at 17:39; Start 07/24/17 at 08:00; Stop 08/01/17 at 10:51; Status DC Nitroglycerin (Nitrostat) 0.4 mg PRN Q5MIN PRN SL CHEST PAIN; Start 07/24/17 at 08:15 Divalproex Sodium (Depakote Sprinkles) 125 mg TID@0900,1700,2100 PO Last administered on 07/27/17at 08:00; Start 07/24/17 at 21:00; Stop 07/27/17 at 11:48 ; Status DC Mirtazapine (Remeron) 7.5 mg QHS PO ; Start 07/24/17 at 21:00; Stop 07/26/17 at 18:24; Status DC Trazodone HCl (Desyrel) 50 mg QHS PO Last administered on 08/08/17at 20:06; Start 07/25/17 at 21:00 Trazodone HCl (Desyrel) 50 mg PRN QHS PRN PO insomnia Last administered on at 22:56; Start 07/25/17 at 19:15 Mirtazapine (Remeron) 15 mg QHS PO Last administered on 07/26/17at 23:39; Start 07/26/17 at 21:00; Stop 07/27/17 at 11:48; Status DC Risperidone (RisperDAL) 0.25 mg DAILY SL Last administered on 08/09/17at 07:36; Start 07/27/17 at 09:00 Divalproex Sodium (Depakote Sprinkles) 250 mg TID@0900,1700,2100 PO Last administered on 08/02/17at 16:45; Start 07/27/17 at 17:00; Stop 08/02/17 at 18:53 ; Status DC Amitriptyline HCl (Elavil) 25 mg QHS PO Last administered on 08/08/17at 20:06; Start 07/27/17 at 21:00 Olanzapine (ZyPREXA ZYDIS) 5 mg 1X ONCE PO ; Start 07/27/17 at 19:00; Stop at 23:17; Status DC Olanzapine (ZyPREXA ZYDIS) 5 mg 1X ONCE PO ; Start 07/27/17 at 19:00; Stop at 23:17; Status DC Olanzapine (ZyPREXA ZYDIS) 5 mg 1X ONCE PO Last administered on 07/28/17at 08: 46; Start 07/28/17 at 08:00; Stop 07/28/17 at 08:01; Status DC Olanzapine (ZyPREXA ZYDIS) 5 mg 1X ONCE PO Last administered on 07/28/17at 09: 00; Start 07/28/17 at 09:00; Stop 07/28/17 at 09:01; Status DC Carvedilol (Coreg) 6.25 mg BIDWMEALS PO Last administered on 08/09/17at 07:35; Start 08/01/17 at 17:00 Divalproex Sodium (Depakote Sprinkles) 375 mg BID@0900,2100 PO Last administered on 08/09/17at 07:36; Start 08/02/17 at 21:00 Divalproex Sodium (Depakote Sprinkles) 250 mg 1700 PO Last administered on 08/08at 16:43; Start 08/03/17 at 17:00 Vitamin D (Vitamin D3) 50,000 unit WEEKLY PO Last administered on 08/08/17at 20: 06; Start 08/08/17 at 18:00 Active Scripts Active Reported Senna Plus Tablet (Sennosides/Docusate Sodium) 1 Each Tablet 1 Tab PO PRN QHS PRN Nitrostat (Nitroglycerin) 0.3 Mg Tab.subl 0.3 Mg SL PRN Q5MIN PRN MDD 3 doses in 15 minutes Alprazolam 0.25 Mg Tablet 0.25 Mg PO PRN QHS PRN Spironolactone 25 Mg Tablet 25 Mg PO DAILY EXELON 4.6mg/24hr (Rivastigmine) 1 Each Patch.td24 1 Patch TD DAILY Nortriptyline Hcl 10 Mg Capsule 10 Mg PO QHS Lisinopril 2.5 Mg Tablet 2.5 Mg PO DAILY Eliquis (Apixaban) 2.5 Mg Tablet 2.5 Mg PO BID Depakote Sprinkle (Divalproex Sodium) 125 Mg Cap.sprink 125 Mg PO BID Coreg (Carvedilol) 25 Mg Tablet 25 Mg PO BIDWMEALS I have reviewed the current psychotropics carefully including drug interactions. Risk benefit ratio favors no change other than as noted in my dictated progress note. 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
[2017-08-09] MEDS: AMITRIPTYLINE HCL 25 MG TABLET PO SCH (20:51)
[2017-08-09] MEDS: traZODone 50 MG TABLET. PO SCH (20:51)
[2017-08-10 05:43] VITALS: BP 130/72
--- NOTE | 2017-08-10 07:51 | PN ---
DATE: 08/08/2017 This is a late entry 08/08/2017 covers elements, not covered in my initial note 08/08/2017. SUBJECTIVE: Met with the patient, evening of 08/08/2017. The patient slept 5 hours previous evening. Has done better during the day on 08/08/2017, tired at times, exit seeking. REVIEW OF SYSTEMS: No CV, , pulmonary, eye, ENT system symptoms on review. Reliability poor. MENTAL STATUS EXAM: Oriented to himself. Insight, judgment, recent and remote memory, attention, concentration, fund of knowledge poor, consistent with his diagnosis mentioned in my initial note. IMPRESSION: Major neurocognitive disorder, traumatic, vascular with delusion, depression, behavioral disturbance. PLAN: Continue current psychotropics. Valproic acid level therapeutic at 74. MAN Yamel GALVEZ MD DR: MITCHELL/julio c JOB#: [id number] / [id number]
[2017-08-10 07:52] VITALS: BP 122/62
[2017-08-10] MEDS: risperiDONE ORAL 1 MG/ML 30ml BOTTLE. SL SCH (08:05)
[2017-08-10] MEDS: DIVALPROEX 125 MG CAP.SPRINK PO SCH ×3 (08:05→19:10)
[2017-08-10] MEDS: APIXABAN 2.5 MG TABLET PO SCH ×2 (08:07→19:10)
[2017-08-10] MEDS: SPIRONOLACTONE 25 MG TABLET PO SCH (08:09)
[2017-08-10] MEDS: CARVEDILOL 6.25 MG TABLET PO SCH ×2 (08:09→16:29)
--- NOTE | 2017-08-10 09:00 | RAD ---
CT of the head without contrast, 08/10/2017: History: Fall, head trauma Comparison is made to a study from 07/28/2017. There is moderate cerebral atrophy. Unchanged encephalomalacia is present laterally in the left frontal lobe compatible with an old infarct. There are patchy bilateral deep white matter lucencies compatible with chronic ischemic change. There is also a small area of encephalomalacia laterally in the right frontal lobe compatible with an old infarct. The ventricles are mildly prominent on a compensatory basis. There is no shift of the midline structures. There is no evidence of acute intracranial hemorrhage or mass effect. There is calcific plaquing of the distal internal carotid and vertebral arteries. IMPRESSION: 1. 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 2. No acute intracranial abnormality is detected. PQRS Compliance Statement: One or more of the following individualized dose reduction techniques were utilized for this examination: 1. Automated exposure control 2. Adjustment of the mA and/or kV according to patient size 3. Use of iterative reconstruction technique
[2017-08-10] MEDS: ALPRAZolam 0.25 MG TABLET PO PRN (12:02)
[2017-08-10 15:47] VITALS: BP 130/65
[2017-08-10] MEDS: traZODone 50 MG TABLET. PO SCH (19:10)
[2017-08-10] MEDS: AMITRIPTYLINE HCL 25 MG TABLET PO SCH (19:10)
--- NOTE | 2017-08-10 20:13 | PDOC ---
Exam Note: Michi Note: Please also refer to the separate dictated note~for this date of service dictated separately.~Patient seen individually. Discussed the patient with Nursing staff reviewed the chart.~Reviewed interim history and current functioning. Reviewed vital signs,~Labs/ Radiology~and current medications noted below. Continue current treatment with the changes noted in the dictated addendum note Assessment: Vital Signs: Vital Signs Date Time Temp Pulse Resp B/P (MAP) Pulse Ox O2 Delivery O2 Flow Rate FiO2 08/10/17 16:29 80 130/65 08/10/17 15:47 97.1 17 98 Room Air I&O Intake and Output 08/10/17 07:00 Intake Total 600 ml Balance 600 ml Intake Oral 600 ml Current Medications: Meds: Current Medications Alprazolam (Xanax) 0.25 mg PRN QHS PRN PO ANXIETY / AGITATION Last administered on 08/10/17at 12:02; Start 07/24/17 at 02:30 Divalproex Sodium (Depakote Sprinkles) 125 mg BID PO Last administered on at 10:54; Start 07/24/17 at 02:30; Stop 07/24/17 at 19:23; Status DC Nortriptyline HCl (Pamelor) 10 mg QHS PO Last administered on 07/24/17at 02:31; Start 07/24/17 at 02:30; Stop 07/24/17 at 19:23; Status DC Rivastigmine (Exelon) 1 patch DAILY TD Last administered on 07/26/17at 14:10; Start 07/24/17 at 09:00; Stop 07/26/17 at 18:24; Status DC Apixaban (Eliquis) 2.5 mg BID PO Last administered on 08/10/17at 19:10; Start 05/29 at 09:00 Lisinopril (Prinivil) 2.5 mg DAILY PO Last administered on 07/31/17at 10:01; Start 07/24/17 at 09:00; Stop 08/01/17 at 10:51; Status DC Senna/Docusate Sodium (Senna Plus) 1 tab PRN QHS PRN PO CONSTIPATION; Start 05/29 at 08:15 Spironolactone (Aldactone) 25 mg DAILY PO Last administered on 08/10/17 08:09; Start 07/24/17 at 09:00 Carvedilol (Coreg) 25 mg BIDWMEALS PO Last administered on 07/31/17at 17:39; Start 07/24/17 at 08:00; Stop 08/01/17 at 10:51; Status DC Nitroglycerin (Nitrostat) 0.4 mg PRN Q5MIN PRN SL CHEST PAIN; Start 07/24/17 at 08:15 Divalproex Sodium (Depakote Sprinkles) 125 mg TID@0900,1700,2100 PO Last administered on 07/27/17 08:00; Start 07/24/17 at 21:00; Stop 07/27/17 at 11:48 ; Status DC Mirtazapine (Remeron) 7.5 mg QHS PO ; Start 07/24/17 at 21:00; Stop 07/26/17 at 18:24; Status DC Trazodone HCl (Desyrel) 50 mg QHS PO Last administered on 08/10/17 19:10; Start 07/25/17 at 21:00 Trazodone HCl (Desyrel) 50 mg PRN QHS PRN PO insomnia Last administered on at 22:56; Start 07/25/17 at 19:15 Mirtazapine (Remeron) 15 mg QHS PO Last administered on 07/26/17at 23:39; Start 07/26/17 at 21:00; Stop 07/27/17 at 11:48; Status DC Risperidone (RisperDAL) 0.25 mg DAILY SL Last administered on 08/09/17at 07:36; Start 07/27/17 at 09:00 Divalproex Sodium (Depakote Sprinkles) 250 mg TID@0900,1700,2100 PO Last administered on 08/02/17at 16:45; Start 07/27/17 at 17:00; Stop 08/02/17 at 18:53 ; Status DC Amitriptyline HCl (Elavil) 25 mg QHS PO Last administered on 08/10/17 19:10; Start 07/27/17 at 21:00 Olanzapine (ZyPREXA ZYDIS) 5 mg 1X ONCE PO ; Start 07/27/17 at 19:00; Stop at 23:17; Status DC Olanzapine (ZyPREXA ZYDIS) 5 mg 1X ONCE PO ; Start 07/27/17 at 19:00; Stop at 23:17; Status DC Olanzapine (ZyPREXA ZYDIS) 5 mg 1X ONCE PO Last administered on 07/28/17at 08: 46; Start 07/28/17 at 08:00; Stop 07/28/17 at 08:01; Status DC Olanzapine (ZyPREXA ZYDIS) 5 mg 1X ONCE PO Last administered on 07/28/17at 09: 00; Start 07/28/17 at 09:00; Stop 07/28/17 at 09:01; Status DC Carvedilol (Coreg) 6.25 mg BIDWMEALS PO Last administered on 08/10/17at 16:29; Start 08/01/17 at 17:00 Divalproex Sodium (Depakote Sprinkles) 375 mg BID@0900,2100 PO Last administered on 08/10/17at 19:10; Start 08/02/17 at 21:00 Divalproex Sodium (Depakote Sprinkles) 250 mg 1700 PO Last administered on at 16:28; Start 08/03/17 at 17:00 Vitamin D (Vitamin D3) 50,000 unit WEEKLY PO Last administered on 08/08/17at 20: 06; Start 08/08/17 at 18:00 Active Scripts Active Reported Senna Plus Tablet (Sennosides/Docusate Sodium) 1 Each Tablet 1 Tab PO PRN QHS PRN Nitrostat (Nitroglycerin) 0.3 Mg Tab.subl 0.3 Mg SL PRN Q5MIN PRN MDD 3 doses in 15 minutes Alprazolam 0.25 Mg Tablet 0.25 Mg PO PRN QHS PRN Spironolactone 25 Mg Tablet 25 Mg PO DAILY EXELON 4.6mg/24hr (Rivastigmine) 1 Each Patch.td24 1 Patch TD DAILY Nortriptyline Hcl 10 Mg Capsule 10 Mg PO QHS Lisinopril 2.5 Mg Tablet 2.5 Mg PO DAILY Eliquis (Apixaban) 2.5 Mg Tablet 2.5 Mg PO BID Depakote Sprinkle (Divalproex Sodium) 125 Mg Cap.sprink 125 Mg PO BID Coreg (Carvedilol) 25 Mg Tablet 25 Mg PO BIDWMEALS I have reviewed the current psychotropics carefully including drug interactions. Risk benefit ratio favors no change other than as noted in my dictated progress note. 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
[2017-08-11 06:43] VITALS: BP 119/63
[2017-08-11] MEDS: DIVALPROEX 125 MG CAP.SPRINK PO SCH ×3 (09:34→20:17)
[2017-08-11] MEDS: CARVEDILOL 6.25 MG TABLET PO SCH ×2 (09:34→16:34)
[2017-08-11] MEDS: APIXABAN 2.5 MG TABLET PO SCH ×2 (09:34→20:18)
[2017-08-11] MEDS: SPIRONOLACTONE 25 MG TABLET PO SCH (09:34)
[2017-08-11] MEDS: risperiDONE ORAL 1 MG/ML 30ml BOTTLE. SL SCH (09:36)
[2017-08-11] MEDS: AMITRIPTYLINE HCL 25 MG TABLET PO SCH (20:18)
[2017-08-11] MEDS: traZODone 50 MG TABLET. PO SCH (20:25)
--- NOTE | 2017-08-11 22:28 | PDOC ---
Exam Note: Michi Note: Please also refer to the separate dictated note~for this date of service dictated separately.~Patient seen individually. Discussed the patient with Nursing staff reviewed the chart.~Reviewed interim history and current functioning. Reviewed vital signs,~Labs/ Radiology~and current medications noted below. Continue current treatment with the changes noted in the dictated addendum note Assessment: Vital Signs: Vital Signs Date Time Temp Pulse Resp B/P (MAP) Pulse Ox O2 Delivery O2 Flow Rate FiO2 08/11/17 16:34 76 119/63 08/11/17 06:43 95.6 18 95 Room Air I&O Intake and Output 08/11/17 07:00 Intake Total 600 ml Balance 600 ml Intake Oral 600 ml # Voids 2 Current Medications: Meds: Current Medications Alprazolam (Xanax) 0.25 mg PRN QHS PRN PO ANXIETY / AGITATION Last administered on 08/10/17at 12:02; Start 07/24/17 at 02:30 Divalproex Sodium (Depakote Sprinkles) 125 mg BID PO Last administered on at 10:54; Start 07/24/17 at 02:30; Stop 07/24/17 at 19:23; Status DC Nortriptyline HCl (Pamelor) 10 mg QHS PO Last administered on 07/24/17at 02:31; Start 07/24/17 at 02:30; Stop 07/24/17 at 19:23; Status DC Rivastigmine (Exelon) 1 patch DAILY TD Last administered on 07/26/17at 14:10; Start 07/24/17 at 09:00; Stop 07/26/17 at 18:24; Status DC Apixaban (Eliquis) 2.5 mg BID PO Last administered on 08/11/17at 20:18; Start 05/29 at 09:00 Lisinopril (Prinivil) 2.5 mg DAILY PO Last administered on 07/31/17at 10:01; Start 07/24/17 at 09:00; Stop 08/01/17 at 10:51; Status DC Senna/Docusate Sodium (Senna Plus) 1 tab PRN QHS PRN PO CONSTIPATION; Start 05/29 at 08:15 Spironolactone (Aldactone) 25 mg DAILY PO Last administered on 08/11/17 09:34; Start 07/24/17 at 09:00 Carvedilol (Coreg) 25 mg BIDWMEALS PO Last administered on 07/31/17at 17:39; Start 07/24/17 at 08:00; Stop 08/01/17 at 10:51; Status DC Nitroglycerin (Nitrostat) 0.4 mg PRN Q5MIN PRN SL CHEST PAIN; Start 07/24/17 at 08:15 Divalproex Sodium (Depakote Sprinkles) 125 mg TID@0900,1700,2100 PO Last administered on 07/27/17at 08:00; Start 07/24/17 at 21:00; Stop 07/27/17 at 11:48 ; Status DC Mirtazapine (Remeron) 7.5 mg QHS PO ; Start 07/24/17 at 21:00; Stop 07/26/17 at 18:24; Status DC Trazodone HCl (Desyrel) 50 mg QHS PO Last administered on 08/11/17at 20:25; Start 07/25/17 at 21:00 Trazodone HCl (Desyrel) 50 mg PRN QHS PRN PO insomnia Last administered on at 22:56; Start 07/25/17 at 19:15 Mirtazapine (Remeron) 15 mg QHS PO Last administered on 07/26/17at 23:39; Start 07/26/17 at 21:00; Stop 07/27/17 at 11:48; Status DC Risperidone (RisperDAL) 0.25 mg DAILY SL Last administered on 08/11/17at 09:36; Start 07/27/17 at 09:00 Divalproex Sodium (Depakote Sprinkles) 250 mg TID@0900,1700,2100 PO Last administered on 08/02/17at 16:45; Start 07/27/17 at 17:00; Stop 08/02/17 at 18:53 ; Status DC Amitriptyline HCl (Elavil) 25 mg QHS PO Last administered on 08/11/17 20:18; Start 07/27/17 at 21:00 Olanzapine (ZyPREXA ZYDIS) 5 mg 1X ONCE PO ; Start 07/27/17 at 19:00; Stop at 23:17; Status DC Olanzapine (ZyPREXA ZYDIS) 5 mg 1X ONCE PO ; Start 07/27/17 at 19:00; Stop at 23:17; Status DC Olanzapine (ZyPREXA ZYDIS) 5 mg 1X ONCE PO Last administered on 07/28/17at 08: 46; Start 07/28/17 at 08:00; Stop 07/28/17 at 08:01; Status DC Olanzapine (ZyPREXA ZYDIS) 5 mg 1X ONCE PO Last administered on 07/28/17at 09: 00; Start 07/28/17 at 09:00; Stop 07/28/17 at 09:01; Status DC Carvedilol (Coreg) 6.25 mg BIDWMEALS PO Last administered on 08/11/17at 16:34; Start 08/01/17 at 17:00 Divalproex Sodium (Depakote Sprinkles) 375 mg BID@0900,2100 PO Last administered on 08/11/17at 20:17; Start 08/02/17 at 21:00 Divalproex Sodium (Depakote Sprinkles) 250 mg 1700 PO Last administered on at 16:34; Start 08/03/17 at 17:00 Vitamin D (Vitamin D3) 50,000 unit WEEKLY PO Last administered on 08/08/17at 20: 06; Start 08/08/17 at 18:00 Active Scripts Active Reported Senna Plus Tablet (Sennosides/Docusate Sodium) 1 Each Tablet 1 Tab PO PRN QHS PRN Nitrostat (Nitroglycerin) 0.3 Mg Tab.subl 0.3 Mg SL PRN Q5MIN PRN MDD 3 doses in 15 minutes Alprazolam 0.25 Mg Tablet 0.25 Mg PO PRN QHS PRN Spironolactone 25 Mg Tablet 25 Mg PO DAILY EXELON 4.6mg/24hr (Rivastigmine) 1 Each Patch.td24 1 Patch TD DAILY Nortriptyline Hcl 10 Mg Capsule 10 Mg PO QHS Lisinopril 2.5 Mg Tablet 2.5 Mg PO DAILY Eliquis (Apixaban) 2.5 Mg Tablet 2.5 Mg PO BID Depakote Sprinkle (Divalproex Sodium) 125 Mg Cap.sprink 125 Mg PO BID Coreg (Carvedilol) 25 Mg Tablet 25 Mg PO BIDWMEALS I have reviewed the current psychotropics carefully including drug interactions. Risk benefit ratio favors no change other than as noted in my dictated progress note. 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
--- NOTE | 2017-08-11 22:40 | PN ---
DATE: 08/09/2017 This late entry 08/09/2017 covers elements not covered in my initial note 08/09/2017. SUBJECTIVE: The patient took his meds crushed in pudding. Creatinine 1.4. Ammonia less than 10. Slept in the evening. Refused Depakote. Wandering and naked in the hallways. REVIEW OF SYSTEMS: No CV, , pulmonary, eye, ENT system symptoms on review. Reliability poor. MENTAL STATUS EXAM: Oriented to himself. Insight, judgment, recent and remote memory, attention, concentration, fund of knowledge poor, consistent with his diagnosis. IMPRESSION: Major neurocognitive disorder, traumatic, vascular with depression, delusion, behavioral disturbance. He has repetitive verbalizations of past trauma and experiences from the [place] War, raising the question of posttraumatic stress disorder. Rest unchanged. PLAN: Continue psychotropics mentioned in my initial note. MAN Yamel GALVEZ MD DR: MITCHELL/julio c JOB#: [id number] / [id number]
--- NOTE | 2017-08-12 00:24 | PN ---
DATE: 08/10/2017 This is a late entry, 08/10/2017, covers the elements not covered in my initial note, 08/10/2017. SUBJECTIVE: I met with the patient in the evening of 08/10/2017, staffed at treatment team meeting with the entire team morning of 08/10/2017. The patient's daughter, Estela attended the treatment team meeting and lengthy discussion about his diagnosis. The patient fell backward and hit his head at the back tailor helper of 08/10/2017, and nursing staff had called me. CT head is unremarkable. He fell in the bathroom, slept 6 hours previous evening. Appetite is fair, intrusive with female patients. REVIEW OF SYSTEMS: No CV, , pulmonary, eye, ENT system symptoms on review. Reliability poor. MENTAL STATUS EXAM: Oriented to himself. Insight, judgment, recent and remote memory, attention, concentration, fund of knowledge poor, consistent with his diagnosis as mentioned in my initial note. PLAN: Continue psychotropics as mentioned in my initial note. We may need to reduce the Depakote if gait is unsteady or secondary to possible fall risk, but he is sleeping a little better on the amitriptyline, before that, he was not sleeping at all. LUIS CARLOS GALVEZ MD DR: MITCHELL/julio c JOB#: [id number] / [id number]
[2017-08-12 06:41] VITALS: BP 115/54
[2017-08-12] MEDS: CARVEDILOL 6.25 MG TABLET PO SCH ×2 (07:31→17:11)
[2017-08-12] MEDS: APIXABAN 2.5 MG TABLET PO SCH ×2 (07:31→20:15)
[2017-08-12] MEDS: SPIRONOLACTONE 25 MG TABLET PO SCH (07:31)
[2017-08-12] MEDS: DIVALPROEX 125 MG CAP.SPRINK PO SCH ×3 (07:31→20:14)
[2017-08-12] MEDS: risperiDONE ORAL 1 MG/ML 30ml BOTTLE. SL SCH (07:32)
[2017-08-12 08:48] LABS: BASO % 1 % (0-3); EOS # 0.4 x10^3/uL (0.0-0.7); EOS % 6 % (0-3); HEMATOCRIT 37.5 % (39.0-53.0); HEMOGLOBIN 12.7 g/dL (13.0-17.5); LYMPH # 2.1 x10^3/uL (1.0-4.8); LYMPH % 32 % (24-48); MEAN CORPUSCULAR HEMOGLOBIN 33 pg (25-35); MEAN CORPUSCULAR HGB CONC 34 g/dL (31-37); MEAN CORPUSCULAR VOLUME 96 fL (79-100); MONO % 15 % (0-9); NEUT # 3.1 x10^3uL (1.8-7.7); NEUT % 46 % (31-73); PLATELET COUNT 155 x10^3/uL (140-400); RED CELL DISTRIBUTION WIDTH 13.8 % (11.5-14.5); WHITE BLOOD COUNT 6.6 x10^3/uL (4.0-11.0)
[2017-08-12 09:03] LABS: ALBUMIN 2.7 g/dL (3.4-5.0); ALBUMIN/GLOBULIN RATIO 0.7 (1.0-1.7); CALCIUM 8.8 mg/dL (8.5-10.1); CREATININE 1.1 mg/dL (0.7-1.3); GFR 63.2; POTASSIUM 3.7 mmol/L (3.5-5.1); TOTAL BILIRUBIN 0.4 mg/dL (0.2-1.0); TOTAL PROTEIN 6.4 g/dL (6.4-8.2)
[2017-08-12 09:45] LABS: % BASOS 1 % (0-3); % EOS 5 % (0-5); % LYMPHS 33 % (24-48); % METAS 2 % (0-0); % MONOS 10 % (0-10); % SEGS 49 % (35-66)
[2017-08-12 09:46] LABS: PLT ESTIMATE ADEQUATE (ADEQUATE)
[2017-08-12 16:49] VITALS: BP 111/67
[2017-08-12] MEDS: AMITRIPTYLINE HCL 25 MG TABLET PO SCH (20:15)
[2017-08-12] MEDS: traZODone 50 MG TABLET. PO SCH (20:15)
--- NOTE | 2017-08-12 21:14 | PDOC ---
Exam Note: Michi Note: Please also refer to the separate dictated note~for this date of service dictated separately.~Patient seen individually. Discussed the patient with Nursing staff reviewed the chart.~Reviewed interim history and current functioning. Reviewed vital signs,~Labs/ Radiology~and current medications noted below. Continue current treatment with the changes noted in the dictated addendum note Assessment: Vital Signs: Vital Signs Date Time Temp Pulse Resp B/P (MAP) Pulse Ox O2 Delivery O2 Flow Rate FiO2 08/12/17 17:11 77 111/67 08/12/17 16:49 97.2 16 97 Room Air I&O Intake and Output 08/12/17 07:00 Intake Total 720 ml Balance 720 ml Intake Oral 720 ml Labs: Laboratory Tests Test 08/12/17 07:30 White Blood Count 6.6 x10^3/uL (4.0-11.0) Red Blood Count 3.90 x10^6/uL (4.30-5.70) L Hemoglobin 12.7 g/dL (13.0-17.5) L Hematocrit 37.5 % (39.0-53.0) L Mean Corpuscular Volume 96 fL (79-100) Mean Corpuscular Hemoglobin 33 pg (25-35) Mean Corpuscular Hemoglobin Concent 34 g/dL (31-37) Red Cell Distribution Width 13.8 % (11.5-14.5) Platelet Count 155 x10^3/uL (140-400) Neutrophils (%) (Auto) 46 % (31-73) Lymphocytes (%) (Auto) 32 % (24-48) Monocytes (%) (Auto) 15 % (0-9) H Eosinophils (%) (Auto) 6 % (0-3) H Basophils (%) (Auto) 1 % (0-3) Neutrophils # (Auto) 3.1 x10^3uL (1.8-7.7) Lymphocytes # (Auto) 2.1 x10^3/uL (1.0-4.8) Monocytes # (Auto) 1.0 x10^3/uL (0.0-1.1) Eosinophils # (Auto) 0.4 x10^3/uL (0.0-0.7) Basophils # (Auto) 0.0 x10^3/uL (0.0-0.2) Segmented Neutrophils % 49 % (35-66) Lymphocytes % 33 % (24-48) Monocytes % 10 % (0-10) Eosinophils % 5 % (0-5) Basophils % 1 % (0-3) Metamyelocytes % 2 % (0-0) H Platelet Estimate Adequate (ADEQUATE) Sodium Level 138 mmol/L (136-145) Potassium Level 3.7 mmol/L (3.5-5.1) Chloride Level 102 mmol/L (98-107) Carbon Dioxide Level 26 mmol/L (21-32) Anion Gap 10 (6-14) Blood Urea Nitrogen 21 mg/dL (8-26) Creatinine 1.1 mg/dL (0.7-1.3) Estimated GFR (Cockcroft-Gault) 63.2 BUN/Creatinine Ratio 19 (6-20) Glucose Level 82 mg/dL (70-99) Calcium Level 8.8 mg/dL (8.5-10.1) Total Bilirubin 0.4 mg/dL (0.2-1.0) Aspartate Amino Transferase (AST) 26 U/L (15-37) Alanine Aminotransferase (ALT) 11 U/L (16-63) L Alkaline Phosphatase 43 U/L (46-116) L Total Protein 6.4 g/dL (6.4-8.2) Albumin 2.7 g/dL (3.4-5.0) L Albumin/Globulin Ratio 0.7 (1.0-1.7) L Current Medications: Meds: Current Medications Alprazolam (Xanax) 0.25 mg PRN QHS PRN PO ANXIETY / AGITATION Last administered on 08/10/17at 12:02; Start 07/24/17 at 02:30 Divalproex Sodium (Depakote Sprinkles) 125 mg BID PO Last administered on at 10:54; Start 07/24/17 at 02:30; Stop 07/24/17 at 19:23; Status DC Nortriptyline HCl (Pamelor) 10 mg QHS PO Last administered on 07/24/17at 02:31; Start 07/24/17 at 02:30; Stop 07/24/17 at 19:23; Status DC Rivastigmine (Exelon) 1 patch DAILY TD Last administered on 07/26/17at 14:10; Start 07/24/17 at 09:00; Stop 07/26/17 at 18:24; Status DC Apixaban (Eliquis) 2.5 mg BID PO Last administered on 08/12/17at 20:15; Start 05/29 at 09:00 Lisinopril (Prinivil) 2.5 mg DAILY PO Last administered on 07/31/17at 10:01; Start 07/24/17 at 09:00; Stop 08/01/17 at 10:51; Status DC Senna/Docusate Sodium (Senna Plus) 1 tab PRN QHS PRN PO CONSTIPATION; Start 05/29 at 08:15 Spironolactone (Aldactone) 25 mg DAILY PO Last administered on 08/12/17at 07:31; Start 07/24/17 at 09:00 Carvedilol (Coreg) 25 mg BIDWMEALS PO Last administered on 07/31/17at 17:39; Start 07/24/17 at 08:00; Stop 08/01/17 at 10:51; Status DC Nitroglycerin (Nitrostat) 0.4 mg PRN Q5MIN PRN SL CHEST PAIN; Start 07/24/17 at 08:15 Divalproex Sodium (Depakote Sprinkles) 125 mg TID@0900,1700,2100 PO Last administered on 07/27/17at 08:00; Start 07/24/17 at 21:00; Stop 07/27/17 at 11:48 ; Status DC Mirtazapine (Remeron) 7.5 mg QHS PO ; Start 07/24/17 at 21:00; Stop 07/26/17 at 18:24; Status DC Trazodone HCl (Desyrel) 50 mg QHS PO Last administered on 08/12/17at 20:15; Start 07/25/17 at 21:00 Trazodone HCl (Desyrel) 50 mg PRN QHS PRN PO insomnia Last administered on at 22:56; Start 07/25/17 at 19:15 Mirtazapine (Remeron) 15 mg QHS PO Last administered on 07/26/17at 23:39; Start 07/26/17 at 21:00; Stop 07/27/17 at 11:48; Status DC Risperidone (RisperDAL) 0.25 mg DAILY SL Last administered on 08/12/17 07:32; Start 07/27/17 at 09:00 Divalproex Sodium (Depakote Sprinkles) 250 mg TID@0900,1700,2100 PO Last administered on 08/02/17at 16:45; Start 07/27/17 at 17:00; Stop 08/02/17 at 18:53 ; Status DC Amitriptyline HCl (Elavil) 25 mg QHS PO Last administered on 08/12/17at 20:15; Start 07/27/17 at 21:00 Olanzapine (ZyPREXA ZYDIS) 5 mg 1X ONCE PO ; Start 07/27/17 at 19:00; Stop at 23:17; Status DC Olanzapine (ZyPREXA ZYDIS) 5 mg 1X ONCE PO ; Start 07/27/17 at 19:00; Stop at 23:17; Status DC Olanzapine (ZyPREXA ZYDIS) 5 mg 1X ONCE PO Last administered on 07/28/17at 08: 46; Start 07/28/17 at 08:00; Stop 07/28/17 at 08:01; Status DC Olanzapine (ZyPREXA ZYDIS) 5 mg 1X ONCE PO Last administered on 07/28/17at 09: 00; Start 07/28/17 at 09:00; Stop 07/28/17 at 09:01; Status DC Carvedilol (Coreg) 6.25 mg BIDWMEALS PO Last administered on 08/12/17 17:11; Start 08/01/17 at 17:00 Divalproex Sodium (Depakote Sprinkles) 375 mg BID@0900,2100 PO Last administered on 08/12/17 20:14; Start 08/02/17 at 21:00 Divalproex Sodium (Depakote Sprinkles) 250 mg 1700 PO Last administered on 17:12; Start 08/03/17 at 17:00 Vitamin D (Vitamin D3) 50,000 unit WEEKLY PO Last administered on 08/08/17at 20: 06; Start 08/08/17 at 18:00 Active Scripts Active Reported Senna Plus Tablet (Sennosides/Docusate Sodium) 1 Each Tablet 1 Tab PO PRN QHS PRN Nitrostat (Nitroglycerin) 0.3 Mg Tab.subl 0.3 Mg SL PRN Q5MIN PRN MDD 3 doses in 15 minutes Alprazolam 0.25 Mg Tablet 0.25 Mg PO PRN QHS PRN Spironolactone 25 Mg Tablet 25 Mg PO DAILY EXELON 4.6mg/24hr (Rivastigmine) 1 Each Patch.td24 1 Patch TD DAILY Nortriptyline Hcl 10 Mg Capsule 10 Mg PO QHS Lisinopril 2.5 Mg Tablet 2.5 Mg PO DAILY Eliquis (Apixaban) 2.5 Mg Tablet 2.5 Mg PO BID Depakote Sprinkle (Divalproex Sodium) 125 Mg Cap.sprink 125 Mg PO BID Coreg (Carvedilol) 25 Mg Tablet 25 Mg PO BIDWMEALS I have reviewed the current psychotropics carefully including drug interactions. Risk benefit ratio favors no change other than as noted in my dictated progress note. 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
[2017-08-13 06:33] VITALS: BP 102/64
[2017-08-13] MEDS: SPIRONOLACTONE 25 MG TABLET PO SCH (07:13)
[2017-08-13] MEDS: APIXABAN 2.5 MG TABLET PO SCH ×2 (07:13→20:40)
[2017-08-13] MEDS: DIVALPROEX 125 MG CAP.SPRINK PO SCH ×3 (07:13→20:41)
[2017-08-13] MEDS: CARVEDILOL 6.25 MG TABLET PO SCH ×2 (07:14→17:00)
[2017-08-13] MEDS: risperiDONE ORAL 1 MG/ML 30ml BOTTLE. SL SCH (07:15)
[2017-08-13 16:18] VITALS: BP 109/59
--- NOTE | 2017-08-13 19:08 | PN ---
DATE: 08/12/2017 This is a late entry, 08/12/2017, covers the elements not covered in my initial note, 08/12/2017. SUBJECTIVE: I met with the patient in the evening of 08/12/2017, compliant with medications, pleasantly confused, delusional, and redirectable. REVIEW OF SYSTEMS: No CV, , pulmonary, eye, ENT system symptoms on review. Reliability poor. MENTAL STATUS EXAM: Oriented to himself. Insight, judgment, recent and remote memory, attention, concentration, fund of knowledge poor, consistent with his diagnosis mentioned in my initial note. PLAN: Continue psychotropics as mentioned in my initial note. Adjust as clinically indicated. MAN Yamel GALVEZ MD DR: MITCHELL/julio c JOB#: [id number] / [id number]
--- NOTE | 2017-08-13 20:19 | PDOC ---
Exam Note: Michi Note: Please also refer to the separate dictated note~for this date of service dictated separately.~Patient seen individually. Discussed the patient with Nursing staff reviewed the chart.~Reviewed interim history and current functioning. Reviewed vital signs,~Labs/ Radiology~and current medications noted below. Continue current treatment with the changes noted in the dictated addendum note Assessment: Vital Signs: Vital Signs Date Time Temp Pulse Resp B/P (MAP) Pulse Ox O2 Delivery O2 Flow Rate FiO2 08/13/17 17:00 75 109/59 08/13/17 16:18 96.9 20 97 08/12/17 16:49 Room Air I&O Intake and Output 08/13/17 07:00 Intake Total 840 ml Balance 840 ml Intake Oral 840 ml Current Medications: Meds: Current Medications Alprazolam (Xanax) 0.25 mg PRN QHS PRN PO ANXIETY / AGITATION Last administered on 08/10/17at 12:02; Start 07/24/17 at 02:30 Divalproex Sodium (Depakote Sprinkles) 125 mg BID PO Last administered on at 10:54; Start 07/24/17 at 02:30; Stop 07/24/17 at 19:23; Status DC Nortriptyline HCl (Pamelor) 10 mg QHS PO Last administered on 07/24/17at 02:31; Start 07/24/17 at 02:30; Stop 07/24/17 at 19:23; Status DC Rivastigmine (Exelon) 1 patch DAILY TD Last administered on 07/26/17at 14:10; Start 07/24/17 at 09:00; Stop 07/26/17 at 18:24; Status DC Apixaban (Eliquis) 2.5 mg BID PO Last administered on 08/13/17at 07:13; Start 05/29 at 09:00 Lisinopril (Prinivil) 2.5 mg DAILY PO Last administered on 07/31/17at 10:01; Start 07/24/17 at 09:00; Stop 08/01/17 at 10:51; Status DC Senna/Docusate Sodium (Senna Plus) 1 tab PRN QHS PRN PO CONSTIPATION; Start 05/29 at 08:15 Spironolactone (Aldactone) 25 mg DAILY PO Last administered on 08/13/17 07:13; Start 07/24/17 at 09:00 Carvedilol (Coreg) 25 mg BIDWMEALS PO Last administered on 07/31/17at 17:39; Start 07/24/17 at 08:00; Stop 08/01/17 at 10:51; Status DC Nitroglycerin (Nitrostat) 0.4 mg PRN Q5MIN PRN SL CHEST PAIN; Start 07/24/17 at 08:15 Divalproex Sodium (Depakote Sprinkles) 125 mg TID@0900,1700,2100 PO Last administered on 07/27/17at 08:00; Start 07/24/17 at 21:00; Stop 07/27/17 at 11:48 ; Status DC Mirtazapine (Remeron) 7.5 mg QHS PO ; Start 07/24/17 at 21:00; Stop 07/26/17 at 18:24; Status DC Trazodone HCl (Desyrel) 50 mg QHS PO Last administered on 08/12/17at 20:15; Start 07/25/17 at 21:00 Trazodone HCl (Desyrel) 50 mg PRN QHS PRN PO insomnia Last administered on at 22:56; Start 07/25/17 at 19:15 Mirtazapine (Remeron) 15 mg QHS PO Last administered on 07/26/17at 23:39; Start 07/26/17 at 21:00; Stop 07/27/17 at 11:48; Status DC Risperidone (RisperDAL) 0.25 mg DAILY SL Last administered on 08/13/17at 07:15; Start 07/27/17 at 09:00 Divalproex Sodium (Depakote Sprinkles) 250 mg TID@0900,1700,2100 PO Last administered on 08/02/17at 16:45; Start 07/27/17 at 17:00; Stop 08/02/17 at 18:53 ; Status DC Amitriptyline HCl (Elavil) 25 mg QHS PO Last administered on 08/12/17 20:15; Start 07/27/17 at 21:00 Olanzapine (ZyPREXA ZYDIS) 5 mg 1X ONCE PO ; Start 07/27/17 at 19:00; Stop at 23:17; Status DC Olanzapine (ZyPREXA ZYDIS) 5 mg 1X ONCE PO ; Start 07/27/17 at 19:00; Stop at 23:17; Status DC Olanzapine (ZyPREXA ZYDIS) 5 mg 1X ONCE PO Last administered on 07/28/17at 08: 46; Start 07/28/17 at 08:00; Stop 07/28/17 at 08:01; Status DC Olanzapine (ZyPREXA ZYDIS) 5 mg 1X ONCE PO Last administered on 07/28/17at 09: 00; Start 07/28/17 at 09:00; Stop 07/28/17 at 09:01; Status DC Carvedilol (Coreg) 6.25 mg BIDWMEALS PO Last administered on 08/12/17at 17:11; Start 08/01/17 at 17:00 Divalproex Sodium (Depakote Sprinkles) 375 mg BID@0900,2100 PO Last administered on 08/13/17at 07:13; Start 08/02/17 at 21:00 Divalproex Sodium (Depakote Sprinkles) 250 mg 1700 PO Last administered on at 17:25; Start 08/03/17 at 17:00 Vitamin D (Vitamin D3) 50,000 unit WEEKLY PO Last administered on 08/08/17at 20: 06; Start 08/08/17 at 18:00 Active Scripts Active Reported Senna Plus Tablet (Sennosides/Docusate Sodium) 1 Each Tablet 1 Tab PO PRN QHS PRN Nitrostat (Nitroglycerin) 0.3 Mg Tab.subl 0.3 Mg SL PRN Q5MIN PRN MDD 3 doses in 15 minutes Alprazolam 0.25 Mg Tablet 0.25 Mg PO PRN QHS PRN Spironolactone 25 Mg Tablet 25 Mg PO DAILY EXELON 4.6mg/24hr (Rivastigmine) 1 Each Patch.td24 1 Patch TD DAILY Nortriptyline Hcl 10 Mg Capsule 10 Mg PO QHS Lisinopril 2.5 Mg Tablet 2.5 Mg PO DAILY Eliquis (Apixaban) 2.5 Mg Tablet 2.5 Mg PO BID Depakote Sprinkle (Divalproex Sodium) 125 Mg Cap.sprink 125 Mg PO BID Coreg (Carvedilol) 25 Mg Tablet 25 Mg PO BIDWMEALS I have reviewed the current psychotropics carefully including drug interactions. Risk benefit ratio favors no change other than as noted in my dictated progress note. 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
[2017-08-13] MEDS: traZODone 50 MG TABLET. PO SCH (20:40)
[2017-08-13] MEDS: AMITRIPTYLINE HCL 25 MG TABLET PO SCH (20:40)
[2017-08-14 06:33] VITALS: BP 120/58
--- NOTE | 2017-08-14 07:13 | PN ---
DATE: 08/11/2017 PSYCHIATRIC PROGRESS NOTE This is a late entry for 08/11/2017, covers elements not covered in my initial note of 08/11/2017. SUBJECTIVE: The patient has been wandering, calm more during the day. Believes he works here, took his medications whole from his daughter the day before. REVIEW OF SYSTEMS: No CV, , pulmonary, eye, ENT system symptoms on review. Reliability poor. MENTAL STATUS EXAM: Oriented to himself. Insight, judgment, recent and remote memory, attention, concentration, fund of knowledge poor, consistent with his diagnosis mentioned in my initial note. PLAN: Continue psychotropics mentioned in my initial note. MAN Yamel GALVEZ MD DR: MITCHELL/julio c JOB#: [id number] / [id number]
[2017-08-14] MEDS: CARVEDILOL 6.25 MG TABLET PO SCH ×2 (07:55→16:56)
[2017-08-14] MEDS: DIVALPROEX 125 MG CAP.SPRINK PO SCH ×3 (07:55→19:55)
[2017-08-14] MEDS: SPIRONOLACTONE 25 MG TABLET PO SCH (07:56)
[2017-08-14] MEDS: APIXABAN 2.5 MG TABLET PO SCH ×2 (07:56→19:55)
[2017-08-14] MEDS: risperiDONE ORAL 1 MG/ML 30ml BOTTLE. SL SCH (07:58)
[2017-08-14 16:35] VITALS: BP 122/80
[2017-08-14] MEDS: traZODone 50 MG TABLET. PO SCH (19:55)
[2017-08-14] MEDS: AMITRIPTYLINE HCL 25 MG TABLET PO SCH (19:55)
--- NOTE | 2017-08-14 20:09 | PDOC ---
Exam Note: Michi Note: Please also refer to the separate dictated note~for this date of service dictated separately.~Patient seen individually. Discussed the patient with Nursing staff reviewed the chart.~Reviewed interim history and current functioning. Reviewed vital signs,~Labs/ Radiology~and current medications noted below. Continue current treatment with the changes noted in the dictated addendum note Assessment: Vital Signs: Vital Signs Date Time Temp Pulse Resp B/P (MAP) Pulse Ox O2 Delivery O2 Flow Rate FiO2 08/14/17 16:56 84 122/80 08/14/17 16:35 97.8 19 99 08/12/17 16:49 Room Air I&O Intake and Output 08/14/17 07:00 Intake Total 700 ml Balance 700 ml Intake Oral 700 ml # Voids 1 Current Medications: Meds: Current Medications Alprazolam (Xanax) 0.25 mg PRN QHS PRN PO ANXIETY / AGITATION Last administered on 08/10/17at 12:02; Start 07/24/17 at 02:30 Divalproex Sodium (Depakote Sprinkles) 125 mg BID PO Last administered on at 10:54; Start 07/24/17 at 02:30; Stop 07/24/17 at 19:23; Status DC Nortriptyline HCl (Pamelor) 10 mg QHS PO Last administered on 07/24/17at 02:31; Start 07/24/17 at 02:30; Stop 07/24/17 at 19:23; Status DC Rivastigmine (Exelon) 1 patch DAILY TD Last administered on 07/26/17at 14:10; Start 07/24/17 at 09:00; Stop 07/26/17 at 18:24; Status DC Apixaban (Eliquis) 2.5 mg BID PO Last administered on 08/14/17at 19:55; Start 05/29 at 09:00 Lisinopril (Prinivil) 2.5 mg DAILY PO Last administered on 07/31/17at 10:01; Start 07/24/17 at 09:00; Stop 08/01/17 at 10:51; Status DC Senna/Docusate Sodium (Senna Plus) 1 tab PRN QHS PRN PO CONSTIPATION; Start 05/29 at 08:15 Spironolactone (Aldactone) 25 mg DAILY PO Last administered on 08/14/17 07:56; Start 07/24/17 at 09:00 Carvedilol (Coreg) 25 mg BIDWMEALS PO Last administered on 07/31/17at 17:39; Start 07/24/17 at 08:00; Stop 08/01/17 at 10:51; Status DC Nitroglycerin (Nitrostat) 0.4 mg PRN Q5MIN PRN SL CHEST PAIN; Start 07/24/17 at 08:15 Divalproex Sodium (Depakote Sprinkles) 125 mg TID@0900,1700,2100 PO Last administered on 07/27/17at 08:00; Start 07/24/17 at 21:00; Stop 07/27/17 at 11:48 ; Status DC Mirtazapine (Remeron) 7.5 mg QHS PO ; Start 07/24/17 at 21:00; Stop 07/26/17 at 18:24; Status DC Trazodone HCl (Desyrel) 50 mg QHS PO Last administered on 08/14/17at 19:55; Start 07/25/17 at 21:00 Trazodone HCl (Desyrel) 50 mg PRN QHS PRN PO insomnia Last administered on at 22:56; Start 07/25/17 at 19:15 Mirtazapine (Remeron) 15 mg QHS PO Last administered on 07/26/17at 23:39; Start 07/26/17 at 21:00; Stop 07/27/17 at 11:48; Status DC Risperidone (RisperDAL) 0.25 mg DAILY SL Last administered on 08/14/17at 07:58; Start 07/27/17 at 09:00 Divalproex Sodium (Depakote Sprinkles) 250 mg TID@0900,1700,2100 PO Last administered on 08/02/17at 16:45; Start 07/27/17 at 17:00; Stop 08/02/17 at 18:53 ; Status DC Amitriptyline HCl (Elavil) 25 mg QHS PO Last administered on 08/14/17 19:55; Start 07/27/17 at 21:00 Olanzapine (ZyPREXA ZYDIS) 5 mg 1X ONCE PO ; Start 07/27/17 at 19:00; Stop at 23:17; Status DC Olanzapine (ZyPREXA ZYDIS) 5 mg 1X ONCE PO ; Start 07/27/17 at 19:00; Stop at 23:17; Status DC Olanzapine (ZyPREXA ZYDIS) 5 mg 1X ONCE PO Last administered on 07/28/17at 08: 46; Start 07/28/17 at 08:00; Stop 07/28/17 at 08:01; Status DC Olanzapine (ZyPREXA ZYDIS) 5 mg 1X ONCE PO Last administered on 07/28/17at 09: 00; Start 07/28/17 at 09:00; Stop 07/28/17 at 09:01; Status DC Carvedilol (Coreg) 6.25 mg BIDWMEALS PO Last administered on 08/14/17at 16:56; Start 08/01/17 at 17:00 Divalproex Sodium (Depakote Sprinkles) 375 mg BID@0900,2100 PO Last administered on 08/14/17at 19:55; Start 08/02/17 at 21:00 Divalproex Sodium (Depakote Sprinkles) 250 mg 1700 PO Last administered on 16:56; Start 08/03/17 at 17:00 Vitamin D (Vitamin D3) 50,000 unit WEEKLY PO Last administered on 08/08/17at 20: 06; Start 08/08/17 at 18:00 Fluvoxamine Maleate (Luvox) 25 mg HS PO Last administered on 08/14/17at 19:56; Start 08/14/17 at 21:00 Active Scripts Active Reported Senna Plus Tablet (Sennosides/Docusate Sodium) 1 Each Tablet 1 Tab PO PRN QHS PRN Nitrostat (Nitroglycerin) 0.3 Mg Tab.subl 0.3 Mg SL PRN Q5MIN PRN MDD 3 doses in 15 minutes Alprazolam 0.25 Mg Tablet 0.25 Mg PO PRN QHS PRN Spironolactone 25 Mg Tablet 25 Mg PO DAILY EXELON 4.6mg/24hr (Rivastigmine) 1 Each Patch.td24 1 Patch TD DAILY Nortriptyline Hcl 10 Mg Capsule 10 Mg PO QHS Lisinopril 2.5 Mg Tablet 2.5 Mg PO DAILY Eliquis (Apixaban) 2.5 Mg Tablet 2.5 Mg PO BID Depakote Sprinkle (Divalproex Sodium) 125 Mg Cap.sprink 125 Mg PO BID Coreg (Carvedilol) 25 Mg Tablet 25 Mg PO BIDWMEALS I have reviewed the current psychotropics carefully including drug interactions. Risk benefit ratio favors no change other than as noted in my dictated progress note. 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
[2017-08-15 06:18] VITALS: BP 127/70
--- NOTE | 2017-08-15 06:41 | PN ---
DATE: 08/13/2017 This late entry 08/13/2017 covers elements not covered in my initial note 08/13/2017. Met with the patient the evening of 08/13/2017. The patient has been somewhat resistive to medications. Slept 7-1/4 hours. Valproic acid level is 74. He took some of the meds and ice cream. Son came at 4:00 p.m. The patient was talking about packing his boxes, confused. REVIEW OF SYSTEMS: No CV, , pulmonary, eye, ENT system symptoms on review. Reliability poor. MENTAL STATUS EXAM: Oriented to himself. Insight, judgment, recent and remote memory, attention, concentration, fund of knowledge poor, consistent with his diagnosis mentioned in my initial note. IMPRESSION: Major neurocognitive disorder, traumatic, vascular with depression, delusion, behavioral disturbance. Rest unchanged. PLAN: Continue psychotropics mentioned in my initial note. Adjust as clinically indicated. MAN Yamel GALVEZ MD DR: MITCHELL/julio c JOB#: [id number] / [id number]
[2017-08-15] MEDS: CARVEDILOL 6.25 MG TABLET PO SCH ×2 (07:10→16:56)
[2017-08-15] MEDS: DIVALPROEX 125 MG CAP.SPRINK PO SCH ×3 (07:10→20:52)
[2017-08-15] MEDS: SPIRONOLACTONE 25 MG TABLET PO SCH (07:10)
[2017-08-15] MEDS: APIXABAN 2.5 MG TABLET PO SCH ×2 (07:10→20:53)
[2017-08-15] MEDS: risperiDONE ORAL 1 MG/ML 30ml BOTTLE. SL SCH (07:12)
[2017-08-15] MEDS: CHOLECALCIFEROL (VITAMIN D3) 50,000 UNIT CAPSULE PO SCH (07:12)
[2017-08-15 16:01] VITALS: BP 117/75
--- NOTE | 2017-08-15 20:02 | PDOC ---
Exam Note: Michi Note: Please also refer to the separate dictated note~for this date of service dictated separately.~Patient seen individually. Discussed the patient with Nursing staff reviewed the chart.~Reviewed interim history and current functioning. Reviewed vital signs,~Labs/ Radiology~and current medications noted below. Continue current treatment with the changes noted in the dictated addendum note Assessment: Vital Signs: Vital Signs Date Time Temp Pulse Resp B/P (MAP) Pulse Ox O2 Delivery O2 Flow Rate FiO2 08/15/17 16:56 80 117/75 08/15/17 16:01 97.8 16 99 08/12/17 16:49 Room Air I&O Intake and Output 08/15/17 07:00 Intake Total 960 ml Balance 960 ml Intake Oral 960 ml # Voids 1 # Bowel Movements 1 Current Medications: Meds: Current Medications Alprazolam (Xanax) 0.25 mg PRN QHS PRN PO ANXIETY / AGITATION Last administered on 08/10/17at 12:02; Start 07/24/17 at 02:30 Divalproex Sodium (Depakote Sprinkles) 125 mg BID PO Last administered on at 10:54; Start 07/24/17 at 02:30; Stop 07/24/17 at 19:23; Status DC Nortriptyline HCl (Pamelor) 10 mg QHS PO Last administered on 07/24/17at 02:31; Start 07/24/17 at 02:30; Stop 07/24/17 at 19:23; Status DC Rivastigmine (Exelon) 1 patch DAILY TD Last administered on 07/26/17at 14:10; Start 07/24/17 at 09:00; Stop 07/26/17 at 18:24; Status DC Apixaban (Eliquis) 2.5 mg BID PO Last administered on 08/15/17at 07:10; Start 05/29 at 09:00 Lisinopril (Prinivil) 2.5 mg DAILY PO Last administered on 07/31/17at 10:01; Start 07/24/17 at 09:00; Stop 08/01/17 at 10:51; Status DC Senna/Docusate Sodium (Senna Plus) 1 tab PRN QHS PRN PO CONSTIPATION; Start 05/29 at 08:15 Spironolactone (Aldactone) 25 mg DAILY PO Last administered on 08/15/17at 07:10; Start 07/24/17 at 09:00 Carvedilol (Coreg) 25 mg BIDWMEALS PO Last administered on 07/31/17at 17:39; Start 07/24/17 at 08:00; Stop 08/01/17 at 10:51; Status DC Nitroglycerin (Nitrostat) 0.4 mg PRN Q5MIN PRN SL CHEST PAIN; Start 07/24/17 at 08:15 Divalproex Sodium (Depakote Sprinkles) 125 mg TID@0900,1700,2100 PO Last administered on 07/27/17at 08:00; Start 07/24/17 at 21:00; Stop 07/27/17 at 11:48 ; Status DC Mirtazapine (Remeron) 7.5 mg QHS PO ; Start 07/24/17 at 21:00; Stop 07/26/17 at 18:24; Status DC Trazodone HCl (Desyrel) 50 mg QHS PO Last administered on 08/14/17at 19:55; Start 07/25/17 at 21:00 Trazodone HCl (Desyrel) 50 mg PRN QHS PRN PO insomnia Last administered on at 22:56; Start 07/25/17 at 19:15 Mirtazapine (Remeron) 15 mg QHS PO Last administered on 07/26/17at 23:39; Start 07/26/17 at 21:00; Stop 07/27/17 at 11:48; Status DC Risperidone (RisperDAL) 0.25 mg DAILY SL Last administered on 08/15/17at 07:12; Start 07/27/17 at 09:00 Divalproex Sodium (Depakote Sprinkles) 250 mg TID@0900,1700,2100 PO Last administered on 08/02/17at 16:45; Start 07/27/17 at 17:00; Stop 08/02/17 at 18:53 ; Status DC Amitriptyline HCl (Elavil) 25 mg QHS PO Last administered on 08/14/17at 19:55; Start 07/27/17 at 21:00 Olanzapine (ZyPREXA ZYDIS) 5 mg 1X ONCE PO ; Start 07/27/17 at 19:00; Stop at 23:17; Status DC Olanzapine (ZyPREXA ZYDIS) 5 mg 1X ONCE PO ; Start 07/27/17 at 19:00; Stop at 23:17; Status DC Olanzapine (ZyPREXA ZYDIS) 5 mg 1X ONCE PO Last administered on 07/28/17at 08: 46; Start 07/28/17 at 08:00; Stop 07/28/17 at 08:01; Status DC Olanzapine (ZyPREXA ZYDIS) 5 mg 1X ONCE PO Last administered on 07/28/17at 09: 00; Start 07/28/17 at 09:00; Stop 07/28/17 at 09:01; Status DC Carvedilol (Coreg) 6.25 mg BIDWMEALS PO Last administered on 08/15/17 16:56; Start 08/01/17 at 17:00 Divalproex Sodium (Depakote Sprinkles) 375 mg BID@0900,2100 PO Last administered on 08/15/17at 07:10; Start 08/02/17 at 21:00 Divalproex Sodium (Depakote Sprinkles) 250 mg 1700 PO Last administered on 16:56; Start 08/03/17 at 17:00 Vitamin D (Vitamin D3) 50,000 unit WEEKLY PO Last administered on 08/15/17at 07: 12; Start 08/08/17 at 18:00 Fluvoxamine Maleate (Luvox) 25 mg HS PO Last administered on 08/14/17at 19:56; Start 08/14/17 at 21:00 Active Scripts Active Reported Senna Plus Tablet (Sennosides/Docusate Sodium) 1 Each Tablet 1 Tab PO PRN QHS PRN Nitrostat (Nitroglycerin) 0.3 Mg Tab.subl 0.3 Mg SL PRN Q5MIN PRN MDD 3 doses in 15 minutes Alprazolam 0.25 Mg Tablet 0.25 Mg PO PRN QHS PRN Spironolactone 25 Mg Tablet 25 Mg PO DAILY EXELON 4.6mg/24hr (Rivastigmine) 1 Each Patch.td24 1 Patch TD DAILY Nortriptyline Hcl 10 Mg Capsule 10 Mg PO QHS Lisinopril 2.5 Mg Tablet 2.5 Mg PO DAILY Eliquis (Apixaban) 2.5 Mg Tablet 2.5 Mg PO BID Depakote Sprinkle (Divalproex Sodium) 125 Mg Cap.sprink 125 Mg PO BID Coreg (Carvedilol) 25 Mg Tablet 25 Mg PO BIDWMEALS I have reviewed the current psychotropics carefully including drug interactions. Risk benefit ratio favors no change other than as noted in my dictated progress note. 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
[2017-08-15] MEDS: traZODone 50 MG TABLET. PO SCH (21:06)
[2017-08-15] MEDS: AMITRIPTYLINE HCL 25 MG TABLET PO SCH (21:06)
--- NOTE | 2017-08-15 21:39 | PN ---
DATE: 08/14/2017 PSYCHIATRIC PROGRESS NOTE This is a late entry 08/14/2017, covers elements not covered in my initial note of 08/14/2017. I met with the patient evening of 08/14/2017. The patient slept 6-1/4 hours, seems more confused, delusional, talking about boxes, repeatedly obsessed about this, wanting to keep them balanced. He slept in the afternoon, then was a little better, then agitated later. REVIEW OF SYSTEMS: No CV, , pulmonary, eye, ENT system symptoms on review. Reliability poor. MENTAL STATUS EXAM: Oriented to himself. Insight, judgment, recent and remote memory, attention, concentration, fund of knowledge poor, consistent with his diagnosis mentioned in my initial note. PLAN: He is quite obsessive, repetitive. We will start Luvox 25 mg at bedtime. Rest we will continue unchanged according to initial note. LUIS CARLOS GALVEZ MD DR: MITCHELL/julio c JOB#: [id number] / [id number]
[2017-08-15] MEDS: traZODone 50 MG TABLET. PO PRN (23:40)
[2017-08-16 06:35] VITALS: BP 142/80
[2017-08-16] MEDS: DIVALPROEX 125 MG CAP.SPRINK PO SCH ×3 (09:03→20:42)
[2017-08-16] MEDS: CARVEDILOL 6.25 MG TABLET PO SCH ×2 (09:03→17:00)
[2017-08-16] MEDS: SPIRONOLACTONE 25 MG TABLET PO SCH (09:03)
[2017-08-16] MEDS: APIXABAN 2.5 MG TABLET PO SCH ×2 (09:03→20:42)
[2017-08-16] MEDS: risperiDONE ORAL 1 MG/ML 30ml BOTTLE. SL SCH (09:06)
[2017-08-16 16:28] VITALS: BP 115/75
--- NOTE | 2017-08-16 20:07 | PDOC ---
Exam Note: Michi Note: Please also refer to the separate dictated note~for this date of service dictated separately.~Patient seen individually. Discussed the patient with Nursing staff reviewed the chart.~Reviewed interim history and current functioning. Reviewed vital signs,~Labs/ Radiology~and current medications noted below. Continue current treatment with the changes noted in the dictated addendum note Assessment: Vital Signs: Vital Signs Date Time Temp Pulse Resp B/P (MAP) Pulse Ox O2 Delivery O2 Flow Rate FiO2 08/16/17 17:00 76 115/75 08/16/17 16:28 97.1 17 98 08/12/17 16:49 Room Air I&O Intake and Output 08/16/17 07:00 Intake Total 700 ml Balance 700 ml Intake Oral 700 ml # Voids 2 Current Medications: Meds: Current Medications Alprazolam (Xanax) 0.25 mg PRN QHS PRN PO ANXIETY / AGITATION Last administered on 08/10/17at 12:02; Start 07/24/17 at 02:30 Divalproex Sodium (Depakote Sprinkles) 125 mg BID PO Last administered on at 10:54; Start 07/24/17 at 02:30; Stop 07/24/17 at 19:23; Status DC Nortriptyline HCl (Pamelor) 10 mg QHS PO Last administered on 07/24/17at 02:31; Start 07/24/17 at 02:30; Stop 07/24/17 at 19:23; Status DC Rivastigmine (Exelon) 1 patch DAILY TD Last administered on 07/26/17at 14:10; Start 07/24/17 at 09:00; Stop 07/26/17 at 18:24; Status DC Apixaban (Eliquis) 2.5 mg BID PO Last administered on 08/16/17at 09:03; Start 05/29 at 09:00 Lisinopril (Prinivil) 2.5 mg DAILY PO Last administered on 07/31/17at 10:01; Start 07/24/17 at 09:00; Stop 08/01/17 at 10:51; Status DC Senna/Docusate Sodium (Senna Plus) 1 tab PRN QHS PRN PO CONSTIPATION; Start 05/29 at 08:15 Spironolactone (Aldactone) 25 mg DAILY PO Last administered on 08/16/17 09:03; Start 07/24/17 at 09:00 Carvedilol (Coreg) 25 mg BIDWMEALS PO Last administered on 07/31/17at 17:39; Start 07/24/17 at 08:00; Stop 08/01/17 at 10:51; Status DC Nitroglycerin (Nitrostat) 0.4 mg PRN Q5MIN PRN SL CHEST PAIN; Start 07/24/17 at 08:15 Divalproex Sodium (Depakote Sprinkles) 125 mg TID@0900,1700,2100 PO Last administered on 07/27/17at 08:00; Start 07/24/17 at 21:00; Stop 07/27/17 at 11:48 ; Status DC Mirtazapine (Remeron) 7.5 mg QHS PO ; Start 07/24/17 at 21:00; Stop 07/26/17 at 18:24; Status DC Trazodone HCl (Desyrel) 50 mg QHS PO Last administered on 08/15/17at 21:06; Start 07/25/17 at 21:00 Trazodone HCl (Desyrel) 50 mg PRN QHS PRN PO insomnia Last administered on 08/15at 23:40; Start 07/25/17 at 19:15 Mirtazapine (Remeron) 15 mg QHS PO Last administered on 07/26/17at 23:39; Start 07/26/17 at 21:00; Stop 07/27/17 at 11:48; Status DC Risperidone (RisperDAL) 0.25 mg DAILY SL Last administered on 08/16/17at 09:06; Start 07/27/17 at 09:00 Divalproex Sodium (Depakote Sprinkles) 250 mg TID@0900,1700,2100 PO Last administered on 08/02/17at 16:45; Start 07/27/17 at 17:00; Stop 08/02/17 at 18:53 ; Status DC Amitriptyline HCl (Elavil) 25 mg QHS PO Last administered on 08/15/17 21:06; Start 07/27/17 at 21:00 Olanzapine (ZyPREXA ZYDIS) 5 mg 1X ONCE PO ; Start 07/27/17 at 19:00; Stop at 23:17; Status DC Olanzapine (ZyPREXA ZYDIS) 5 mg 1X ONCE PO ; Start 07/27/17 at 19:00; Stop at 23:17; Status DC Olanzapine (ZyPREXA ZYDIS) 5 mg 1X ONCE PO Last administered on 07/28/17at 08: 46; Start 07/28/17 at 08:00; Stop 07/28/17 at 08:01; Status DC Olanzapine (ZyPREXA ZYDIS) 5 mg 1X ONCE PO Last administered on 07/28/17at 09: 00; Start 07/28/17 at 09:00; Stop 07/28/17 at 09:01; Status DC Carvedilol (Coreg) 6.25 mg BIDWMEALS PO Last administered on 08/16/17at 09:03; Start 08/01/17 at 17:00 Divalproex Sodium (Depakote Sprinkles) 375 mg BID@0900,2100 PO Last administered on 08/16/17at 09:03; Start 08/02/17 at 21:00 Divalproex Sodium (Depakote Sprinkles) 250 mg 1700 PO Last administered on at 16:56; Start 08/03/17 at 17:00 Vitamin D (Vitamin D3) 50,000 unit WEEKLY PO Last administered on 08/15/17at 07: 12; Start 08/08/17 at 18:00 Fluvoxamine Maleate (Luvox) 25 mg HS PO Last administered on 08/15/17at 20:53; Start 08/14/17 at 21:00 Active Scripts Active Reported Senna Plus Tablet (Sennosides/Docusate Sodium) 1 Each Tablet 1 Tab PO PRN QHS PRN Nitrostat (Nitroglycerin) 0.3 Mg Tab.subl 0.3 Mg SL PRN Q5MIN PRN MDD 3 doses in 15 minutes Alprazolam 0.25 Mg Tablet 0.25 Mg PO PRN QHS PRN Spironolactone 25 Mg Tablet 25 Mg PO DAILY EXELON 4.6mg/24hr (Rivastigmine) 1 Each Patch.td24 1 Patch TD DAILY Nortriptyline Hcl 10 Mg Capsule 10 Mg PO QHS Lisinopril 2.5 Mg Tablet 2.5 Mg PO DAILY Eliquis (Apixaban) 2.5 Mg Tablet 2.5 Mg PO BID Depakote Sprinkle (Divalproex Sodium) 125 Mg Cap.sprink 125 Mg PO BID Coreg (Carvedilol) 25 Mg Tablet 25 Mg PO BIDWMEALS I have reviewed the current psychotropics carefully including drug interactions. Risk benefit ratio favors no change other than as noted in my dictated progress note. 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
--- NOTE | 2017-08-16 20:37 | PN ---
DATE: 08/15/2017 This is a late entry 08/15/2017 covers elements not covered in my initial note 08/15/2017. I met with the patient evening of 08/15/2017. The patient slept 6-3/4 hours previous evening. In the morning, he was fixated on boxes and going to work which is a preoccupation he gets from time to time. He got his meds and then was tired, slept, woke up calmer after the Depakote. The Depakote helps him with his mood lability, but makes him somewhat tired. We will monitor this. REVIEW OF SYSTEMS: No CV, , pulmonary, eye, ENT system symptoms on review. Reliability poor. MENTAL STATUS EXAM: Oriented to himself. Insight, judgment, recent and remote memory, attention, concentration, fund of knowledge poor, consistent with his diagnosis mentioned in my initial note. IMPRESSION: Major neurocognitive disorder, Alzheimer, vascular with depression, delusion, behavioral disturbance. Rest unchanged. Valproic acid level therapeutic. Continue psychotropics mentioned in my initial note, may need to reduce if he is overly sedated. MAN Yamel GALVEZ MD DR: MITCHELL/julio c JOB#: [id number] / [id number]
[2017-08-16] MEDS: AMITRIPTYLINE HCL 25 MG TABLET PO SCH (20:43)
[2017-08-16] MEDS: traZODone 50 MG TABLET. PO SCH (20:43)
[2017-08-16] MEDS: traZODone 50 MG TABLET. PO PRN (23:56)
[2017-08-17 06:24] VITALS: BP 120/79
[2017-08-17] MEDS: APIXABAN 2.5 MG TABLET PO SCH ×2 (08:44→20:45)
[2017-08-17] MEDS: CARVEDILOL 6.25 MG TABLET PO SCH ×2 (08:45→17:52)
[2017-08-17] MEDS: DIVALPROEX 125 MG CAP.SPRINK PO SCH ×3 (08:45→20:45)
[2017-08-17] MEDS: SPIRONOLACTONE 25 MG TABLET PO SCH (08:45)
[2017-08-17] MEDS: risperiDONE ORAL 1 MG/ML 30ml BOTTLE. SL SCH (08:46)
[2017-08-17 16:26] VITALS: BP 117/67
--- NOTE | 2017-08-17 20:12 | PDOC ---
Exam Note: Michi Note: Please also refer to the separate dictated note~for this date of service dictated separately.~Patient seen individually. Discussed the patient with Nursing staff reviewed the chart.~Reviewed interim history and current functioning. Reviewed vital signs,~Labs/ Radiology~and current medications noted below. Continue current treatment with the changes noted in the dictated addendum note Assessment: Vital Signs: Vital Signs Date Time Temp Pulse Resp B/P (MAP) Pulse Ox O2 Delivery O2 Flow Rate FiO2 08/17/17 17:52 76 117/67 08/17/17 16:26 97.9 20 97 08/12/17 16:49 Room Air I&O Intake and Output 08/17/17 07:00 Intake Total 600 ml Balance 600 ml Intake Oral 600 ml # Voids 2 Current Medications: Meds: Current Medications Alprazolam (Xanax) 0.25 mg PRN QHS PRN PO ANXIETY / AGITATION Last administered on 08/10/17at 12:02; Start 07/24/17 at 02:30 Divalproex Sodium (Depakote Sprinkles) 125 mg BID PO Last administered on at 10:54; Start 07/24/17 at 02:30; Stop 07/24/17 at 19:23; Status DC Nortriptyline HCl (Pamelor) 10 mg QHS PO Last administered on 07/24/17at 02:31; Start 07/24/17 at 02:30; Stop 07/24/17 at 19:23; Status DC Rivastigmine (Exelon) 1 patch DAILY TD Last administered on 07/26/17at 14:10; Start 07/24/17 at 09:00; Stop 07/26/17 at 18:24; Status DC Apixaban (Eliquis) 2.5 mg BID PO Last administered on 08/17/17at 08:44; Start 05/29 at 09:00 Lisinopril (Prinivil) 2.5 mg DAILY PO Last administered on 07/31/17at 10:01; Start 07/24/17 at 09:00; Stop 08/01/17 at 10:51; Status DC Senna/Docusate Sodium (Senna Plus) 1 tab PRN QHS PRN PO CONSTIPATION; Start 05/29 at 08:15 Spironolactone (Aldactone) 25 mg DAILY PO Last administered on 08/17/17 08:45; Start 07/24/17 at 09:00 Carvedilol (Coreg) 25 mg BIDWMEALS PO Last administered on 07/31/17at 17:39; Start 07/24/17 at 08:00; Stop 08/01/17 at 10:51; Status DC Nitroglycerin (Nitrostat) 0.4 mg PRN Q5MIN PRN SL CHEST PAIN; Start 07/24/17 at 08:15 Divalproex Sodium (Depakote Sprinkles) 125 mg TID@0900,1700,2100 PO Last administered on 07/27/17at 08:00; Start 07/24/17 at 21:00; Stop 07/27/17 at 11:48 ; Status DC Mirtazapine (Remeron) 7.5 mg QHS PO ; Start 07/24/17 at 21:00; Stop 07/26/17 at 18:24; Status DC Trazodone HCl (Desyrel) 50 mg QHS PO Last administered on 08/16/17at 20:43; Start 07/25/17 at 21:00 Trazodone HCl (Desyrel) 50 mg PRN QHS PRN PO insomnia Last administered on 08/16 23:56; Start 07/25/17 at 19:15 Mirtazapine (Remeron) 15 mg QHS PO Last administered on 07/26/17at 23:39; Start 07/26/17 at 21:00; Stop 07/27/17 at 11:48; Status DC Risperidone (RisperDAL) 0.25 mg DAILY SL Last administered on 08/17/17at 08:46; Start 07/27/17 at 09:00 Divalproex Sodium (Depakote Sprinkles) 250 mg TID@0900,1700,2100 PO Last administered on 08/02/17at 16:45; Start 07/27/17 at 17:00; Stop 08/02/17 at 18:53 ; Status DC Amitriptyline HCl (Elavil) 25 mg QHS PO Last administered on 08/16/17 20:43; Start 07/27/17 at 21:00 Olanzapine (ZyPREXA ZYDIS) 5 mg 1X ONCE PO ; Start 07/27/17 at 19:00; Stop at 23:17; Status DC Olanzapine (ZyPREXA ZYDIS) 5 mg 1X ONCE PO ; Start 07/27/17 at 19:00; Stop at 23:17; Status DC Olanzapine (ZyPREXA ZYDIS) 5 mg 1X ONCE PO Last administered on 07/28/17at 08: 46; Start 07/28/17 at 08:00; Stop 07/28/17 at 08:01; Status DC Olanzapine (ZyPREXA ZYDIS) 5 mg 1X ONCE PO Last administered on 07/28/17at 09: 00; Start 07/28/17 at 09:00; Stop 07/28/17 at 09:01; Status DC Carvedilol (Coreg) 6.25 mg BIDWMEALS PO Last administered on 08/17/17at 17:52; Start 08/01/17 at 17:00 Divalproex Sodium (Depakote Sprinkles) 375 mg BID@0900,2100 PO Last administered on 08/17/17at 08:45; Start 08/02/17 at 21:00 Divalproex Sodium (Depakote Sprinkles) 250 mg 1700 PO Last administered on at 17:52; Start 08/03/17 at 17:00 Vitamin D (Vitamin D3) 50,000 unit WEEKLY PO Last administered on 08/15/17at 07: 12; Start 08/08/17 at 18:00 Fluvoxamine Maleate (Luvox) 25 mg HS PO Last administered on 08/16/17at 20:42; Start 08/14/17 at 21:00; Stop 08/17/17 at 12:50; Status DC Fluvoxamine Maleate (Luvox) 50 mg HS PO ; Start 08/17/17 at 21:00 Active Scripts Active Reported Senna Plus Tablet (Sennosides/Docusate Sodium) 1 Each Tablet 1 Tab PO PRN QHS PRN Nitrostat (Nitroglycerin) 0.3 Mg Tab.subl 0.3 Mg SL PRN Q5MIN PRN MDD 3 doses in 15 minutes Alprazolam 0.25 Mg Tablet 0.25 Mg PO PRN QHS PRN Spironolactone 25 Mg Tablet 25 Mg PO DAILY EXELON 4.6mg/24hr (Rivastigmine) 1 Each Patch.td24 1 Patch TD DAILY Nortriptyline Hcl 10 Mg Capsule 10 Mg PO QHS Lisinopril 2.5 Mg Tablet 2.5 Mg PO DAILY Eliquis (Apixaban) 2.5 Mg Tablet 2.5 Mg PO BID Depakote Sprinkle (Divalproex Sodium) 125 Mg Cap.sprink 125 Mg PO BID Coreg (Carvedilol) 25 Mg Tablet 25 Mg PO BIDWMEALS I have reviewed the current psychotropics carefully including drug interactions. Risk benefit ratio favors no change other than as noted in my dictated progress note. 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
[2017-08-17] MEDS: AMITRIPTYLINE HCL 25 MG TABLET PO SCH (20:45)
[2017-08-17] MEDS: traZODone 50 MG TABLET. PO SCH (20:45)
[2017-08-18] MEDS: traZODone 50 MG TABLET. PO PRN (00:13)
[2017-08-18 06:26] VITALS: BP 115/60
[2017-08-18] MEDS ORDERED: ACETAMINOPHEN 325 MG TABLET PO PRN (08:00)
[2017-08-18] MEDS: CARVEDILOL 6.25 MG TABLET PO SCH ×2 (08:02→17:28)
[2017-08-18] MEDS: DIVALPROEX 125 MG CAP.SPRINK PO SCH ×3 (08:03→19:56)
[2017-08-18] MEDS: APIXABAN 2.5 MG TABLET PO SCH ×2 (08:03→19:56)
[2017-08-18] MEDS: SPIRONOLACTONE 25 MG TABLET PO SCH (08:03)
[2017-08-18] MEDS: risperiDONE ORAL 1 MG/ML 30ml BOTTLE. SL SCH (08:04)
[2017-08-18 16:43] VITALS: BP 119/67
[2017-08-18] MEDS: AMITRIPTYLINE HCL 25 MG TABLET PO SCH (19:56)
[2017-08-18] MEDS: traZODone 50 MG TABLET. PO SCH (19:56)
--- NOTE | 2017-08-18 20:08 | PDOC ---
Exam Note: Michi Note: Please also refer to the separate dictated note~for this date of service dictated separately.~Patient seen individually. Discussed the patient with Nursing staff reviewed the chart.~Reviewed interim history and current functioning. Reviewed vital signs,~Labs/ Radiology~and current medications noted below. Continue current treatment with the changes noted in the dictated addendum note Assessment: Vital Signs: Vital Signs Date Time Temp Pulse Resp B/P (MAP) Pulse Ox O2 Delivery O2 Flow Rate FiO2 08/18/17 17:28 75 119/67 08/18/17 16:43 96.9 20 96 08/12/17 16:49 Room Air I&O Intake and Output 08/18/17 07:00 Intake Total 1140 ml Balance 1140 ml Intake Oral 1140 ml # Voids 1 Current Medications: Meds: Current Medications Alprazolam (Xanax) 0.25 mg PRN QHS PRN PO ANXIETY / AGITATION Last administered on 08/10/17at 12:02; Start 07/24/17 at 02:30 Divalproex Sodium (Depakote Sprinkles) 125 mg BID PO Last administered on at 10:54; Start 07/24/17 at 02:30; Stop 07/24/17 at 19:23; Status DC Nortriptyline HCl (Pamelor) 10 mg QHS PO Last administered on 07/24/17at 02:31; Start 07/24/17 at 02:30; Stop 07/24/17 at 19:23; Status DC Rivastigmine (Exelon) 1 patch DAILY TD Last administered on 07/26/17at 14:10; Start 07/24/17 at 09:00; Stop 07/26/17 at 18:24; Status DC Apixaban (Eliquis) 2.5 mg BID PO Last administered on 08/18/17at 19:56; Start 05/29 at 09:00 Lisinopril (Prinivil) 2.5 mg DAILY PO Last administered on 07/31/17at 10:01; Start 07/24/17 at 09:00; Stop 08/01/17 at 10:51; Status DC Senna/Docusate Sodium (Senna Plus) 1 tab PRN QHS PRN PO CONSTIPATION; Start 05/29 at 08:15 Spironolactone (Aldactone) 25 mg DAILY PO Last administered on 08/18/17 08:03; Start 07/24/17 at 09:00 Carvedilol (Coreg) 25 mg BIDWMEALS PO Last administered on 07/31/17at 17:39; Start 07/24/17 at 08:00; Stop 08/01/17 at 10:51; Status DC Nitroglycerin (Nitrostat) 0.4 mg PRN Q5MIN PRN SL CHEST PAIN; Start 07/24/17 at 08:15 Divalproex Sodium (Depakote Sprinkles) 125 mg TID@0900,1700,2100 PO Last administered on 07/27/17at 08:00; Start 07/24/17 at 21:00; Stop 07/27/17 at 11:48 ; Status DC Mirtazapine (Remeron) 7.5 mg QHS PO ; Start 07/24/17 at 21:00; Stop 07/26/17 at 18:24; Status DC Trazodone HCl (Desyrel) 50 mg QHS PO Last administered on 08/18/17at 19:56; Start 07/25/17 at 21:00 Trazodone HCl (Desyrel) 50 mg PRN QHS PRN PO insomnia Last administered on 08/18at 00:13; Start 07/25/17 at 19:15 Mirtazapine (Remeron) 15 mg QHS PO Last administered on 07/26/17at 23:39; Start 07/26/17 at 21:00; Stop 07/27/17 at 11:48; Status DC Risperidone (RisperDAL) 0.25 mg DAILY SL Last administered on 08/18/17at 08:04; Start 07/27/17 at 09:00 Divalproex Sodium (Depakote Sprinkles) 250 mg TID@0900,1700,2100 PO Last administered on 08/02/17at 16:45; Start 07/27/17 at 17:00; Stop 08/02/17 at 18:53 ; Status DC Amitriptyline HCl (Elavil) 25 mg QHS PO Last administered on 08/18/17 19:56; Start 07/27/17 at 21:00 Olanzapine (ZyPREXA ZYDIS) 5 mg 1X ONCE PO ; Start 07/27/17 at 19:00; Stop at 23:17; Status DC Olanzapine (ZyPREXA ZYDIS) 5 mg 1X ONCE PO ; Start 07/27/17 at 19:00; Stop at 23:17; Status DC Olanzapine (ZyPREXA ZYDIS) 5 mg 1X ONCE PO Last administered on 07/28/17at 08: 46; Start 07/28/17 at 08:00; Stop 07/28/17 at 08:01; Status DC Olanzapine (ZyPREXA ZYDIS) 5 mg 1X ONCE PO Last administered on 07/28/17at 09: 00; Start 07/28/17 at 09:00; Stop 07/28/17 at 09:01; Status DC Carvedilol (Coreg) 6.25 mg BIDWMEALS PO Last administered on 08/18/17 17:28; Start 08/01/17 at 17:00 Divalproex Sodium (Depakote Sprinkles) 375 mg BID@0900,2100 PO Last administered on 08/18/17 19:56; Start 08/02/17 at 21:00 Divalproex Sodium (Depakote Sprinkles) 250 mg 1700 PO Last administered on 17:28; Start 08/03/17 at 17:00 Vitamin D (Vitamin D3) 50,000 unit WEEKLY PO Last administered on 08/15/17 07: 12; Start 08/08/17 at 18:00 Fluvoxamine Maleate (Luvox) 25 mg HS PO Last administered on 08/16/17at 20:42; Start 08/14/17 at 21:00; Stop 08/17/17 at 12:50; Status DC Fluvoxamine Maleate (Luvox) 50 mg HS PO Last administered on 08/18/17 19:56; Start 08/17/17 at 21:00 Acetaminophen (Tylenol) 650 mg PRN Q6HRS PRN PO PAIN / TEMP; Start 08/18/17 at 08:00 Active Scripts Active Reported Senna Plus Tablet (Sennosides/Docusate Sodium) 1 Each Tablet 1 Tab PO PRN QHS PRN Nitrostat (Nitroglycerin) 0.3 Mg Tab.subl 0.3 Mg SL PRN Q5MIN PRN MDD 3 doses in 15 minutes Alprazolam 0.25 Mg Tablet 0.25 Mg PO PRN QHS PRN Spironolactone 25 Mg Tablet 25 Mg PO DAILY EXELON 4.6mg/24hr (Rivastigmine) 1 Each Patch.td24 1 Patch TD DAILY Nortriptyline Hcl 10 Mg Capsule 10 Mg PO QHS Lisinopril 2.5 Mg Tablet 2.5 Mg PO DAILY Eliquis (Apixaban) 2.5 Mg Tablet 2.5 Mg PO BID Depakote Sprinkle (Divalproex Sodium) 125 Mg Cap.sprink 125 Mg PO BID Coreg (Carvedilol) 25 Mg Tablet 25 Mg PO BIDWMEALS I have reviewed the current psychotropics carefully including drug interactions. Risk benefit ratio favors no change other than as noted in my dictated progress note. 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
[2017-08-18] MEDS: ALPRAZolam 0.25 MG TABLET PO PRN (20:49)
--- NOTE | 2017-08-18 21:32 | PN ---
DATE: 08/16/2017 This is a late entry, 08/16/2017, covers the elements not covered in my initial note, 08/16/2017. SUBJECTIVE: I met with the patient in the evening of 08/16/2017. The patient slept 4 hours previous evening, was up and down all night, restless, anxious, received trazodone x 2, drowsy or early mornings and towards the evening hours, and Depakote was held. REVIEW OF SYSTEMS: No CV, , pulmonary, eye, ENT system symptoms on review. Reliability poor. MENTAL STATUS EXAM: Oriented to himself. Insight, judgment, recent and remote memory, fund of knowledge poor, consistent with his diagnosis as mentioned in my initial note. PLAN: Continue psychotropics as mentioned in my initial note. Hold Depakote if over sedated. Valproic acid level therapeutic at 74. MAN Yamel GALVEZ MD DR: MITCHELL/julio c JOB#: [id number] / [id number]
--- NOTE | 2017-08-18 23:54 | PN ---
DATE: 08/17/2017 This is a late entry for 08/17/2017 covers elements not covered in my initial note of 08/17/2017. SUBJECTIVE: I met with the patient in the evening of 08/17/2017 and staffed at a treatment team meeting with the entire team morning of 08/17/2017. The patient's daughter, Cindy attended the conference. Reviewed the patient's history, placement options. Sleeping 3-6 hours, slept 3-1/2 hours previous evening. Appetite 60%, wandering at night, checking doors, takes his medications hidden, sit to attend groups, poor attention span. REVIEW OF SYSTEMS: No CV, , pulmonary, eye, ENT system symptoms on review. Reliability poor. MENTAL STATUS EXAM: Oriented to himself. Insight, judgment, recent and remote memory, attention, concentration, fund of knowledge poor, consistent with his diagnosis mentioned in my initial note. PLAN: Continue psychotropics mentioned in my initial note. Increase Luvox to 50 mg p.o. at bedtime to help with his OCD symptoms. Adjust as clinically indicated. LUIS CARLOS GALVEZ MD DR: MITCHELL/julio c JOB#: [id number] / [id number]
[2017-08-19 07:24] VITALS: BP 154/79
[2017-08-19] MEDS: SPIRONOLACTONE 25 MG TABLET PO SCH (07:34)
[2017-08-19] MEDS: CARVEDILOL 6.25 MG TABLET PO SCH ×2 (07:34→18:08)
[2017-08-19] MEDS: APIXABAN 2.5 MG TABLET PO SCH ×2 (07:36→20:20)
[2017-08-19] MEDS: DIVALPROEX 125 MG CAP.SPRINK PO SCH ×3 (07:36→20:19)
[2017-08-19] MEDS: risperiDONE ORAL 1 MG/ML 30ml BOTTLE. SL SCH (07:37)
[2017-08-19 16:35] VITALS: BP 128/68
[2017-08-19] MEDS: AMITRIPTYLINE HCL 25 MG TABLET PO SCH (20:20)
[2017-08-19] MEDS: traZODone 50 MG TABLET. PO SCH (20:20)
--- NOTE | 2017-08-19 21:35 | PDOC ---
Exam Note: Michi Note: Please also refer to the separate dictated note~for this date of service dictated separately.~Patient seen individually. Discussed the patient with Nursing staff reviewed the chart.~Reviewed interim history and current functioning. Reviewed vital signs,~Labs/ Radiology~and current medications noted below. Continue current treatment with the changes noted in the dictated addendum note Assessment: Vital Signs: Vital Signs Date Time Temp Pulse Resp B/P (MAP) Pulse Ox O2 Delivery O2 Flow Rate FiO2 08/19/17 18:08 75 128/68 08/19/17 16:35 96.8 18 99 Room Air 08/19/17 07:24 97.0 I&O Intake and Output 08/19/17 07:00 Intake Total 720 ml Balance 720 ml Intake Oral 720 ml # Voids 1 Current Medications: Meds: Current Medications Alprazolam (Xanax) 0.25 mg PRN QHS PRN PO ANXIETY / AGITATION Last administered on 08/18/17at 20:49; Start 07/24/17 at 02:30 Divalproex Sodium (Depakote Sprinkles) 125 mg BID PO Last administered on at 10:54; Start 07/24/17 at 02:30; Stop 07/24/17 at 19:23; Status DC Nortriptyline HCl (Pamelor) 10 mg QHS PO Last administered on 07/24/17at 02:31; Start 07/24/17 at 02:30; Stop 07/24/17 at 19:23; Status DC Rivastigmine (Exelon) 1 patch DAILY TD Last administered on 07/26/17at 14:10; Start 07/24/17 at 09:00; Stop 07/26/17 at 18:24; Status DC Apixaban (Eliquis) 2.5 mg BID PO Last administered on 08/19/17at 20:20; Start at 09:00 Lisinopril (Prinivil) 2.5 mg DAILY PO Last administered on 07/31/17at 10:01; Start 07/24/17 at 09:00; Stop 08/01/17 at 10:51; Status DC Senna/Docusate Sodium (Senna Plus) 1 tab PRN QHS PRN PO CONSTIPATION; Start 05/29 at 08:15 Spironolactone (Aldactone) 25 mg DAILY PO Last administered on 08/19/17at 07:34 ; Start 07/24/17 at 09:00 Carvedilol (Coreg) 25 mg BIDWMEALS PO Last administered on 07/31/17at 17:39; Start 07/24/17 at 08:00; Stop 08/01/17 at 10:51; Status DC Nitroglycerin (Nitrostat) 0.4 mg PRN Q5MIN PRN SL CHEST PAIN; Start 07/24/17 at 08:15 Divalproex Sodium (Depakote Sprinkles) 125 mg TID@0900,1700,2100 PO Last administered on 07/27/17at 08:00; Start 07/24/17 at 21:00; Stop 07/27/17 at 11:48 ; Status DC Mirtazapine (Remeron) 7.5 mg QHS PO ; Start 07/24/17 at 21:00; Stop 07/26/17 at 18:24; Status DC Trazodone HCl (Desyrel) 50 mg QHS PO Last administered on 08/19/17at 20:20; Start 07/25/17 at 21:00 Trazodone HCl (Desyrel) 50 mg PRN QHS PRN PO insomnia Last administered on 08/18at 00:13; Start 07/25/17 at 19:15 Mirtazapine (Remeron) 15 mg QHS PO Last administered on 07/26/17at 23:39; Start 07/26/17 at 21:00; Stop 07/27/17 at 11:48; Status DC Risperidone (RisperDAL) 0.25 mg DAILY SL Last administered on 08/19/17at 07:37; Start 07/27/17 at 09:00 Divalproex Sodium (Depakote Sprinkles) 250 mg TID@0900,1700,2100 PO Last administered on 08/02/17at 16:45; Start 07/27/17 at 17:00; Stop 08/02/17 at 18:53 ; Status DC Amitriptyline HCl (Elavil) 25 mg QHS PO Last administered on 08/19/17at 20:20; Start 07/27/17 at 21:00 Olanzapine (ZyPREXA ZYDIS) 5 mg 1X ONCE PO ; Start 07/27/17 at 19:00; Stop at 23:17; Status DC Olanzapine (ZyPREXA ZYDIS) 5 mg 1X ONCE PO ; Start 07/27/17 at 19:00; Stop at 23:17; Status DC Olanzapine (ZyPREXA ZYDIS) 5 mg 1X ONCE PO Last administered on 07/28/17at 08: 46; Start 07/28/17 at 08:00; Stop 07/28/17 at 08:01; Status DC Olanzapine (ZyPREXA ZYDIS) 5 mg 1X ONCE PO Last administered on 07/28/17at 09: 00; Start 07/28/17 at 09:00; Stop 07/28/17 at 09:01; Status DC Carvedilol (Coreg) 6.25 mg BIDWMEALS PO Last administered on 08/19/17at 18:08; Start 08/01/17 at 17:00 Divalproex Sodium (Depakote Sprinkles) 375 mg BID@0900,2100 PO Last administered on 08/19/17at 20:19; Start 08/02/17 at 21:00 Divalproex Sodium (Depakote Sprinkles) 250 mg 1700 PO Last administered on 08/19at 18:08; Start 08/03/17 at 17:00 Vitamin D (Vitamin D3) 50,000 unit WEEKLY PO Last administered on 08/15/17at 07: 12; Start 08/08/17 at 18:00 Fluvoxamine Maleate (Luvox) 25 mg HS PO Last administered on 08/16/17at 20:42; Start 08/14/17 at 21:00; Stop 08/17/17 at 12:50; Status DC Fluvoxamine Maleate (Luvox) 50 mg HS PO Last administered on 08/19/17at 20:20; Start 08/17/17 at 21:00 Acetaminophen (Tylenol) 650 mg PRN Q6HRS PRN PO PAIN / TEMP; Start 08/18/17 at 08:00 Active Scripts Active Reported Senna Plus Tablet (Sennosides/Docusate Sodium) 1 Each Tablet 1 Tab PO PRN QHS PRN Nitrostat (Nitroglycerin) 0.3 Mg Tab.subl 0.3 Mg SL PRN Q5MIN PRN MDD 3 doses in 15 minutes Alprazolam 0.25 Mg Tablet 0.25 Mg PO PRN QHS PRN Spironolactone 25 Mg Tablet 25 Mg PO DAILY EXELON 4.6mg/24hr (Rivastigmine) 1 Each Patch.td24 1 Patch TD DAILY Nortriptyline Hcl 10 Mg Capsule 10 Mg PO QHS Lisinopril 2.5 Mg Tablet 2.5 Mg PO DAILY Eliquis (Apixaban) 2.5 Mg Tablet 2.5 Mg PO BID Depakote Sprinkle (Divalproex Sodium) 125 Mg Cap.sprink 125 Mg PO BID Coreg (Carvedilol) 25 Mg Tablet 25 Mg PO BIDWMEALS I have reviewed the current psychotropics carefully including drug interactions. Risk benefit ratio favors no change other than as noted in my dictated progress note. 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
[2017-08-20 06:34] VITALS: BP 124/69
[2017-08-20] MEDS: SPIRONOLACTONE 25 MG TABLET PO SCH (07:45)
[2017-08-20] MEDS: DIVALPROEX 125 MG CAP.SPRINK PO SCH ×3 (07:45→21:10)
[2017-08-20] MEDS: APIXABAN 2.5 MG TABLET PO SCH ×2 (07:46→21:12)
[2017-08-20] MEDS: CARVEDILOL 6.25 MG TABLET PO SCH ×2 (07:46→17:00)
[2017-08-20] MEDS: risperiDONE ORAL 1 MG/ML 30ml BOTTLE. SL SCH (07:46)
--- NOTE | 2017-08-20 14:30 | PN ---
DATE: 08/18/2017 This late entry, 08/18/2017, covers elements not covered in my initial note of 08/18/2017. SUBJECTIVE: I met with the patient the evening of 08/18/2017. The patient has been resistive with medications, takes meds with ice cream and syrup. REVIEW OF SYSTEMS: No CV, , pulmonary, eye, ENT system symptoms on review. Reliability poor. MENTAL STATUS EXAM: Oriented to himself. Insight, judgment, recent and remote memory, attention, concentration, fund of knowledge poor, consistent with his diagnosis mentioned in my initial note. PLAN: Continue current psychotropics. Encourage compliance with medications, which has been intermittently a problem. Adjust as clinically indicated. MAN Yamel GALVEZ MD DR: MITCHELL/julio c JOB#: [id number] / [id number]
[2017-08-20 16:31] VITALS: BP 123/83
--- NOTE | 2017-08-20 19:39 | PN ---
DATE: 08/19/2017 This late entry of 08/19/2017 covers the elements not covered in my initial note of 08/19/2017. HISTORY OF PRESENT ILLNESS: I met with the patient afternoon of 08/19/2017. The patient remains confused, more redirectable. REVIEW OF SYSTEMS: No CV, , pulmonary, eye, ENT system symptoms on review. Reliability poor. MENTAL STATUS EXAM: Oriented to himself. Insight, judgment, recent and remote memory, attention, concentration, fund of knowledge poor, consistent with his diagnosis mentioned in my initial note. PLAN: Continue current psychotropics. Encourage compliance. Adjust as indicated. LUIS CARLOS GALVEZ MD DR: MITCHELL/julio c JOB#: [id number] / [id number]
[2017-08-20] MEDS: AMITRIPTYLINE HCL 25 MG TABLET PO SCH (21:10)
[2017-08-20] MEDS: traZODone 50 MG TABLET. PO SCH (21:12)
--- NOTE | 2017-08-20 21:17 | PDOC ---
Exam Note: Michi Note: Please also refer to the separate dictated note~for this date of service dictated separately.~Patient seen individually. Discussed the patient with Nursing staff reviewed the chart.~Reviewed interim history and current functioning. Reviewed vital signs,~Labs/ Radiology~and current medications noted below. Continue current treatment with the changes noted in the dictated addendum note Assessment: Vital Signs: Vital Signs Date Time Temp Pulse Resp B/P (MAP) Pulse Ox O2 Delivery O2 Flow Rate FiO2 08/20/17 17:00 75 123/83 08/20/17 16:31 98.2 20 99 08/19/17 16:35 Room Air 08/19/17 07:24 97.0 I&O Intake and Output 08/20/17 07:00 Intake Total 800 ml Balance 800 ml Intake Oral 800 ml # Voids 1 Current Medications: Meds: Current Medications Alprazolam (Xanax) 0.25 mg PRN QHS PRN PO ANXIETY / AGITATION Last administered on 08/18/17at 20:49; Start 07/24/17 at 02:30 Divalproex Sodium (Depakote Sprinkles) 125 mg BID PO Last administered on at 10:54; Start 07/24/17 at 02:30; Stop 07/24/17 at 19:23; Status DC Nortriptyline HCl (Pamelor) 10 mg QHS PO Last administered on 07/24/17at 02:31; Start 07/24/17 at 02:30; Stop 07/24/17 at 19:23; Status DC Rivastigmine (Exelon) 1 patch DAILY TD Last administered on 07/26/17at 14:10; Start 07/24/17 at 09:00; Stop 07/26/17 at 18:24; Status DC Apixaban (Eliquis) 2.5 mg BID PO Last administered on 08/20/17at 21:12; Start at 09:00 Lisinopril (Prinivil) 2.5 mg DAILY PO Last administered on 07/31/17at 10:01; Start 07/24/17 at 09:00; Stop 08/01/17 at 10:51; Status DC Senna/Docusate Sodium (Senna Plus) 1 tab PRN QHS PRN PO CONSTIPATION; Start 05/29 at 08:15 Spironolactone (Aldactone) 25 mg DAILY PO Last administered on 08/20/17at 07:45 ; Start 07/24/17 at 09:00 Carvedilol (Coreg) 25 mg BIDWMEALS PO Last administered on 07/31/17at 17:39; Start 07/24/17 at 08:00; Stop 08/01/17 at 10:51; Status DC Nitroglycerin (Nitrostat) 0.4 mg PRN Q5MIN PRN SL CHEST PAIN; Start 07/24/17 at 08:15 Divalproex Sodium (Depakote Sprinkles) 125 mg TID@0900,1700,2100 PO Last administered on 07/27/17at 08:00; Start 07/24/17 at 21:00; Stop 07/27/17 at 11:48 ; Status DC Mirtazapine (Remeron) 7.5 mg QHS PO ; Start 07/24/17 at 21:00; Stop 07/26/17 at 18:24; Status DC Trazodone HCl (Desyrel) 50 mg QHS PO Last administered on 08/20/17at 21:12; Start 07/25/17 at 21:00 Trazodone HCl (Desyrel) 50 mg PRN QHS PRN PO insomnia Last administered on 08/18at 00:13; Start 07/25/17 at 19:15 Mirtazapine (Remeron) 15 mg QHS PO Last administered on 07/26/17at 23:39; Start 07/26/17 at 21:00; Stop 07/27/17 at 11:48; Status DC Risperidone (RisperDAL) 0.25 mg DAILY SL Last administered on 08/20/17at 07:46; Start 07/27/17 at 09:00 Divalproex Sodium (Depakote Sprinkles) 250 mg TID@0900,1700,2100 PO Last administered on 08/02/17at 16:45; Start 07/27/17 at 17:00; Stop 08/02/17 at 18:53 ; Status DC Amitriptyline HCl (Elavil) 25 mg QHS PO Last administered on 08/20/17at 21:10; Start 07/27/17 at 21:00 Olanzapine (ZyPREXA ZYDIS) 5 mg 1X ONCE PO ; Start 07/27/17 at 19:00; Stop at 23:17; Status DC Olanzapine (ZyPREXA ZYDIS) 5 mg 1X ONCE PO ; Start 07/27/17 at 19:00; Stop at 23:17; Status DC Olanzapine (ZyPREXA ZYDIS) 5 mg 1X ONCE PO Last administered on 07/28/17at 08: 46; Start 07/28/17 at 08:00; Stop 07/28/17 at 08:01; Status DC Olanzapine (ZyPREXA ZYDIS) 5 mg 1X ONCE PO Last administered on 07/28/17at 09: 00; Start 07/28/17 at 09:00; Stop 07/28/17 at 09:01; Status DC Carvedilol (Coreg) 6.25 mg BIDWMEALS PO Last administered on 08/20/17at 17:00; Start 08/01/17 at 17:00 Divalproex Sodium (Depakote Sprinkles) 375 mg BID@0900,2100 PO Last administered on 08/20/17 21:10; Start 08/02/17 at 21:00 Divalproex Sodium (Depakote Sprinkles) 250 mg 1700 PO Last administered on 08/20at 17:00; Start 08/03/17 at 17:00 Vitamin D (Vitamin D3) 50,000 unit WEEKLY PO Last administered on 08/15/17at 07: 12; Start 08/08/17 at 18:00 Fluvoxamine Maleate (Luvox) 25 mg HS PO Last administered on 08/16/17at 20:42; Start 08/14/17 at 21:00; Stop 08/17/17 at 12:50; Status DC Fluvoxamine Maleate (Luvox) 50 mg HS PO Last administered on 08/20/17at 21:12; Start 08/17/17 at 21:00 Acetaminophen (Tylenol) 650 mg PRN Q6HRS PRN PO PAIN / TEMP; Start 08/18/17 at 08:00 Active Scripts Active Reported Senna Plus Tablet (Sennosides/Docusate Sodium) 1 Each Tablet 1 Tab PO PRN QHS PRN Nitrostat (Nitroglycerin) 0.3 Mg Tab.subl 0.3 Mg SL PRN Q5MIN PRN MDD 3 doses in 15 minutes Alprazolam 0.25 Mg Tablet 0.25 Mg PO PRN QHS PRN Spironolactone 25 Mg Tablet 25 Mg PO DAILY EXELON 4.6mg/24hr (Rivastigmine) 1 Each Patch.td24 1 Patch TD DAILY Nortriptyline Hcl 10 Mg Capsule 10 Mg PO QHS Lisinopril 2.5 Mg Tablet 2.5 Mg PO DAILY Eliquis (Apixaban) 2.5 Mg Tablet 2.5 Mg PO BID Depakote Sprinkle (Divalproex Sodium) 125 Mg Cap.sprink 125 Mg PO BID Coreg (Carvedilol) 25 Mg Tablet 25 Mg PO BIDWMEALS I have reviewed the current psychotropics carefully including drug interactions. Risk benefit ratio favors no change other than as noted in my dictated progress note. 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
[2017-08-21 06:11] VITALS: BP 123/81
[2017-08-21] MEDS: SPIRONOLACTONE 25 MG TABLET PO SCH (07:53)
[2017-08-21] MEDS: APIXABAN 2.5 MG TABLET PO SCH ×2 (07:54→19:49)
[2017-08-21] MEDS: CARVEDILOL 6.25 MG TABLET PO SCH ×2 (07:54→16:56)
[2017-08-21] MEDS: DIVALPROEX 125 MG CAP.SPRINK PO SCH ×3 (07:54→19:49)
[2017-08-21] MEDS: risperiDONE ORAL 1 MG/ML 30ml BOTTLE. SL SCH (07:55)
[2017-08-21 16:13] VITALS: BP 98/61
[2017-08-21] MEDS: AMITRIPTYLINE HCL 25 MG TABLET PO SCH (19:49)
[2017-08-21] MEDS: traZODone 50 MG TABLET. PO SCH (19:49)
--- NOTE | 2017-08-21 20:40 | PDOC ---
Exam Note: Michi Note: Please also refer to the separate dictated note~for this date of service dictated separately.~Patient seen individually. Discussed the patient with Nursing staff reviewed the chart.~Reviewed interim history and current functioning. Reviewed vital signs,~Labs/ Radiology~and current medications noted below. Continue current treatment with the changes noted in the dictated addendum note Assessment: Vital Signs: Vital Signs Date Time Temp Pulse Resp B/P (MAP) Pulse Ox O2 Delivery O2 Flow Rate FiO2 08/21/17 16:56 76 98/61 08/21/17 16:13 97.7 16 92 08/19/17 16:35 Room Air 08/19/17 07:24 97.0 I&O Intake and Output 08/21/17 07:00 Intake Total 1080 ml Balance 1080 ml Intake Oral 1080 ml # Voids 1 Current Medications: Meds: Current Medications Alprazolam (Xanax) 0.25 mg PRN QHS PRN PO ANXIETY / AGITATION Last administered on 08/18/17at 20:49; Start 07/24/17 at 02:30 Divalproex Sodium (Depakote Sprinkles) 125 mg BID PO Last administered on at 10:54; Start 07/24/17 at 02:30; Stop 07/24/17 at 19:23; Status DC Nortriptyline HCl (Pamelor) 10 mg QHS PO Last administered on 07/24/17at 02:31; Start 07/24/17 at 02:30; Stop 07/24/17 at 19:23; Status DC Rivastigmine (Exelon) 1 patch DAILY TD Last administered on 07/26/17at 14:10; Start 07/24/17 at 09:00; Stop 07/26/17 at 18:24; Status DC Apixaban (Eliquis) 2.5 mg BID PO Last administered on 08/21/17at 19:49; Start at 09:00 Lisinopril (Prinivil) 2.5 mg DAILY PO Last administered on 07/31/17at 10:01; Start 07/24/17 at 09:00; Stop 08/01/17 at 10:51; Status DC Senna/Docusate Sodium (Senna Plus) 1 tab PRN QHS PRN PO CONSTIPATION; Start 05/29 at 08:15 Spironolactone (Aldactone) 25 mg DAILY PO Last administered on 08/21/17at 07:53 ; Start 07/24/17 at 09:00 Carvedilol (Coreg) 25 mg BIDWMEALS PO Last administered on 07/31/17at 17:39; Start 07/24/17 at 08:00; Stop 08/01/17 at 10:51; Status DC Nitroglycerin (Nitrostat) 0.4 mg PRN Q5MIN PRN SL CHEST PAIN; Start 07/24/17 at 08:15 Divalproex Sodium (Depakote Sprinkles) 125 mg TID@0900,1700,2100 PO Last administered on 07/27/17at 08:00; Start 07/24/17 at 21:00; Stop 07/27/17 at 11:48 ; Status DC Mirtazapine (Remeron) 7.5 mg QHS PO ; Start 07/24/17 at 21:00; Stop 07/26/17 at 18:24; Status DC Trazodone HCl (Desyrel) 50 mg QHS PO Last administered on 08/21/17at 19:49; Start 07/25/17 at 21:00 Trazodone HCl (Desyrel) 50 mg PRN QHS PRN PO insomnia Last administered on 08/18at 00:13; Start 07/25/17 at 19:15 Mirtazapine (Remeron) 15 mg QHS PO Last administered on 07/26/17at 23:39; Start 07/26/17 at 21:00; Stop 07/27/17 at 11:48; Status DC Risperidone (RisperDAL) 0.25 mg DAILY SL Last administered on 08/21/17at 07:55; Start 07/27/17 at 09:00 Divalproex Sodium (Depakote Sprinkles) 250 mg TID@0900,1700,2100 PO Last administered on 08/02/17at 16:45; Start 07/27/17 at 17:00; Stop 08/02/17 at 18:53 ; Status DC Amitriptyline HCl (Elavil) 25 mg QHS PO Last administered on 08/21/17at 19:49; Start 07/27/17 at 21:00 Olanzapine (ZyPREXA ZYDIS) 5 mg 1X ONCE PO ; Start 07/27/17 at 19:00; Stop at 23:17; Status DC Olanzapine (ZyPREXA ZYDIS) 5 mg 1X ONCE PO ; Start 07/27/17 at 19:00; Stop at 23:17; Status DC Olanzapine (ZyPREXA ZYDIS) 5 mg 1X ONCE PO Last administered on 07/28/17at 08: 46; Start 07/28/17 at 08:00; Stop 07/28/17 at 08:01; Status DC Olanzapine (ZyPREXA ZYDIS) 5 mg 1X ONCE PO Last administered on 07/28/17at 09: 00; Start 07/28/17 at 09:00; Stop 07/28/17 at 09:01; Status DC Carvedilol (Coreg) 6.25 mg BIDWMEALS PO Last administered on 08/21/17at 07:54; Start 08/01/17 at 17:00 Divalproex Sodium (Depakote Sprinkles) 375 mg BID@0900,2100 PO Last administered on 08/21/17 19:49; Start 08/02/17 at 21:00 Divalproex Sodium (Depakote Sprinkles) 250 mg 1700 PO Last administered on 08/21at 16:57; Start 08/03/17 at 17:00 Vitamin D (Vitamin D3) 50,000 unit WEEKLY PO Last administered on 08/15/17at 07: 12; Start 08/08/17 at 18:00 Fluvoxamine Maleate (Luvox) 25 mg HS PO Last administered on 08/16/17at 20:42; Start 08/14/17 at 21:00; Stop 08/17/17 at 12:50; Status DC Fluvoxamine Maleate (Luvox) 50 mg HS PO Last administered on 08/21/17 19:49; Start 08/17/17 at 21:00 Acetaminophen (Tylenol) 650 mg PRN Q6HRS PRN PO PAIN / TEMP; Start 08/18/17 at 08:00 Active Scripts Active Reported Senna Plus Tablet (Sennosides/Docusate Sodium) 1 Each Tablet 1 Tab PO PRN QHS PRN Nitrostat (Nitroglycerin) 0.3 Mg Tab.subl 0.3 Mg SL PRN Q5MIN PRN MDD 3 doses in 15 minutes Alprazolam 0.25 Mg Tablet 0.25 Mg PO PRN QHS PRN Spironolactone 25 Mg Tablet 25 Mg PO DAILY EXELON 4.6mg/24hr (Rivastigmine) 1 Each Patch.td24 1 Patch TD DAILY Nortriptyline Hcl 10 Mg Capsule 10 Mg PO QHS Lisinopril 2.5 Mg Tablet 2.5 Mg PO DAILY Eliquis (Apixaban) 2.5 Mg Tablet 2.5 Mg PO BID Depakote Sprinkle (Divalproex Sodium) 125 Mg Cap.sprink 125 Mg PO BID Coreg (Carvedilol) 25 Mg Tablet 25 Mg PO BIDWMEALS I have reviewed the current psychotropics carefully including drug interactions. Risk benefit ratio favors no change other than as noted in my dictated progress note. 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
--- NOTE | 2017-08-21 22:11 | PN ---
DATE: 08/20/2017 This is a late entry, 08/20/2017, covers the elements not covered in my initial note, 08/20/2017. SUBJECTIVE: I met with the patient evening of 08/20/2017. Family came to visit and he has been talking about packing things. 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 He sat himself on the floor. No injuries. Slept 6-1/4 hours. REVIEW OF SYSTEMS: No CV, , pulmonary, eye, ENT system symptoms on review. Reliability poor. MENTAL STATUS EXAM: Oriented to himself. Insight, judgment, recent and remote memory, attention, concentration, fund of knowledge poor, consistent with his diagnosis as mentioned in my initial note. PLAN: Continue current psychotropics. Valproic acid level therapeutic at 74, adjust as indicated clinically. MAN Yamel GALVEZ MD DR: MITCHELL/julio c JOB#: [id number] / [id number]
[2017-08-22 06:11] VITALS: BP 103/68
[2017-08-22] MEDS: APIXABAN 2.5 MG TABLET PO SCH ×2 (09:22→20:33)
[2017-08-22] MEDS: SPIRONOLACTONE 25 MG TABLET PO SCH (09:22)
[2017-08-22] MEDS: CARVEDILOL 6.25 MG TABLET PO SCH ×2 (09:22→16:57)
[2017-08-22] MEDS: DIVALPROEX 125 MG CAP.SPRINK PO SCH ×3 (09:22→20:32)
[2017-08-22] MEDS: CHOLECALCIFEROL (VITAMIN D3) 50,000 UNIT CAPSULE PO SCH (09:24)
[2017-08-22] MEDS: risperiDONE ORAL 1 MG/ML 30ml BOTTLE. SL SCH (09:25)
[2017-08-22 16:04] VITALS: BP 109/69
[2017-08-22] MEDS: AMITRIPTYLINE HCL 25 MG TABLET PO SCH (20:33)
[2017-08-22] MEDS: traZODone 50 MG TABLET. PO SCH (20:33)
--- NOTE | 2017-08-22 22:32 | PDOC ---
Exam Note: Michi Note: Please also refer to the separate dictated note~for this date of service dictated separately.~Patient seen individually. Discussed the patient with Nursing staff reviewed the chart.~Reviewed interim history and current functioning. Reviewed vital signs,~Labs/ Radiology~and current medications noted below. Continue current treatment with the changes noted in the dictated addendum note Assessment: Vital Signs: Vital Signs Date Time Temp Pulse Resp B/P (MAP) Pulse Ox O2 Delivery O2 Flow Rate FiO2 08/22/17 16:57 78 109/69 08/22/17 16:04 97.4 16 98 08/19/17 16:35 Room Air 08/19/17 07:24 97.0 I&O Intake and Output 08/22/17 07:00 Intake Total 960 ml Balance 960 ml Intake Oral 960 ml # Voids 1 Current Medications: Meds: Current Medications Alprazolam (Xanax) 0.25 mg PRN QHS PRN PO ANXIETY / AGITATION Last administered on 08/18/17at 20:49; Start 07/24/17 at 02:30 Divalproex Sodium (Depakote Sprinkles) 125 mg BID PO Last administered on at 10:54; Start 07/24/17 at 02:30; Stop 07/24/17 at 19:23; Status DC Nortriptyline HCl (Pamelor) 10 mg QHS PO Last administered on 07/24/17at 02:31; Start 07/24/17 at 02:30; Stop 07/24/17 at 19:23; Status DC Rivastigmine (Exelon) 1 patch DAILY TD Last administered on 07/26/17at 14:10; Start 07/24/17 at 09:00; Stop 07/26/17 at 18:24; Status DC Apixaban (Eliquis) 2.5 mg BID PO Last administered on 08/22/17at 20:33; Start at 09:00 Lisinopril (Prinivil) 2.5 mg DAILY PO Last administered on 07/31/17at 10:01; Start 07/24/17 at 09:00; Stop 08/01/17 at 10:51; Status DC Senna/Docusate Sodium (Senna Plus) 1 tab PRN QHS PRN PO CONSTIPATION; Start 05/29 at 08:15 Spironolactone (Aldactone) 25 mg DAILY PO Last administered on 08/22/17 09:22 ; Start 07/24/17 at 09:00 Carvedilol (Coreg) 25 mg BIDWMEALS PO Last administered on 07/31/17at 17:39; Start 07/24/17 at 08:00; Stop 08/01/17 at 10:51; Status DC Nitroglycerin (Nitrostat) 0.4 mg PRN Q5MIN PRN SL CHEST PAIN; Start 07/24/17 at 08:15 Divalproex Sodium (Depakote Sprinkles) 125 mg TID@0900,1700,2100 PO Last administered on 07/27/17at 08:00; Start 07/24/17 at 21:00; Stop 07/27/17 at 11:48 ; Status DC Mirtazapine (Remeron) 7.5 mg QHS PO ; Start 07/24/17 at 21:00; Stop 07/26/17 at 18:24; Status DC Trazodone HCl (Desyrel) 50 mg QHS PO Last administered on 08/22/17 20:33; Start 07/25/17 at 21:00 Trazodone HCl (Desyrel) 50 mg PRN QHS PRN PO insomnia Last administered on 08/18at 00:13; Start 07/25/17 at 19:15 Mirtazapine (Remeron) 15 mg QHS PO Last administered on 07/26/17at 23:39; Start 07/26/17 at 21:00; Stop 07/27/17 at 11:48; Status DC Risperidone (RisperDAL) 0.25 mg DAILY SL Last administered on 08/22/17at 09:25; Start 07/27/17 at 09:00 Divalproex Sodium (Depakote Sprinkles) 250 mg TID@0900,1700,2100 PO Last administered on 08/02/17at 16:45; Start 07/27/17 at 17:00; Stop 08/02/17 at 18:53 ; Status DC Amitriptyline HCl (Elavil) 25 mg QHS PO Last administered on 08/22/17at 20:33; Start 07/27/17 at 21:00 Olanzapine (ZyPREXA ZYDIS) 5 mg 1X ONCE PO ; Start 07/27/17 at 19:00; Stop at 23:17; Status DC Olanzapine (ZyPREXA ZYDIS) 5 mg 1X ONCE PO ; Start 07/27/17 at 19:00; Stop at 23:17; Status DC Olanzapine (ZyPREXA ZYDIS) 5 mg 1X ONCE PO Last administered on 07/28/17at 08: 46; Start 07/28/17 at 08:00; Stop 07/28/17 at 08:01; Status DC Olanzapine (ZyPREXA ZYDIS) 5 mg 1X ONCE PO Last administered on 07/28/17at 09: 00; Start 07/28/17 at 09:00; Stop 07/28/17 at 09:01; Status DC Carvedilol (Coreg) 6.25 mg BIDWMEALS PO Last administered on 08/22/17 16:57; Start 08/01/17 at 17:00 Divalproex Sodium (Depakote Sprinkles) 375 mg BID@0900,2100 PO Last administered on 08/22/17 20:32; Start 08/02/17 at 21:00 Divalproex Sodium (Depakote Sprinkles) 250 mg 1700 PO Last administered on 08/22 16:57; Start 08/03/17 at 17:00 Vitamin D (Vitamin D3) 50,000 unit WEEKLY PO Last administered on 08/22/17at 09: 24; Start 08/08/17 at 18:00 Fluvoxamine Maleate (Luvox) 25 mg HS PO Last administered on 08/16/17at 20:42; Start 08/14/17 at 21:00; Stop 08/17/17 at 12:50; Status DC Fluvoxamine Maleate (Luvox) 50 mg HS PO Last administered on 08/22/17 20:32; Start 08/17/17 at 21:00 Acetaminophen (Tylenol) 650 mg PRN Q6HRS PRN PO PAIN / TEMP; Start 08/18/17 at 08:00 Active Scripts Active Reported Senna Plus Tablet (Sennosides/Docusate Sodium) 1 Each Tablet 1 Tab PO PRN QHS PRN Nitrostat (Nitroglycerin) 0.3 Mg Tab.subl 0.3 Mg SL PRN Q5MIN PRN MDD 3 doses in 15 minutes Alprazolam 0.25 Mg Tablet 0.25 Mg PO PRN QHS PRN Spironolactone 25 Mg Tablet 25 Mg PO DAILY EXELON 4.6mg/24hr (Rivastigmine) 1 Each Patch.td24 1 Patch TD DAILY Nortriptyline Hcl 10 Mg Capsule 10 Mg PO QHS Lisinopril 2.5 Mg Tablet 2.5 Mg PO DAILY Eliquis (Apixaban) 2.5 Mg Tablet 2.5 Mg PO BID Depakote Sprinkle (Divalproex Sodium) 125 Mg Cap.sprink 125 Mg PO BID Coreg (Carvedilol) 25 Mg Tablet 25 Mg PO BIDWMEALS I have reviewed the current psychotropics carefully including drug interactions. Risk benefit ratio favors no change other than as noted in my dictated progress note. 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
--- NOTE | 2017-08-22 22:50 | PN ---
DATE: 08/21/2017 PSYCHIATRIC PROGRESS NOTE This late entry 08/21/2017 covers elements not covered in my initial note of 08/21/2017. SUBJECTIVE: Met with the patient in the evening of 08/21/2017. The patient slept 7-1/2 hours previous evening remains confused, disorganized, takes half of his medications at night, spit out his p.m. 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 REVIEW OF SYSTEMS: No CV, , eye, ENT, pulmonary system symptoms on review. Reliability is poor. MENTAL STATUS EXAM: Oriented to himself. Insight, judgment, recent and remote memory, attention, concentration, fund of knowledge is poor, consistent with his diagnoses mentioned in my initial note. PLAN: Continue current psychotropics. Valproic acid level is therapeutic at 74. Adjust further as clinically indicated. MAN Yamel GALVEZ MD DR: MITCHELL/julio c JOB#: [id number] / [id number]
[2017-08-23 06:14] VITALS: BP 105/68
[2017-08-23 07:53] LABS: BASO # 0.1 x10^3/uL (0.0-0.2); BASO % 1 % (0-3); EOS # 0.3 x10^3/uL (0.0-0.7); EOS % 6 % (0-3); HEMATOCRIT 40.6 % (39.0-53.0); HEMOGLOBIN 13.8 g/dL (13.0-17.5); LYMPH % 36 % (24-48); MEAN CORPUSCULAR HEMOGLOBIN 33 pg (25-35); MEAN CORPUSCULAR HGB CONC 34 g/dL (31-37); MEAN CORPUSCULAR VOLUME 97 fL (79-100); MONO # 0.9 x10^3/uL (0.0-1.1); MONO % 16 % (0-9); NEUT # 2.3 x10^3uL (1.8-7.7); NEUT % 42 % (31-73); PLATELET COUNT 143 x10^3/uL (140-400); RED BLOOD COUNT 4.18 x10^6/uL (4.30-5.70); RED CELL DISTRIBUTION WIDTH 13.8 % (11.5-14.5); WHITE BLOOD COUNT 5.5 x10^3/uL (4.0-11.0)
[2017-08-23 08:08] LABS: ALBUMIN 2.9 g/dL (3.4-5.0); ALBUMIN/GLOBULIN RATIO 0.7 (1.0-1.7); ALK PHOS 48 U/L (46-116); ALT (SGPT) 10 U/L (16-63); ANION GAP 5 (6-14); AST (SGOT) 25 U/L (15-37); BLOOD UREA NITROGEN 20 mg/dL (8-26); BUN/CREATININE RATIO 15 (6-20); CALCIUM 9.2 mg/dL (8.5-10.1); CARBON DIOXIDE 31 mmol/L (21-32); CHLORIDE 102 mmol/L (98-107); CREATININE 1.3 mg/dL (0.7-1.3); GFR 52.1; GLUCOSE 82 mg/dL (70-99); MAGNESIUM 1.8 mg/dL (1.8-2.4); POTASSIUM 3.9 mmol/L (3.5-5.1); SODIUM 138 mmol/L (136-145); TOTAL BILIRUBIN 0.4 mg/dL (0.2-1.0)
[2017-08-23 08:13] LABS: VAL ACID 68 mcg/mL (50-100)
[2017-08-23] MEDS: CARVEDILOL 6.25 MG TABLET PO SCH ×2 (08:57→17:26)
[2017-08-23] MEDS: SPIRONOLACTONE 25 MG TABLET PO SCH (08:57)
[2017-08-23] MEDS: APIXABAN 2.5 MG TABLET PO SCH ×2 (08:57→20:48)
[2017-08-23] MEDS: DIVALPROEX 125 MG CAP.SPRINK PO SCH ×3 (08:57→20:49)
[2017-08-23] MEDS: risperiDONE ORAL 1 MG/ML 30ml BOTTLE. SL SCH (09:02)
[2017-08-23 09:16] LABS: % BASOS 2 % (0-3); % EOS 4 % (0-5); % LYMPHS 39 % (24-48); % MONOS 14 % (0-10); % SEGS 30 % (35-66); PLATELET CLUMP PRESENT; PLT ESTIMATE ADEQUATE (ADEQUATE)
[2017-08-23 16:38] VITALS: BP 109/69
[2017-08-23 20:27] VITALS: BP 125/74
[2017-08-23] MEDS: AMITRIPTYLINE HCL 25 MG TABLET PO SCH (20:48)
[2017-08-23] MEDS: traZODone 50 MG TABLET. PO SCH (20:49)
--- NOTE | 2017-08-23 20:55 | PDOC ---
Exam Note: Michi Note: Please also refer to the separate dictated note~for this date of service dictated separately.~Patient seen individually. Discussed the patient with Nursing staff reviewed the chart.~Reviewed interim history and current functioning. Reviewed vital signs,~Labs/ Radiology~and current medications noted below. Continue current treatment with the changes noted in the dictated addendum note Assessment: Vital Signs: Vital Signs Date Time Temp Pulse Resp B/P (MAP) Pulse Ox O2 Delivery O2 Flow Rate FiO2 08/23/17 20:27 75 125/74 (91) 100 08/23/17 16:38 97.6 20 08/19/17 16:35 Room Air 08/19/17 07:24 97.0 I&O Intake and Output 08/23/17 07:00 Intake Total 1320 ml Balance 1320 ml Intake Oral 1320 ml # Voids 1 Labs: Laboratory Tests Test 08/23/17 07:26 White Blood Count 5.5 x10^3/uL (4.0-11.0) Red Blood Count 4.18 x10^6/uL (4.30-5.70) L Hemoglobin 13.8 g/dL (13.0-17.5) Hematocrit 40.6 % (39.0-53.0) Mean Corpuscular Volume 97 fL (79-100) Mean Corpuscular Hemoglobin 33 pg (25-35) Mean Corpuscular Hemoglobin Concent 34 g/dL (31-37) Red Cell Distribution Width 13.8 % (11.5-14.5) Platelet Count 143 x10^3/uL (140-400) Neutrophils (%) (Auto) 42 % (31-73) Lymphocytes (%) (Auto) 36 % (24-48) Monocytes (%) (Auto) 16 % (0-9) H Eosinophils (%) (Auto) 6 % (0-3) H Basophils (%) (Auto) 1 % (0-3) Neutrophils # (Auto) 2.3 x10^3uL (1.8-7.7) Lymphocytes # (Auto) 2.0 x10^3/uL (1.0-4.8) Monocytes # (Auto) 0.9 x10^3/uL (0.0-1.1) Eosinophils # (Auto) 0.3 x10^3/uL (0.0-0.7) Basophils # (Auto) 0.1 x10^3/uL (0.0-0.2) Segmented Neutrophils % 30 % (35-66) L Lymphocytes % 39 % (24-48) Monocytes % 14 % (0-10) H Eosinophils % 4 % (0-5) Basophils % 2 % (0-3) Platelet Estimate Adequate (ADEQUATE) Platelet Clumps, EDTA Present Sodium Level 138 mmol/L (136-145) Potassium Level 3.9 mmol/L (3.5-5.1) Chloride Level 102 mmol/L (98-107) Carbon Dioxide Level 31 mmol/L (21-32) Anion Gap 5 (6-14) L Blood Urea Nitrogen 20 mg/dL (8-26) Creatinine 1.3 mg/dL (0.7-1.3) Estimated GFR (Cockcroft-Gault) 52.1 BUN/Creatinine Ratio 15 (6-20) Glucose Level 82 mg/dL (70-99) Calcium Level 9.2 mg/dL (8.5-10.1) Magnesium Level 1.8 mg/dL (1.8-2.4) Total Bilirubin 0.4 mg/dL (0.2-1.0) Aspartate Amino Transferase (AST) 25 U/L (15-37) Alanine Aminotransferase (ALT) 10 U/L (16-63) L Alkaline Phosphatase 48 U/L (46-116) Total Protein 7.0 g/dL (6.4-8.2) Albumin 2.9 g/dL (3.4-5.0) L Albumin/Globulin Ratio 0.7 (1.0-1.7) L Valproic Acid Level 68 mcg/mL (50-100) Valproic Acid Last Dose Date 08/22/17 Valproic Acid Last Dose Time 2100 Current Medications: Meds: Current Medications Alprazolam (Xanax) 0.25 mg PRN QHS PRN PO ANXIETY / AGITATION Last administered on 08/18/17at 20:49; Start 07/24/17 at 02:30 Divalproex Sodium (Depakote Sprinkles) 125 mg BID PO Last administered on at 10:54; Start 07/24/17 at 02:30; Stop 07/24/17 at 19:23; Status DC Nortriptyline HCl (Pamelor) 10 mg QHS PO Last administered on 07/24/17at 02:31; Start 07/24/17 at 02:30; Stop 07/24/17 at 19:23; Status DC Rivastigmine (Exelon) 1 patch DAILY TD Last administered on 07/26/17at 14:10; Start 07/24/17 at 09:00; Stop 07/26/17 at 18:24; Status DC Apixaban (Eliquis) 2.5 mg BID PO Last administered on 08/23/17at 20:48; Start at 09:00 Lisinopril (Prinivil) 2.5 mg DAILY PO Last administered on 07/31/17at 10:01; Start 07/24/17 at 09:00; Stop 08/01/17 at 10:51; Status DC Senna/Docusate Sodium (Senna Plus) 1 tab PRN QHS PRN PO CONSTIPATION; Start 05/29 at 08:15 Spironolactone (Aldactone) 25 mg DAILY PO Last administered on 08/23/17at 08:57 ; Start 07/24/17 at 09:00 Carvedilol (Coreg) 25 mg BIDWMEALS PO Last administered on 07/31/17at 17:39; Start 07/24/17 at 08:00; Stop 08/01/17 at 10:51; Status DC Nitroglycerin (Nitrostat) 0.4 mg PRN Q5MIN PRN SL CHEST PAIN; Start 07/24/17 at 08:15 Divalproex Sodium (Depakote Sprinkles) 125 mg TID@0900,1700,2100 PO Last administered on 07/27/17at 08:00; Start 07/24/17 at 21:00; Stop 07/27/17 at 11:48 ; Status DC Mirtazapine (Remeron) 7.5 mg QHS PO ; Start 07/24/17 at 21:00; Stop 07/26/17 at 18:24; Status DC Trazodone HCl (Desyrel) 50 mg QHS PO Last administered on 08/23/17at 20:49; Start 07/25/17 at 21:00 Trazodone HCl (Desyrel) 50 mg PRN QHS PRN PO insomnia Last administered on 08/18 00:13; Start 07/25/17 at 19:15 Mirtazapine (Remeron) 15 mg QHS PO Last administered on 07/26/17at 23:39; Start 07/26/17 at 21:00; Stop 07/27/17 at 11:48; Status DC Risperidone (RisperDAL) 0.25 mg DAILY SL Last administered on 08/23/17 09:02; Start 07/27/17 at 09:00 Divalproex Sodium (Depakote Sprinkles) 250 mg TID@0900,1700,2100 PO Last administered on 08/02/17at 16:45; Start 07/27/17 at 17:00; Stop 08/02/17 at 18:53 ; Status DC Amitriptyline HCl (Elavil) 25 mg QHS PO Last administered on 08/23/17at 20:48; Start 07/27/17 at 21:00 Olanzapine (ZyPREXA ZYDIS) 5 mg 1X ONCE PO ; Start 07/27/17 at 19:00; Stop at 23:17; Status DC Olanzapine (ZyPREXA ZYDIS) 5 mg 1X ONCE PO ; Start 07/27/17 at 19:00; Stop at 23:17; Status DC Olanzapine (ZyPREXA ZYDIS) 5 mg 1X ONCE PO Last administered on 07/28/17at 08: 46; Start 07/28/17 at 08:00; Stop 07/28/17 at 08:01; Status DC Olanzapine (ZyPREXA ZYDIS) 5 mg 1X ONCE PO Last administered on 07/28/17at 09: 00; Start 07/28/17 at 09:00; Stop 07/28/17 at 09:01; Status DC Carvedilol (Coreg) 6.25 mg BIDWMEALS PO Last administered on 08/23/17 17:26; Start 08/01/17 at 17:00 Divalproex Sodium (Depakote Sprinkles) 375 mg BID@0900,2100 PO Last administered on 08/23/17at 20:49; Start 08/02/17 at 21:00 Divalproex Sodium (Depakote Sprinkles) 250 mg 1700 PO Last administered on 3/14 /18at 17:26; Start 08/03/17 at 17:00 Vitamin D (Vitamin D3) 50,000 unit WEEKLY PO Last administered on 08/22/17at 09: 24; Start 08/08/17 at 18:00 Fluvoxamine Maleate (Luvox) 25 mg HS PO Last administered on 08/16/17at 20:42; Start 08/14/17 at 21:00; Stop 08/17/17 at 12:50; Status DC Fluvoxamine Maleate (Luvox) 50 mg HS PO Last administered on 08/23/17at 20:48; Start 08/17/17 at 21:00 Acetaminophen (Tylenol) 650 mg PRN Q6HRS PRN PO PAIN / TEMP; Start 08/18/17 at 08:00 Active Scripts Active Reported Senna Plus Tablet (Sennosides/Docusate Sodium) 1 Each Tablet 1 Tab PO PRN QHS PRN Nitrostat (Nitroglycerin) 0.3 Mg Tab.subl 0.3 Mg SL PRN Q5MIN PRN MDD 3 doses in 15 minutes Alprazolam 0.25 Mg Tablet 0.25 Mg PO PRN QHS PRN Spironolactone 25 Mg Tablet 25 Mg PO DAILY EXELON 4.6mg/24hr (Rivastigmine) 1 Each Patch.td24 1 Patch TD DAILY Nortriptyline Hcl 10 Mg Capsule 10 Mg PO QHS Lisinopril 2.5 Mg Tablet 2.5 Mg PO DAILY Eliquis (Apixaban) 2.5 Mg Tablet 2.5 Mg PO BID Depakote Sprinkle (Divalproex Sodium) 125 Mg Cap.sprink 125 Mg PO BID Coreg (Carvedilol) 25 Mg Tablet 25 Mg PO BIDWMEALS I have reviewed the current psychotropics carefully including drug interactions. Risk benefit ratio favors no change other than as noted in my dictated progress note. 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
[2017-08-24 06:28] VITALS: BP 124/70
[2017-08-24] MEDS: SPIRONOLACTONE 25 MG TABLET PO SCH (08:52)
[2017-08-24] MEDS: DIVALPROEX 125 MG CAP.SPRINK PO SCH ×3 (08:52→20:09)
[2017-08-24] MEDS: CARVEDILOL 6.25 MG TABLET PO SCH ×2 (08:53→17:01)
[2017-08-24] MEDS: APIXABAN 2.5 MG TABLET PO SCH ×2 (08:53→20:10)
[2017-08-24] MEDS: risperiDONE ORAL 1 MG/ML 30ml BOTTLE. SL SCH (08:54)
[2017-08-24 16:35] VITALS: BP 104/70
[2017-08-24] MEDS: traZODone 50 MG TABLET. PO SCH (20:10)
[2017-08-24] MEDS: AMITRIPTYLINE HCL 25 MG TABLET PO SCH (20:10)
--- NOTE | 2017-08-24 20:40 | PDOC ---
Exam Note: Michi Note: Please also refer to the separate dictated note~for this date of service dictated separately.~Patient seen individually. Discussed the patient with Nursing staff reviewed the chart.~Reviewed interim history and current functioning. Reviewed vital signs,~Labs/ Radiology~and current medications noted below. Continue current treatment with the changes noted in the dictated addendum note Assessment: Vital Signs: Vital Signs Date Time Temp Pulse Resp B/P (MAP) Pulse Ox O2 Delivery O2 Flow Rate FiO2 08/24/17 17:01 76 104/70 08/24/17 16:35 97.1 16 100 Room Air 08/19/17 07:24 97.0 I&O Intake and Output 08/24/17 07:00 Intake Total 360 ml Balance 360 ml Intake Oral 360 ml # Voids 1 Current Medications: Meds: Current Medications Alprazolam (Xanax) 0.25 mg PRN QHS PRN PO ANXIETY / AGITATION Last administered on 08/18/17at 20:49; Start 07/24/17 at 02:30 Divalproex Sodium (Depakote Sprinkles) 125 mg BID PO Last administered on at 10:54; Start 07/24/17 at 02:30; Stop 07/24/17 at 19:23; Status DC Nortriptyline HCl (Pamelor) 10 mg QHS PO Last administered on 07/24/17at 02:31; Start 07/24/17 at 02:30; Stop 07/24/17 at 19:23; Status DC Rivastigmine (Exelon) 1 patch DAILY TD Last administered on 07/26/17at 14:10; Start 07/24/17 at 09:00; Stop 07/26/17 at 18:24; Status DC Apixaban (Eliquis) 2.5 mg BID PO Last administered on 08/24/17at 20:10; Start at 09:00 Lisinopril (Prinivil) 2.5 mg DAILY PO Last administered on 07/31/17at 10:01; Start 07/24/17 at 09:00; Stop 08/01/17 at 10:51; Status DC Senna/Docusate Sodium (Senna Plus) 1 tab PRN QHS PRN PO CONSTIPATION; Start 05/29 at 08:15 Spironolactone (Aldactone) 25 mg DAILY PO Last administered on 08/24/17at 08:52 ; Start 07/24/17 at 09:00 Carvedilol (Coreg) 25 mg BIDWMEALS PO Last administered on 07/31/17at 17:39; Start 07/24/17 at 08:00; Stop 08/01/17 at 10:51; Status DC Nitroglycerin (Nitrostat) 0.4 mg PRN Q5MIN PRN SL CHEST PAIN; Start 07/24/17 at 08:15 Divalproex Sodium (Depakote Sprinkles) 125 mg TID@0900,1700,2100 PO Last administered on 07/27/17at 08:00; Start 07/24/17 at 21:00; Stop 07/27/17 at 11:48 ; Status DC Mirtazapine (Remeron) 7.5 mg QHS PO ; Start 07/24/17 at 21:00; Stop 07/26/17 at 18:24; Status DC Trazodone HCl (Desyrel) 50 mg QHS PO Last administered on 08/24/17at 20:10; Start 07/25/17 at 21:00 Trazodone HCl (Desyrel) 50 mg PRN QHS PRN PO insomnia Last administered on 08/18at 00:13; Start 07/25/17 at 19:15 Mirtazapine (Remeron) 15 mg QHS PO Last administered on 07/26/17at 23:39; Start 07/26/17 at 21:00; Stop 07/27/17 at 11:48; Status DC Risperidone (RisperDAL) 0.25 mg DAILY SL Last administered on 08/24/17at 08:54; Start 07/27/17 at 09:00 Divalproex Sodium (Depakote Sprinkles) 250 mg TID@0900,1700,2100 PO Last administered on 08/02/17at 16:45; Start 07/27/17 at 17:00; Stop 08/02/17 at 18:53 ; Status DC Amitriptyline HCl (Elavil) 25 mg QHS PO Last administered on 08/24/17at 20:10; Start 07/27/17 at 21:00 Olanzapine (ZyPREXA ZYDIS) 5 mg 1X ONCE PO ; Start 07/27/17 at 19:00; Stop at 23:17; Status DC Olanzapine (ZyPREXA ZYDIS) 5 mg 1X ONCE PO ; Start 07/27/17 at 19:00; Stop at 23:17; Status DC Olanzapine (ZyPREXA ZYDIS) 5 mg 1X ONCE PO Last administered on 07/28/17at 08: 46; Start 07/28/17 at 08:00; Stop 07/28/17 at 08:01; Status DC Olanzapine (ZyPREXA ZYDIS) 5 mg 1X ONCE PO Last administered on 07/28/17at 09: 00; Start 07/28/17 at 09:00; Stop 07/28/17 at 09:01; Status DC Carvedilol (Coreg) 6.25 mg BIDWMEALS PO Last administered on 08/24/17at 17:01; Start 08/01/17 at 17:00 Divalproex Sodium (Depakote Sprinkles) 375 mg BID@0900,2100 PO Last administered on 08/24/17at 20:09; Start 08/02/17 at 21:00 Divalproex Sodium (Depakote Sprinkles) 250 mg 1700 PO Last administered on 08/24at 17:01; Start 08/03/17 at 17:00 Vitamin D (Vitamin D3) 50,000 unit WEEKLY PO Last administered on 08/22/17at 09: 24; Start 08/08/17 at 18:00 Fluvoxamine Maleate (Luvox) 25 mg HS PO Last administered on 08/16/17at 20:42; Start 08/14/17 at 21:00; Stop 08/17/17 at 12:50; Status DC Fluvoxamine Maleate (Luvox) 50 mg HS PO Last administered on 08/24/17at 20:09; Start 08/17/17 at 21:00 Acetaminophen (Tylenol) 650 mg PRN Q6HRS PRN PO PAIN / TEMP; Start 08/18/17 at 08:00 Active Scripts Active Reported Senna Plus Tablet (Sennosides/Docusate Sodium) 1 Each Tablet 1 Tab PO PRN QHS PRN Nitrostat (Nitroglycerin) 0.3 Mg Tab.subl 0.3 Mg SL PRN Q5MIN PRN MDD 3 doses in 15 minutes Alprazolam 0.25 Mg Tablet 0.25 Mg PO PRN QHS PRN Spironolactone 25 Mg Tablet 25 Mg PO DAILY EXELON 4.6mg/24hr (Rivastigmine) 1 Each Patch.td24 1 Patch TD DAILY Nortriptyline Hcl 10 Mg Capsule 10 Mg PO QHS Lisinopril 2.5 Mg Tablet 2.5 Mg PO DAILY Eliquis (Apixaban) 2.5 Mg Tablet 2.5 Mg PO BID Depakote Sprinkle (Divalproex Sodium) 125 Mg Cap.sprink 125 Mg PO BID Coreg (Carvedilol) 25 Mg Tablet 25 Mg PO BIDWMEALS I have reviewed the current psychotropics carefully including drug interactions. Risk benefit ratio favors no change other than as noted in my dictated progress note. 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
--- NOTE | 2017-08-25 00:32 | PN ---
DATE: 08/22/2017 This late entry 08/22/2017 covers elements not covered in my initial note 08/22/2017. Met with the patient evening of 08/22/2017. SUBJECTIVE: The patient tends to pocket his medications, a little noncompliance, slept 5-1/4 hours previous evening, took his medications later with vanilla ice cream. At times, seems to have appropriate conversation despite his confusion. REVIEW OF SYSTEMS: No CV, , pulmonary, eye, ENT system symptoms on review. Reliability poor. MENTAL STATUS EXAM: Oriented to himself. Insight, judgment, recent and remote memory, attention, concentration, fund of knowledge poor, consistent with his diagnosis mentioned in my initial note. PLAN: Continue psychotropics mentioned in my initial note for now. MAN Yamel GALVEZ MD DR: MITCHELL/julio c JOB#: [id number] / [id number]
[2017-08-25] MEDS ORDERED: ACET325T9 PO (03:31)
[2017-08-25] MEDS ORDERED: CARV6.25 PO (03:32)
[2017-08-25] MEDS ORDERED: AMIT25TA PO (03:32)
[2017-08-25] MEDS ORDERED: DIVA125C PO (03:34)
[2017-08-25] MEDS ORDERED: NITR0.4T SL (03:35)
[2017-08-25] MEDS ORDERED: CHOL500050 PO (03:36)
[2017-08-25] MEDS ORDERED: FLUV50TA2 PO (03:38)
[2017-08-25] MEDS ORDERED: RISP1SOL6 SL (03:39)
[2017-08-25] MEDS ORDERED: TRAZ50TA15 PO ×2 (03:40→03:41)
[2017-08-25 06:13] VITALS: BP 132/81
[2017-08-25 07:29] VITALS: BP 132/81
[2017-08-25] MEDS: DIVALPROEX 125 MG CAP.SPRINK PO SCH (07:29)
[2017-08-25] MEDS: APIXABAN 2.5 MG TABLET PO SCH (07:29)
[2017-08-25] MEDS: SPIRONOLACTONE 25 MG TABLET PO SCH (07:29)
[2017-08-25] MEDS: CARVEDILOL 6.25 MG TABLET PO SCH (07:29)
[2017-08-25] MEDS: risperiDONE ORAL 1 MG/ML 30ml BOTTLE. SL SCH (07:30)
--- NOTE | 2017-08-26 07:00 | PN ---
DATE: 08/23/2017 This late entry of 08/23/2017 covers the elements not covered in my initial note 08/23/2017. HISTORY OF PRESENT ILLNESS: I met with the patient in the evening of 08/23/2017. The patient did well the previous evening, somewhat delusional, confused during the day on 08/23/2017. He was packing boxes. REVIEW OF SYSTEMS: No CV, , pulmonary, eye, ENT system symptoms on review. Reliability poor. MENTAL STATUS EXAM: Oriented to himself. Insight, judgment, recent and remote memory, attention, concentration, fund of knowledge poor, consistent with his diagnosis, unchanged from initial note. PLAN: No changes. LUIS CARLOS GALVEZ MD DR: MITCHELL/julio c JOB#: [id number] / [id number]
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
--- NOTE | 2017-08-27 00:58 | PN ---
DATE: 08/24/2017 This is a late entry for 08/24/2017 and covers the elements not covered in my initial note of 08/24/2017. SUBJECTIVE: I met with the patient in the evening of 08/24/2017 and staffed at a treatment team meeting with the entire team in the morning. The patient remains confused, but more redirectable. REVIEW OF SYSTEMS: No CV, , pulmonary, eye system symptoms on review. MENTAL STATUS EXAM: Oriented to himself. Insight, judgment, recent and remote memory, attention, concentration, fund of knowledge poor, consistent with his diagnosis mentioned in my initial note. PLAN: No change from initial note. MAN Yamel GALVEZ MD DR: MITCHELL/julio c JOB#: [id number] / [id number]
== END 2017-08-25 10:15 | DRG 884 ==
LOC: ER 23:27 → GEROPSY 07-24 01:48
PROVIDERS: ADMIT Psychiatry & Neurology Psychiatry; ATTEND Psychiatry & Neurology Psychiatry
DX: F01.51 Vascular dementia, unspecified severity, with behavioral disturbance (principal); D72.1 Eosinophilia; I48.91 Unspecified atrial fibrillation; F02.81 Dementia in other diseases classified elsewhere, unspecified severity, with behavioral disturbance; I13.0 Hypertensive heart and chronic kidney disease with heart failure and stage 1 through stage 4 chronic kidney disease, or unspecified chronic kidney disease; W18.39XA Other fall on same level, initial encounter; G30.1 Alzheimer's disease with late onset; I50.9 Heart failure, unspecified; F32.9 Major depressive disorder, single episode, unspecified; F41.9 Anxiety disorder, unspecified; F63.9 Impulse disorder, unspecified; G47.00 Insomnia, unspecified; I25.10 Atherosclerotic heart disease of native coronary artery without angina pectoris; F42.9 Obsessive-compulsive disorder, unspecified; K21.9 Gastro-esophageal reflux disease without esophagitis; N18.9 Chronic kidney disease, unspecified; Y92.002 Bathroom of unspecified non-institutional (private) residence as the place of occurrence of the external cause; Z91.19 Patient's noncompliance with other medical treatment and regimen; Z95.1 Presence of aortocoronary bypass graft; Z95.810 Presence of automatic (implantable) cardiac defibrillator; Z88.8 Allergy status to other drugs, medicaments and biological substances; Y93.89 Activity, other specified; Y99.8 Other external cause status; Z91.83 Wandering in diseases classified elsewhere
CPT/HCPCS: 36415; 70450; 80048; 80053; 80061; 80164; 81001; 82140; 82306; 82607; 83036; 83540; 83550; 83735; 84436; 84443; 84480; 85007; 85025; 85610; 86593; 93005; 99285-25